=== PATIENT | male | born 1940 | race Caucasian/White ===

== ENCOUNTER 2016-10-27 12:45 | Emergency (ER) | payer OTHER ==
[2016-10-27 12:54] VITALS: BP 165/94; PULSE 64; RESP 18; TEMP 99; O2SAT 96
[2016-10-27] MEDS ORDERED: LIDOCAINE 2% JELLY 20 ML (UROJECT) ONE (13:51)
[2016-10-27 14:39] LABS: LEUKOCYTE ESTERASE,URINE 1+ (NEGATIVE)
[2016-10-27 14:43] LABS: COLOR AMBER
[2016-10-27 14:44] LABS: NITRITE,URINE NEGATIVE (NEGATIVE)
[2016-10-27 14:54] LABS: BACTERIA TRACE /hpf (NONE SEEN); MUCUS 1+ /lpf (NONE-1+); RBC,URINE >182 /hpf (0-3)
--- NOTE | 2016-10-27 14:59 | EDPHY ---
H & P Time Seen by Provider: 10/27/16 12:51 HPI/ROS: CHIEF COMPLAINT: Neumann catheter problem History by patient HISTORY OF PRESENT ILLNESS: 76-year-old man who presents complaining of pain and discomfort at the site of his Neumann catheter and leaking around the catheter. Catheter was placed 2 days ago at the OR when he was diagnosed with the UTI. Subsequently it has been draining fine but he has leakage around it is painful. He denies any fever chills or nausea or vomit. He has chronic back pain which is not worse with this. He has been taking Keflex as prescribed. REVIEW OF SYSTEMS: As in HPI, and all other systems reviewed and are negative Smoking Status: Former smoker Physical Exam: General Appearance: Alert, [ ]. Eyes: Pupils equal and round no pallor or injection. ENT, Mouth: Mucous membranes moist. Respiratory: Normal, effort, lungs are clear to auscultation. No wheezes, rales or rhonchi. Cardiovascular: Regular rate and rhythm. S1, S2 Gastrointestinal: Abdomen is soft and nontender, no masses, bowel sounds normal. : Neumann catheter in place draining clear fluid, no penile lesions Back: No CVA tenderness, no bony tenderness Neurological: Awake, alert and oriented x 3, no pronator drift, normal gait, no pronator drift Skin: Warm and dry, no rashes. Musculoskeletal: Neck is supple nontender. No deformities. Extremitie:s full range of motion, no edema Psychiatric: Patient has normal affect, there is no agitation. Constitutional: Initial Vital Signs Temperature (C) 37.2 C 10/27/16 12:49 Heart Rate 64 10/27/16 12:49 Respiratory Rate 18 10/27/16 12:49 Blood Pressure 165/94 H 10/27/16 12:49 O2 Sat (%) 96 10/27/16 12:49 O2 Delivery Mode Room Air Allergies/Adverse Reactions: erythromycin base Allergy (Verified 10/27/16 12:47) Home Medications: Medication Instructions Recorded Alluprinol 10/27/16 Apriso 0.375 gm 10/27/16 Cephalexin 10/27/16 Hydrocodon-Acetaminoph 2.5-325 10/27/16 Lidocaine 2% Jelly [Lidocaine 2% 1 clinton TUBE Q4 PRN #1 tube 10/27/16 Jelly 30 gm] Lisinopril 10/27/16 Venlafaxine 75MG (*) 10/27/16 MDM/Departure - [facility] ED Course/Re-evaluation: 76-year-old man, who complains of Neumann catheter discomfort and leakage. Neumann catheter was changed. Urinalysis was sent. Patient is currently on Keflex. [facility] He has been given topical lidocaine jelly for comfort. - Depart Disposition: Home, Routine, Self-Care Clinical Impression: Neumann catheter problem Qualifiers: Encounter type: initial encounter Qualified Code(s): T83.9XXA - Unspecified complication of genitourinary prosthetic device, implant and graft, initial encounter Condition: Good Instructions: Neumann Catheter Placement and Care (ED) Additional Instructions: You were seen by Dr. Noreen Gudino today. Use topical lidocaine gel as needed for discomfort. Follow up with your physician at the OR to have the catheter removed in 2-4 weeks. Return for any worsening or new concerns. Prescriptions: Lidocaine 2% Jelly [Lidocaine 2% Jelly 30 gm] 1 [place] TUBE Q4 PRN #1 tube PRN Reason: pain Referrals: NONE *PRIMARY CARE P,. [Primary Care Provider] - As per Instructions
== END 2016-10-27 15:10 | disposition home or self-care (01) ==
LOC: CED 12:45
PROC: 0T9B70Z Drainage of Bladder with Drainage Device, Via Natural or Artificial Opening (ICD-10-PCS; principal; 2016-10-27)
DX: T83.038A Leakage of other urinary catheter, initial encounter (principal); Z87.891 Personal history of nicotine dependence; Y82.8 Other medical devices associated with adverse incidents
CPT/HCPCS: 81003-PO; 81015-PO

== ENCOUNTER → 2017-06-03 | Outpatient (CLI) | payer OTHER | LOC: CIMAGING 09:54 | PROVIDERS: ATTEND Family Medicine | DX: N28.9 Disorder of kidney and ureter, unspecified (principal); K59.00 Constipation, unspecified | CPT/HCPCS: 74018-PO ==

== ENCOUNTER → 2017-06-04 | Outpatient (CLI) | payer OTHER | LOC: CIMAGING 12:26 | PROVIDERS: ATTEND Family Medicine | DX: N50.819 Testicular pain, unspecified (principal); N50.3 Cyst of epididymis | CPT/HCPCS: 76870-PO ==

== ENCOUNTER 2017-06-11 15:39 | Inpatient (IN) | payer OTHER ==
--- NOTE | 2017-06-11 15:52 | CPEKG ---
Heart Rate: 110 RR Interval: 545 P-R Interval: 160 QRSD Interval: 78 QT Interval: 392 QTC Interval: 531 P [place]: 55 QRS [place]: 67 T Wave [place]: 72 EKG Severity - ABNORMAL ECG - EKG Impression: SINUS TACHYCARDIA EKG Impression: PAIRED VENTRICULAR PREMATURE COMPLEXES Electronically Signed By: Rajat Davis 11-Jun-2017 16:44:55
[2017-06-11] MEDS ORDERED: ASPIRIN 81 MG CHEWABLE TAB PO ONE (15:54)
--- NOTE | 2017-06-11 16:08 | EDPHY ---
H & P Stated Complaint: irregular heartbeat for the last 2 days. Denies cheat pain sob Time Seen by Provider: 06/11/17 15:44 HPI/ROS: This patient complains of irregular heartbeat describes extra beats and pauses. He has noticed the symptoms for 2 and half days now starting 3 evenings ago. He notes no exacerbating factors for her symptoms and no associated symptoms except for increased dyspnea on exertion since the onset of symptoms. He also does report 5 day history of nasal congestion and cough. He has been taking NyQuil cough and cold for this once a day since the onset of symptoms. He reports the cough is occasionally productive of sputum. He has no other complaints. Came in by private vehicle for evaluation of the symptoms. ROS: Constitutional: No fevers. Minimal fatigue. HEENT: Nasal congestion. No sore throat. No ear pain. Pulmonary: No hemoptysis. He denies baseline dyspnea. Cardiovascular: No chest pain. No lower extremity swelling. GI: Reports mild bloating that he attributes to intermittent constipation from Vicodin that he takes for musculoskeletal pain in his right ankle and back. He has not had come Vicodin 2 days and reports having a bowel movement 3 hr prior to arrival. : No dysuria. No other complaints Musculoskeletal: Chronic right ankle and back pain without change recently. Integumentary: No rash. No diaphoresis Endocrine: No complaints Complete review of symptoms is otherwise negative. Source: Patient Exam Limitations: No limitations - Medical/Surgical History PMH: Hypertension Renal insufficiency Hx Renal Disease: Yes Other PMH: Ortho Surg/ Kidney stage 4 DX/ - Family History Significant Family History: No pertinent family hx - Social History Smoking Status: Former smoker (He quit smoking in 1992) Alcohol Use: None Drug Use: None - Physical Exam Exam: General Appearance: Alert, no distress. Eyes: Pupils equal and round no pallor or injection. ENT, Mouth: Mucous membranes moist. Respiratory: There are no retractions, lungs are clear to auscultation. Cardiovascular: Irregularly irregular with no murmur gallop or rub. No peripheral edema. No JVD. Gastrointestinal: Abdomen is soft and nontender, no masses, bowel sounds normal. Back: No CVA tenderness Neurological: GCS 15 with no focal deficits. Skin: Warm and dry, no rashes. Musculoskeletal: Neck is supple nontender. Extremities are symmetrical, full range of motion. Psychiatric: Mood and affect are normal DIFFERENTIAL DIAGNOSIS: After history and physical exam differential diagnosis was considered for PVCs from increased adrenergic drive from [id number] decongestants, myocardial ischemic disease, pneumonia, CHF, thyroid disease Constitutional: Initial Vital Signs Temperature (C) 36.4 C 06/11/17 15:40 Heart Rate 87 06/11/17 15:40 Respiratory Rate 20 06/11/17 15:40 Blood Pressure 201/74 H 06/11/17 15:40 O2 Sat (%) 93 06/11/17 15:40 O2 Delivery Mode Nasal Cannula O2 (L/minute) 2 Allergies/Adverse Reactions: erythromycin base Allergy (Verified 06/11/17 15:53) Home Medications: Medication Instructions Recorded Alluprinol 10/27/16 Apriso 0.375 gm 10/27/16 Cephalexin 10/27/16 Hydrocodon-Acetaminoph 2.5-325 10/27/16 Lidocaine 2% Jelly [Lidocaine 2% 1 [place] TUBE Q4 PRN #1 tube 10/27/16 Jelly 30 gm] Lisinopril 10/27/16 Venlafaxine 75MG (*) 10/27/16 Medical Decision Making - Diagnostics EKG Interpretation: 12 lead EKG performed at 3:50 p.m. Indication heart palpitations Sinus tachycardia 110 with paired PVCs PA interval of 160, QRS of 78, QTC of 531, axis: P of 55, QRS of 67, T of 72 ST segments: Appear normal throughout by my interpretation overall assessment sinus tachycardia parent PVCs. No prior available for comparison Repeat 12 lead EKG performed at 5:29 p.m. Reveals sinus rhythm at 99 Intervals: Normal throughout [place]: P of 50, QRS of 65, T of 68 Overall assessment sinus rhythm with ventricular bigeminy. No significant interval change from initial EKG. Imaging Results: Imaging Impressions Chest X-Ray 06/11/17 15:54 Impression: Prominence of perihilar interstitial markings and peribronchial cuffing. Findings are nonspecific but can be seen with bronchitis, reactive airway disease, or viral process. Two view chest x-ray: Mild to moderate pulmonary edema by my interpretation Imaging: I viewed and interpreted images myself ED Course/Re-evaluation: Course: IV, monitor, O2 for 90% O2 sat on room air increases him to the mid 90s Aspirin 324 chewed Studies: CBC is normal. Creatinine is elevated to 2.4-baseline for this patient with renal sufficiency per his report, other electrolytes normal Troponin is elevated to the 1.05 BNP is also elevated above 3000 TSH is normal After review of the labs with elevated troponin, I ordered 0.5 in nitropaste. I also ordered 20 of IV Lasix for CHF in 25 mg of metoprolol p.o.. I spoke with Dr. Rey Servin, plant protection officer sanitation laborer for [facility]. He agrees with plan for admission to the hospitalist. They will consult. The paged the hospitalist at 4:55 p.m. I spoke with Dr. Mandi Escamilla at 5:10 p.m. Who accepts the patient for transfer to PCU bed at [facility]. I discussed the patient's workup results with him and plan for admission. He is comfortable with plan for admission to [facility]. Discussion: Patient with presentation of frequent PVCs and mild CHF along with elevated troponin concerning for non ST elevation WI versus unstable angina without associated chest pain. Patient remained stable while here. His initial tachycardia resolved. I counseled the patient regarding this. - Data Points Laboratory Results: Laboratory Results 06/11/17 16:05 06/11/17 06/11/17 06/11/17 16:05 16:05 16:05 WBC 6.13 10^3/uL 10^3/uL (3.80-9.50) RBC 4.91 10^6/uL 10^6/uL (4.40-6.38) Hgb 14.5 g/dL g/dL (13.7-17.5) POC Hgb Hct 44.3 % % (40.0-51.0) POC Hct MCV 90.2 fL fL (81.5-99.8) MCH 29.5 pg pg (27.9-34.1) MCHC 32.7 g/dL g/dL (32.4-36.7) RDW 14.4 % % (11.5-15.2) Plt Count 303 10^3/uL 10^3/uL (150-400) MPV 10.3 fL fL (8.7-11.7) Neut % (Auto) 37.6 % L % (39.3-74.2) Lymph % (Auto) 47.3 % H % (15.0-45.0) [place] % (Auto) 9.8 % % (4.5-13.0) Eos % (Auto) 4.4 % % (0.6-7.6) Baso % (Auto) 0.7 % % (0.3-1.7) Nucleat RBC Rel Count 0.0 % % (0.0-0.2) Absolute Neuts (auto) 2.31 10^3/uL 10^3/uL (1.70-6.50) Absolute Lymphs (auto) 2.90 10^3/uL 10^3/uL (1.00-3.00) Absolute Monos (auto) 0.60 10^3/uL 10^3/uL (0.30-0.80) Absolute Eos (auto) 0.27 10^3/uL 10^3/uL (0.03-0.40) Absolute Basos (auto) 0.04 10^3/uL 10^3/uL (0.02-0.10) Absolute Nucleated RBC 0.00 10^3/uL 10^3/uL (0-0.01) Immature Gran % 0.2 % % (0.0-1.1) Immature Gran # 0.01 10^3/uL 10^3/uL (0.00-0.10) POC Sodium POC Potassium POC Chloride POC BUN POC Creatinine POC Glucose Troponin I 1.050 ng/mL H ng/mL (0.000-0.034) TSH 2.720 uIU/mL uIU/mL (0.465-4.680) 06/11/17 16:02 WBC RBC Hgb POC Hgb 14.6 gm/dL gm/dL (13.7-17.5) Hct POC Hct 43 % % (40-51) MCV MCH MCHC RDW Plt Count MPV Neut % (Auto) Lymph % (Auto) [place] % (Auto) Eos % (Auto) Baso % (Auto) Nucleat RBC Rel Count Absolute Neuts (auto) Absolute Lymphs (auto) Absolute Monos (auto) Absolute Eos (auto) Absolute Basos (auto) Absolute Nucleated RBC Immature Gran % Immature Gran # POC Sodium 142 mEq/L mEq/L (135-145) POC Potassium 4.5 mEq/L mEq/L (3.3-5.0) POC Chloride 107 mEq/L mEq/L (97-110) POC BUN 41 mg/dL H mg/dL (7-23) POC Creatinine 2.4 mg/dL H mg/dL (0.7-1.3) POC Glucose 117 mg/dL H mg/dL (70-100) Troponin I TSH Medications Given: Discontinued Medications Aspirin (Aspirin) 324 mg PO EDNOW ONE Stop: 06/11/17 15:55 Last Admin: 06/11/17 16:00 Dose: 324 mg Furosemide (Lasix Injection) 20 mg IVP EDNOW ONE Stop: 06/11/17 16:53 Last Admin: 06/11/17 16:57 Dose: 20 mg Metoprolol Tartrate (Lopressor) 25 mg PO EDNOW ONE Stop: 06/11/17 16:54 Last Admin: 06/11/17 16:56 Dose: 25 mg Nitroglycerin (Nitro-Bid 2%) 0.5 inch TP EDNOW ONE Stop: 06/11/17 16:49 Last Admin: 06/11/17 16:51 Dose: 0.5 inch Point of Care Test Results: 06/11/17 16:02 POC Sodium 142 POC Potassium 4.5 POC Chloride 107 POC BUN 41 H POC Creatinine 2.4 H POC Glucose 117 H Departure - Departure Disposition: [facility] Inpatient Acute Clinical Impression: Frequent PVCs, Elevated troponin CHF (congestive heart failure) Qualifiers: Heart failure type: unspecified Heart failure chronicity: acute Qualified Code( s): I50.9 - Heart failure, unspecified Condition: Fair
[2017-06-11 16:09] LABS: PLATELET COUNT 303 10^3/uL (150-400)
[2017-06-11] MEDS ORDERED: NITROGLYCERIN 2% 1 GM PACKET TP ONE (16:48)
[2017-06-11] MEDS ORDERED: FUROSEMIDE 20 MG/2 ML VIAL IVP ONE (16:52)
[2017-06-11] MEDS ORDERED: METOPROLOL TARTRATE 25 MG TAB PO ONE (16:53)
--- NOTE | 2017-06-11 17:35 | CPEKG ---
Heart Rate: 99 RR Interval: 606 P-R Interval: 169 QRSD Interval: 82 QT Interval: 392 QTC Interval: 504 P [place]: 58 QRS [place]: 65 T Wave [place]: 68 EKG Severity - ABNORMAL ECG - EKG Impression: SINUS RHYTHM EKG Impression: VENTRICULAR BIGEMINY EKG Impression: PROBABLE LEFT ATRIAL ABNORMALITY Electronically Signed By: Rajat Davis 11-Jun-2017 23:18:01
[2017-06-11] MEDS ORDERED: ACETAMINOPHEN 325 MG TAB PO PRN (19:14)
[2017-06-11] MEDS ORDERED: ONDANSETRON DISINTEGRATING 4 MG TAB PO PRN (19:14)
[2017-06-11] MEDS ORDERED: ONDANSETRON 4 MG/2 ML VIAL IVP PRN (19:14)
[2017-06-11] MEDS ORDERED: FUROSEMIDE 40 MG/4 ML VIAL IVP ONE (19:21)
--- NOTE | 2017-06-11 19:32 | PDGENHP ---
History and Physical - History of Present Illness History Information - Allergies/Home Medication List Allergies/Adverse Reactions: erythromycin base Allergy (Verified 06/11/17 15:53) Home Medications: Alluprinol 10/27/16 [Last Taken Unknown] Apriso 0.375 gm 10/27/16 [Last Taken Unknown] Hydrocodon-Acetaminoph 2.5-325 10/27/16 [Last Taken Unknown] Lisinopril 10/27/16 [Last Taken Unknown] Venlafaxine 75MG (*) 10/27/16 [Last Taken Unknown] Another Med He Does Not Know 06/11/17 [Last Taken Unknown] Citracal 06/11/17 [Last Taken Unknown] - Social History Smoking Status: Former smoker (He quit smoking in 1992) Alcohol Use: None Drug Use: None Review of Systems Review of Systems: Physical Exam Physical Exam: Temp Pulse Resp BP Pulse Ox 36.7 C 78 16 165/76 H 97 06/11/17 19:00 06/11/17 19:00 06/11/17 19:00 06/11/17 19:00 06/11/17 19:00 O2 (L/minute) 2 Lab Data & Imaging Review 06/11/17 16:05 WBC 6.13 10^3/uL (3.80-9.50) 06/11/17 16:05 RBC 4.91 10^6/uL (4.40-6.38) 06/11/17 16:05 Hgb 14.5 g/dL (13.7-17.5) 06/11/17 16:05 POC Hgb 14.6 gm/dL (13.7-17.5) 06/11/17 16:02 Hct 44.3 % (40.0-51.0) 06/11/17 16:05 POC Hct 43 % (40-51) 06/11/17 16:02 MCV 90.2 fL (81.5-99.8) 06/11/17 16:05 MCH 29.5 pg (27.9-34.1) 06/11/17 16:05 MCHC 32.7 g/dL (32.4-36.7) 06/11/17 16:05 RDW 14.4 % (11.5-15.2) 06/11/17 16:05 Plt Count 303 10^3/uL (150-400) 06/11/17 16:05 MPV 10.3 fL (8.7-11.7) 06/11/17 16:05 Neut % (Auto) 37.6 % (39.3-74.2) L 06/11/17 16:05 Lymph % (Auto) 47.3 % (15.0-45.0) H 06/11/17 16:05 [place] % (Auto) 9.8 % (4.5-13.0) 06/11/17 16:05 Eos % (Auto) 4.4 % (0.6-7.6) 06/11/17 16:05 Baso % (Auto) 0.7 % (0.3-1.7) 06/11/17 16:05 Nucleat RBC Rel Count 0.0 % (0.0-0.2) 06/11/17 16:05 Absolute Neuts (auto) 2.31 10^3/uL (1.70-6.50) 06/11/17 16:05 Absolute Lymphs (auto) 2.90 10^3/uL (1.00-3.00) 06/11/17 16:05 Absolute Monos (auto) 0.60 10^3/uL (0.30-0.80) 06/11/17 16:05 Absolute Eos (auto) 0.27 10^3/uL (0.03-0.40) 06/11/17 16:05 Absolute Basos (auto) 0.04 10^3/uL (0.02-0.10) 06/11/17 16:05 Absolute Nucleated RBC 0.00 10^3/uL (0-0.01) 06/11/17 16:05 Immature Gran % 0.2 % (0.0-1.1) 06/11/17 16:05 Immature Gran # 0.01 10^3/uL (0.00-0.10) 06/11/17 16:05 POC Sodium 142 mEq/L (135-145) 06/11/17 16:02 POC Potassium 4.5 mEq/L (3.3-5.0) 06/11/17 16:02 POC Chloride 107 mEq/L (97-110) 06/11/17 16:02 POC BUN 41 mg/dL (7-23) H 06/11/17 16:02 POC Creatinine 2.4 mg/dL (0.7-1.3) H 06/11/17 16:02 POC Glucose 117 mg/dL (70-100) H 06/11/17 16:02 Troponin I 1.050 ng/mL (0.000-0.034) H 06/11/17 16:05 NT-Pro-B Natriuret Pep 3360 pg/mL (0-450) H 06/11/17 Unknown TSH 2.720 uIU/mL (0.465-4.680) 06/11/17 16:05 Assessment & Plan Assessment: CHF (congestive heart failure) (Acute) Elevated troponin (Acute) Frequent PVCs (Acute)
--- NOTE | 2017-06-11 20:49 | GHP ---
[f rep st] HISTORY AND PHYSICAL DATE OF ADMISSION: 06/11/2017 CHIEF COMPLAINT: Palpitations. HISTORY OF PRESENT ILLNESS: The patient is a 77-year-old male with a history of hypertension and chronic kidney disease, who presented to the emergency department in [place] complaining of heart palpitations. He states his symptoms started 3 days ago. He denies chest pain or chest pressure. He denies shortness of breath and also denies orthopnea or paroxysmal nocturnal dyspnea. He denies fevers, chills or cough. He has had no peripheral edema. After 3 days of feeling irregular heart beats with palpitations, he mentioned this to his roommate who advised he should come to the hospital for evaluation. In the emergency department, workup revealed an elevated troponin of 1.05, creatinine of 2.5, an elevated BNP, and a chest x-ray concerning for acute heart failure. The patient was transferred to the PCU for hospitalization and further management. PAST MEDICAL HISTORY: 1. Hypertension. 2. Chronic kidney disease followed by Nephrology at the [facility] with baseline creatinine of 2.5. 3. History of tobacco abuse, quit in 1992. 4. Multiple orthopedic surgeries. MEDICATIONS: Please see [facility] for completed outpatient medication list. ALLERGIES: Erythromycin. FAMILY HISTORY: Reviewed and noncontributory. SOCIAL HISTORY: The patient lives independently with a roommate. He reports infrequent alcohol use. He has a history of tobacco abuse and states he quit in 1992. REVIEW OF SYSTEMS: A 10-point review of systems was performed and is negative as per HPI. OBJECTIVE: VITAL SIGNS: Temperature 36.7, blood pressure 152/67, heart rate 79 , respiratory rate 16. He is 96% on 2 L of oxygen by nasal cannula. GENERAL: Patient is awake, alert, oriented, in no distress. HEENT: Head is atraumatic, normocephalic. Pupils equal, round, react to light. Extraocular muscles intact. Oropharynx is clear. Mucous members are moist. NECK: Supple. He has 8 cm of JVD. HEART: Irregular without murmur, gallop, or rub. LUNGS: Reveal crackles at the bases bilaterally without wheezes. ABDOMEN: Soft, nondistended, nontender with normoactive bowel sounds. EXTREMITIES: He has trace peripheral edema in the right lower extremity related to prior ankle surgery, which is his baseline. NEUROLOGIC: Exam is grossly nonfocal. LABORATORY DATA: CBC is completely normal. Basic metabolic panel is remarkable for a BUN of 41, creatinine 2.4, blood glucose 117. Troponin is elevated at 1.050. NT proBNP is 3360. TSH is 2.7. DIAGNOSTIC STUDIES: EKG is personally reviewed and interpreted, shows normal sinus rhythm with frequent PVCs bigeminy pattern and occasional PACs. There are no ST-segment or T-wave changes concerning for acute ischemia. Chest x-ray is personally reviewed and interpreted. I suspect some element of pulmonary edema. There are no pleural effusions or focal infiltrates. ASSESSMENT AND PLAN: The patient is a 77-year-old male with a history of hypertension, chronic kidney disease, who presents to the emergency department with palpitations. Admitted to hospital with elevated troponin and acute heart failure. 1. Acute heart failure exacerbation, unknown if this is diastolic or systolic. There is no prior echo available for review. He received IV Lasix this evening. We will continue with IV Lasix diuresis. Follow his I's and O's and daily weights. An echocardiogram is ordered. His frequent premature ventricular contractions may be a symptom of his acute heart failure. He likely warrants ischemic evaluation at some point, though this is deferred at this time due to his elevated creatinine. Cardiology is consulted. 2. Elevated troponin of 1.05. This may be a troponin leak in the setting of acute heart failure versus poor renal clearance in the setting of chronic kidney disease. His EKG is nonischemic. Will trend his troponin. Cardiology is consulted. He likely warrants angiogram at some point, though does not seem urgent and his elevated creatinine precludes cath at this time. Will continue him on daily aspirin and beta luann, as well as nitroglycerin paste. Check lipid status. 3. Hypertension. The patient usually takes lisinopril as an outpatient. We will continue this once his med rec is completed. He has also been started on a beta luann and will continue nitroglycerin paste for now. 4. Chronic kidney disease. His baseline creatinine is 2.5. Creatinine on arrival was 2.4. He has no urgent dialysis needs. His electrolytes are normal. I discussed the case with Dr. Carter from [facility] and they will consult tomorrow for further discussions regarding need for possible angiogram. 5. Code status: Patient is full code. 6. DVT prophylaxis: Heparin. 7. Disposition: The patient is admitted to inpatient status. I anticipate greater than 48 hours of hospitalization for ongoing management of acute heart failure, elevated troponin, and chronic kidney disease. /[id number]/MODL MTDD
[2017-06-11] MEDS: METOPROLOL TARTRATE 25 MG TAB PO SCH (21:58)
[2017-06-11] MEDS: NITROGLYCERIN 2% 1 GM PACKET TP SCH (22:30)
[2017-06-11] MEDS: HEPARIN 5,000 UNIT/0.5 ML SYR SC SCH (22:30)
--- NOTE | 2017-06-11 22:50 | GCON ---
[f rep st] CONSULTATION CARDIOLOGY CONSULT REFERRING PHYSICIAN: Mandi Escamilla MD CHIEF COMPLAINT: Palpitations. HISTORY OF PRESENT ILLNESS: This is a 77-year-old male with history of hypertension and chronic michael l insufficiency who presented to [facility] with complaints of palpitations. The patient was found to have an ECG with sinus rhythm with PVCs. Of note, the patient was found to have a creatinine of 2.4 with an elevated BNP over 3000. The patient's 1st troponin level was apparently 1.0 with a chest x-ray wh ich showed bilateral congestion. The patient was administered IV Lasix, as well as Lopressor, and wa s transferred to [facility] for further evaluation. Upon evaluation, the patient ambrocio castillo is currently resting very quietly. Denies any discomfort at this point. Blood pressure is mildl y elevated. Heart rate is stable. He indicates that he has been having a recent upper respiratory i nfection which has gotten worse over the last 24 hours with the palpitations. Denies any recent card iac history. [facility] [place] [facility] and has had a number of orthopedic issues involving his ankle and back. PAST MEDICAL HISTORY: 1. Significant for musculoskeletal issues revolving around lower back and ankle issues. 2. Chronic renal insufficiency. 3. Hypertension. HOME MEDICATIONS: Consist of Vicodin, lisinopril. SOCIAL HISTORY: Was a former smoker. Denies any alcohol or drug use. FAMILY HISTORY: Noncontributory. REVIEW OF SYSTEMS: Patient denies any visual changes. No headache. No palpitations. No chest pain . Does indicate having mild skipped beat sensation in the chest. No abdominal pain. No new lower e xtremity pain other than chronic ankle discomfort and lower back pain. PHYSICAL EXAM: VITAL SIGNS: Patient is afebrile at 96, blood pressure 170/70 with a heart rate of 7 4, respirations 12, saturation 95% on 2 L nasal cannula. HEENT: Pupils equal, round, and reactive t o light and accommodation. Extraocular movements intact. CARDIOVASCULAR: Irregularly irregular S1, S2. No murmurs auscultated. LUNGS: Decreased breath sounds at the bases. ABDOMEN: Soft, nontend er, no guarding. EXTREMITIES: No clubbing, no cyanosis, no edema. NEUROLOGIC: The patient is aler t, oriented x3. LABORATORY VALUES: Currently show a white cell 6.1, hemoglobin 14.5, platelet count of 303. Creatin ine of 2.4, BUN 41, sodium 142, potassium 4.5. Troponin, 1st set, 1.0. NT BNP of 3360. TSH is norm al. Chest x-ray shows bilateral congestive changes consistent with pneumonia/heart failure. ASSESSMENT/PLAN: Palpitations/elevated troponin. At this time, the patient is currently asymptomati c and feels much better since his arrival to the emergency room. I will continue with Lopressor 25 m g p.o. twice daily for additional blood pressure and PVC control. Check laboratory values in the mor faith and trend troponins. Would also start the patient on baby aspirin and Lasix 40 mg IV twice toi y. Will check an echocardiogram and would suggest consulting Nephrology given the patient's history of chronic renal insufficiency. Given the patient's current presentation, an ischemic evaluation zheng uld be undertaken. However, given the patient's current clinical stability, as well as his renal ins ufficiency, I would be hesitant to take the patient directly to the catheterization laboratory at thi s time until we achieve a fluid balance stability, as well as baseline creatinine stability. Once we have established what his baseline creatinine is and have treated him for any mild fluid overload, t james it would be more appropriate to define his coronary anatomy, i.e. with a heart catheterization. We will continue to follow. Thank you for the consultation. /[id number]/MODL
[2017-06-12] MEDS: NITROGLYCERIN 2% 1 GM PACKET TP SCH ×4 (00:12→22:32)
--- NOTE | 2017-06-12 02:50 | PDMN ---
Medical Necessity Medical necessity: C/M review: est. > 2 MN LOS for eval and TX of acute heart failure exacerbation- unknown if this is diastolic or systolic, elevated troponin, requiring Cardiology consult, planned echocardiogram, planned 2017 Nephrology consult, possible future cardiac angiogram during this admission , ongoing IV Lasix, pulse oximetry, supplemental O2 comorbid hypertension, chronic kidney disease, history of tobacco abuse, patient quit in 1992 per H/P.
[2017-06-12 04:06] LABS: INR 0.97 (0.83-1.16); PROTIME(PATIENT) 13.1 SEC (12.0-15.0)
[2017-06-12] MEDS: HEPARIN 5,000 UNIT/0.5 ML SYR SC SCH ×4 (07:55→22:45)
--- NOTE | 2017-06-12 09:15 | SOAPPROG ---
[facility] Progress Note Assessment/Plan: Assessment: 77-year-old male admitted with heart failure symptoms and nonsustained ventricular tachycardia. He has renal insufficiency, elevated troponin and I did BNP. Echocardiogram is pending at this time. Telemetry shows sinus rhythm with frequent PVCs and nonsustained ventricular tachycardia. Plan: -nephrology to see the patient to optimize renal function -coronary angiography is indicated, risks of this include renal failure and patient needing permanent dialysis. This was discussed with the patient. He is going to think about this today and let us know tomorrow whether he wants to have coronary angiography or not. -echocardiogram to assess LV function -continue metoprolol and furosemide. Watch renal function closely 06/12/17 09:13 Subjective: Reports that he feels better. Palpitations have subsided Objective: Vital Signs Temp Pulse Resp BP Pulse Ox 36.9 C 72 19 123/78 H 96 06/12/17 07:46 06/12/17 07:46 06/12/17 07:46 06/12/17 07:46 06/12/17 07:46 Laboratory Results 06/12/17 03:15 06/10/17 06/11/17 06/12/17 11:59 11:59 11:59 Intake Total 150 Output Total 1575 Balance -1425 PT 13.1 SEC (12.0-15.0) 06/12/17 03:15 INR 0.97 (0.83-1.16) 06/12/17 03:15 - Time Spent With Patient Time Spent With Patient: 15 min - Pending Discharge Pending Discharge Within 24 Hours: No Pending Discharge Within 48 Hours: No ICD10 Worksheet Patient Problems: Problems Problem Status Onset Frequent PVCs Acute CHF (congestive heart failure) Acute Elevated troponin Acute
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
--- NOTE | 2017-06-12 10:25 | HOSPPROG ---
Hospitalist Progress Note Assessment/Plan: * NSTEMI * thinking about cath * echo pending * having NSVT * NSVT * metoprolol * CHF * echo pending * getting diuresed *CKD * at baseline * nephrology following * HTN * off lisisnpril * on metoprolol *dvt proph * heparin Subjective: feels ok. back to normal Objective: Vital Signs Temp Pulse Resp BP Pulse Ox 36.9 C 72 19 123/78 H 96 06/12/17 07:46 06/12/17 07:46 06/12/17 07:46 06/12/17 07:46 06/12/17 07:46 Laboratory Results 06/12/17 03:15 06/11/17 06/12/17 06/13/17 05:59 05:59 06:59 Intake Total 150 Output Total 1575 Balance -1425 PT 13.1 SEC (12.0-15.0) 06/12/17 03:15 INR 0.97 (0.83-1.16) 06/12/17 03:15 - Physical Exam Constitutional: no apparent distress, appears nourished, not in pain Eyes: anicteric sclera, EOMI Ears, Nose, Mouth, Throat: moist mucous membranes, hearing normal Cardiovascular: regular rate and rhythym, no murmur, rub, or gallop Respiratory: no respiratory distress, no rales or rhonchi, clear to auscultation Gastrointestinal: normoactive bowel sounds, soft, non-tender abdomen, no palpable masses Skin: warm Neurologic: AAOx3 Psychiatric: interacting appropriately, not anxious, not encephalopathic, thought process linear ICD10 Worksheet Patient Problems: Problems Problem Status Onset CHF (congestive heart failure) Acute Elevated troponin Acute Frequent PVCs Acute
[2017-06-12] MEDS: FUROSEMIDE 40 MG/4 ML VIAL IVP SCH ×2 (10:31→18:34)
[2017-06-12] MEDS: METOPROLOL TARTRATE 25 MG TAB PO SCH ×2 (10:31→22:01)
[2017-06-12] MEDS: ASPIRIN 81 MG CHEWABLE TAB PO SCH (10:31)
--- NOTE | 2017-06-12 10:43 | ECHO ---
[email or web address] [address] Main: [phone] Fax: Transthoracic Echocardiogram Name: MELANIE COLLADO MR#: [id number] Study Date: 06/12/2017 Study Time: 09:16 AM Date of : 1940 Age: 77 year(s) Height: ( ) Weight: ( ) BSA: Gender: Male Examination: Echo Indication: Elevated Troponins Image Quality: Contrast: Requested by: Mandi Escamilla BP: 123 mmHg/78 mmHg Heart Rate: Rhythm: Normal sinus rhythm with ectopy Indication: Elevated Troponins Procedure Staff Roll Press Operator: Huey Navas RDCS Reading Physician: Bob Chambers MD Requesting Provider: Conclusions: Normal global systolic LV function. EF is 56 %. Diastolic dysfunction is present. . Mild mitral valve leaflet calcification is present. Mild aortic cusp calcification is noted. Ectopy/Bigeminy noted during entire exam.. Measurements: Chambers Valvular Assessment AV/MV Valvular Assessment TV/PV Normal Normal Normal Name Value Range Name Value Range Name Value Range Ao Meli (MM): 3.0 cm (2.2 cm-3.7 AV Vmax: 1.62 m/s (1 m/s-1.7 PV Vmax: 1.06 m/s (0.6 m/s-0.9 cm) m/s) m/s) IVSd (2D): 0.8 cm (0.6 cm-1.1 AV maxP mmHg ( - ) PV PGmax: 4 mmHg ( - ) cm) LVOT Vmax: 0.78 m/s (0.7 m/s-1.1 LVDd (2D): 5.0 cm (4.2 cm-5.9 m/s) cm) MV E Vmax: 0.78 m/s ( - ) LVDs (2D): 3.6 cm (2.1 cm-4 MV A Vmax: 0.91 m/s ( - ) cm) MV E/A: 0.86 ( - ) LVPWd (2D): 1.1 cm (0.6 cm-1 cm) LVEF (MM): 56 (>=55 %) Continued Measurements: Chambers Valvular Assessment AV/MV Name Value Name Value LADs Lon.2 cm MV E/E' Septal: 12.90 LA Area: 21.0 cm2 MV E/E' Lateral: 16.70 LA Volume: 56 ml Patient: MELANIE COLLADO Study Date: 06/12/2017 Page 1 of 2 09:16 AM Findings: Left Ventricle: Normal size left ventricle. No LV hypertrophy. Normal global systolic LV function. EF is 56 %. No regional wall motion abnormality. Diastolic dysfunction is present. . Right Ventricle: Normal size right ventricle. Left Atrium: The left atrium is normal in size. Right Atrium: The right atrium is normal in size. Mitral Valve: Mild mitral valve leaflet calcification is present. Trivial to mild mitral regurgitation. Aortic Valve: The aortic valve is tri-leaflet. Mild aortic cusp calcification is noted. There is no aortic valve regurgitation. Tricuspid Valve: Trivial tricuspid valve regurgitation. The pulmonary artery pressure is normal. Pulmonic Valve: The pulmonic valve is normal in appearance and function. Aorta: The aorta is normal. Pericardium: No pericardial effusion. Exam Comments: Ectopy/Bigeminy noted during entire exam.. (No Signature Object) Patient: MELANIE COLLADO Study Date: 06/12/2017 Page 2 of 2 09:16 AM [id number]
--- NOTE | 2017-06-12 12:36 | ASMTCMCOM ---
CM Note CM Note Notes: Chart reviewed for discharge planning purposes. Patient is 77 year old male with multiple medical problems admitted via ED with elevated troponin and CHF. Normally lives independently with a room mate. Planned heart cath for Wednesday. Needs to be determined. CM to follow. Date Signed: 06/12/2017 12:35 PM Electronically Signed By:Clover Ellington RN
[2017-06-12] MEDS ORDERED: HYDROCODONE/APAP 5/325 TAB PO PRN (15:29)
[2017-06-12] MEDS: VENLAFAXINE HCL 75 MG TAB PO SCH (18:35)
[2017-06-12] MEDS: FINASTERIDE 5 MG TAB PO SCH (18:35)
[2017-06-12] MEDS: ALLOPURINOL 100 MG TAB PO SCH (18:37)
[2017-06-13] MEDS: NITROGLYCERIN 2% 1 GM PACKET TP SCH ×3 (00:19→14:11)
[2017-06-13] MEDS: HEPARIN 5,000 UNIT/0.5 ML SYR SC SCH ×2 (07:10→16:36)
--- NOTE | 2017-06-13 09:20 | PDCARPN ---
Cardiology Progress Note Chief Complaint: No cardiovascular complaints this morning. Up at side of bed eating breakfast. Assessment/Plan: Assessment: Patient is a 77 y/o male with history of chronic renal insufficiency ( [facility] patient reports), HTN, and PVD (non critical, but noted on x-rays from recent past to the lower extremities), with admission to [facility] with palpitations. No chest pains or pressure have been noted. No PND or orthopnea. Medications (beta blockers) have led to a complete cessation of the previously noted palpitations. Creatinine levels are slightly higher today (uncertain what the patient's baseline creatinine has been ). Discussion about angiography was started yesterday, but given lack of symptoms, and ongoing renal insufficiency, this is not an active plan. Troponin elevation could be secondary to renal dysfunction (Trend is flat). Plan: (1) Would continue therapy on lopressor (2) Nephrology to see patient again today (3) Consideration for patient to have further cardiac work up in the outpatient setting given the lack of symptoms at present. Subjective: No active cardiovascular complaints Reviewed/Discussed With: hospitalist, multidisciplinary team Objective: Vital Signs (8 Hrs) Temp Pulse Resp BP Pulse Ox 06/13/17 08:00 36.7 C 76 16 132/59 H 93 06/13/17 03:43 36.9 C 70 16 116/56 L 94 Intake/Output (24 Hrs) 06/12/17 06/13/17 06/14/17 04:59 05:59 05:59 Intake Total Output Total Balance Intake: Oral (ml) Output: Urine (ml) Urinal Other: Weight Intake Quantity Sufficient Number of Voids Number of Stools Urinal Result Diagrams: 06/11/17 16:05 06/13/17 03:20 Cardiac Labs: Cardiac Lab Results (72 Hrs) 06/12/17 06/11/17 03:15 22:13 Troponin I 1.020 H 0.983 H Telemetry: Normal sinus rhythm with PVCs Echocardiogram: Normal LVEF - Physical Exam Constitutional: WDWN, healthy appearing, no apparent distress Eyes: PERRL, EOMI Ears, Nose, Mouth, Throat: moist mucous membranes Cardiovascular: no rubs, irregularly irregular (due to palpitations as noted on telemetry), pulses symmetric bilat, No jugular vein distention Peripheral Pulses: 2+: dorsalis-pedis (R), dorsalis-pedis (L) Respiratory: clear to auscultate bilat, no crackles Gastrointestinal: normoactive bowel sounds Skin: no rashes, no edema Musculoskeletal: no muscular tenderness Neurologic: AAOx3, CN II-XII grossly intact Psychiatric: cooperative, interactive, following commands ICD10 Worksheet Patient Problems: Problems Problem Status Onset CHF (congestive heart failure) Acute Elevated troponin Acute Frequent PVCs Acute
--- NOTE | 2017-06-13 09:36 | HOSPPROG ---
Hospitalist Progress Note Assessment/Plan: * NSTEMI * thinking about cath * echo looked OK * having NSVT * NSVT * metoprolol * CHF * echo looked OK * stop diuresis *CKD * little worse * stopped diuretics * nephrology following * HTN * off lisinopril * on metoprolol *dvt proph * heparin Subjective: feels pretty good Objective: Vital Signs Temp Pulse Resp BP Pulse Ox 36.7 C 76 16 132/59 H 93 06/13/17 08:00 06/13/17 08:00 06/13/17 08:00 06/13/17 08:00 06/13/17 08:00 Laboratory Results 06/13/17 03:20 06/12/17 06/13/17 06/14/17 04:59 05:59 05:59 Intake Total Output Total Balance PT 13.1 SEC (12.0-15.0) 06/12/17 03:15 INR 0.97 (0.83-1.16) 06/12/17 03:15 discussed with cardiology - Physical Exam Constitutional: no apparent distress, appears nourished, not in pain Eyes: anicteric sclera, EOMI Ears, Nose, Mouth, Throat: moist mucous membranes Cardiovascular: regular rate and rhythym, no murmur, rub, or gallop Respiratory: no respiratory distress, no rales or rhonchi, clear to auscultation Gastrointestinal: normoactive bowel sounds, soft, non-tender abdomen, no palpable masses Skin: warm Neurologic: AAOx3 Psychiatric: interacting appropriately, not anxious, not encephalopathic, thought process linear ICD10 Worksheet Patient Problems: Problems Problem Status Onset CHF (congestive heart failure) Acute Elevated troponin Acute Frequent PVCs Acute
[2017-06-13] MEDS: METOPROLOL TARTRATE 25 MG TAB PO SCH ×2 (09:55→20:38)
[2017-06-13] MEDS: ALLOPURINOL 100 MG TAB PO SCH (09:55)
[2017-06-13] MEDS: ASPIRIN 81 MG CHEWABLE TAB PO SCH (09:56)
[2017-06-13] MEDS: FINASTERIDE 5 MG TAB PO SCH (09:56)
[2017-06-13] MEDS: VENLAFAXINE HCL 75 MG TAB PO SCH (10:46)
[2017-06-13] MEDS ORDERED: NS 1,000 ML IV SCH (15:30)
--- NOTE | 2017-06-13 15:33 | SOAPPROG ---
SOAP Progress Note Assessment/Plan: Assessment/Plan: CKD 4: pt notes his baseline Cr is 2.5. His Cr here was 2.2 yesterday, up to 2.5 today in setting of hypotension and appears dry on exam. He has no emergent needs for dialysis but may be going for cardiac cath tomorrow. - NO needs for HD at this time. - Pt currently has a risk of SAMANTHA of about 14% and risk of injury requiring dialysis is around 0.12%. I have discussed these numbers with pt. - Will plan to hydrate with NS @ 50ml/hr starting now to help prepare for possible cath tomorrow. - Would not give additional Lasix at this time. - Will continue to monitor. HTN: BP on the low side, giving IVFs, will continue to monitor. Subjective: No acute events overnight. Pt still in bigeminy but not having palpitations. His BP yesterday was a bit lower, has not gotten Lasix since yesterday am. Objective: Vital Signs Temp Pulse Resp BP Pulse Ox 36.7 C 73 14 107/55 L 95 06/13/17 12:00 06/13/17 12:00 06/13/17 12:00 06/13/17 12:00 06/13/17 12:00 Laboratory Results 06/13/17 03:20 06/12/17 06/13/17 06/14/17 04:59 05:59 05:59 Intake Total Output Total Balance PT 13.1 SEC (12.0-15.0) 06/12/17 03:15 INR 0.97 (0.83-1.16) 06/12/17 03:15 General: alert and oriented, no acute distress Eyes; EOMI, PERRL OP: Clear CV: RRR Resp: nonlabored respirations on RA Abd: SOft, NT/ND Ext: no edema BLE Neuro; CN II-XII grossly intact, no asterixis Psych: cooperative, appropriate mood and affect ICD10 Worksheet Patient Problems: Problems Problem Status Onset CHF (congestive heart failure) Acute Elevated troponin Acute Frequent PVCs Acute
[2017-06-13] MEDS ORDERED: TEMAZEPAM 15 MG CAP PO PRN (18:15)
[2017-06-13] MEDS ORDERED: NITROGLYCERIN 0.4 MG BTL SL PRN (18:15)
[2017-06-14 04:34] LABS: PLATELET COUNT 274 10^3/uL (150-400)
[2017-06-14 04:41] LABS: INR 0.97 (0.83-1.16); PROTIME(PATIENT) 13.1 SEC (12.0-15.0)
[2017-06-14] MEDS ORDERED: NS 1,000 ML IV ONE (06:00)
[2017-06-14] MEDS ORDERED: diphenhydrAMINE 25 MG CAP PO ONE (06:00)
[2017-06-14] MEDS ORDERED: DIAZEPAM 5 MG TAB PO ONE (06:00)
[2017-06-14] MEDS ORDERED: FAMOTIDINE 20 MG TAB PO ONE (06:00)
[2017-06-14] MEDS: HEPARIN 5,000 UNIT/0.5 ML SYR SC SCH ×3 (06:24→21:25)
--- NOTE | 2017-06-14 08:15 | CPEKG ---
Heart Rate: 63 RR Interval: 952 P-R Interval: 168 QRSD Interval: 78 QT Interval: 408 QTC Interval: 418 P Ralph: 66 QRS Ralph: 76 T Wave Ralph: 76 EKG Severity - ABNORMAL ECG - EKG Impression: SINUS RHYTHM EKG Impression: MULTIFORM VENTRICULAR PREMATURE COMPLEXES Electronically Signed By: Kwasi Carter 14-Jun-2017 17:24:02
--- NOTE | 2017-06-14 10:14 | ASMTCMCOM ---
CM Note CM Note Notes: Chart reviewed. Patient's kidney function being closely monitored. For heart cath at some point today. Needs to be determined. Normally lives independently with a room mate. CM to follow for possible needs. Date Signed: 06/14/2017 10:14 AM Electronically Signed By:Clover Ellington RN
[2017-06-14] MEDS: METOPROLOL TARTRATE 25 MG TAB PO SCH ×2 (10:56→21:14)
[2017-06-14] MEDS: VENLAFAXINE HCL 75 MG TAB PO SCH (10:56)
[2017-06-14] MEDS: FINASTERIDE 5 MG TAB PO SCH (10:56)
[2017-06-14] MEDS: ASPIRIN 81 MG CHEWABLE TAB PO SCH (10:56)
[2017-06-14] MEDS: ALLOPURINOL 100 MG TAB PO SCH (10:56)
--- NOTE | 2017-06-14 12:22 | SOAPPROG ---
[facility] Progress Note Assessment/Plan: Assessment: 77-year-old male with cardiac risk factor profile that includes age/male gender and longstanding hypertension. He was admitted with palpitations related to PVCs and nonsustained VT. Troponins were noted to be elevated however without a clear pattern suggesting acute myocardial injury. Additionally, he has not had symptoms of dyspnea or chest discomfort. His echocardiogram is likewise normal without wall motion abnormalities and he has a normal ejection fraction. Given these findings could, and the fact that he has an elevated creatinine of 2.4 with significant risk of acute renal failure in the setting of a coronary angiogram or potential PCI, I think that we should proceed more cautiously. I think he is a candidate to proceed with noninvasive workup. I have ordered a stress myocardial perfusion imaging study which can be performed 1st thing in the morning. I also ordered a repeat troponin. Further recommendations will be made pending the completion of those studies. 06/14/17 12:16 Subjective: The patient was seen and examined. His chart was reviewed. He was admitted with symptoms of palpitations related to PVCs and nonsustained VT. His echocardiogram was noted to be normal. He has chronic renal insufficiency likely on the basis of longstanding hypertension. He denies symptoms of chest pain and symptoms of dyspnea. On arrival he was in sinus rhythm. He had an echocardiogram indicating a normal ejection fraction without wall motion abnormalities. Blood tests revealed an elevated troponin however there was no clear rise and fall to the pattern of elevation. He states he feels well today. If he really focuses on his heartbeat he can sense palpitations. Otherwise he has no symptoms. Objective: Vital Signs Temp Pulse Resp BP Pulse Ox 36.8 C 77 18 97/55 L 93 06/14/17 11:36 06/14/17 11:36 06/14/17 11:36 06/14/17 11:36 06/14/17 11:36 Laboratory Results 06/14/17 03:12 06/14/17 03:12 06/13/17 06/14/17 06/15/17 05:59 05:59 05:59 Intake Total 1090 Output Total 550 Balance 540 PT 13.1 SEC (12.0-15.0) 06/14/17 03:12 INR 0.97 (0.83-1.16) 06/14/17 03:12 Physical Exam - Physical Exam General Appearance: WD/WN, no apparent distress Neck: non-tender, full range of motion Respiratory: chest non-tender, lungs clear Cardiac/Chest: normal peripheral pulses, regular rate, rhythm, No edema, No gallop, No JVD Peripheral Pulses: 2+: carotid (R), carotid (L) Abdomen: non-tender, soft Rectal: deferred ICD10 Worksheet Patient Problems: Problems Problem Status Onset CHF (congestive heart failure) Acute Elevated troponin Acute Frequent PVCs Acute
--- NOTE | 2017-06-14 13:07 | SOAPPROG ---
SOAP Progress Note Assessment/Plan: Assessment: The patient is a 77 y/o F with a known h/o CKD who presented with NSVT now hypotensive. CKD 4: - baseline Cr 2.5, 2.4 today with some fluids - NO needs for HD at this time - Pt currently has a risk of SAMANTHA of about 14% and risk of injury requiring dialysis is around 0.12%, meaning would proceed with heart cath if necessary given high risk patient - May stop fluids and will monitor BP, can bolus if needed HTN: -hypotensive again today despite NSR with rate control -await stress test results -continue to hold lisinopril -consider am cortisol, blood cultures, TSH WNL, and cardiac work-up as above ( echo from 06/11 noted) -may also need to think about PE? BMD: -phos 5.9 -place on renal non-HD diet once eating again 06/14/17 13:56 Subjective: Patient feeling ok today. Did have one loose stool this am, but none previous to coming in. States he has "white coat HTN" when they take his BP at the [facility], however, his BP's normally run 130's systolic on lisinopril. No reported NSVT overnight. No h/o afib or other issues per patient. Objective: Vital Signs Temp Pulse Resp BP Pulse Ox 36.8 C 77 18 97/55 L 93 06/14/17 11:36 06/14/17 11:36 06/14/17 11:36 06/14/17 11:36 06/14/17 11:36 Laboratory Results 06/14/17 03:12 06/14/17 03:12 06/13/17 06/14/17 06/15/17 05:59 05:59 05:59 Intake Total 1090 Output Total 550 Balance 540 PT 13.1 SEC (12.0-15.0) 06/14/17 03:12 INR 0.97 (0.83-1.16) 06/14/17 03:12 Physical Exam - Physical Exam General Appearance: WD/WN, alert, no apparent distress EENT: PERRL/EOMI, normal ENT inspection Neck: non-tender, full range of motion, supple Respiratory: chest non-tender, lungs clear Cardiac/Chest: normal peripheral pulses, regular rate, rhythm Abdomen: normal bowel sounds, non-tender, soft Skin: normal color, warm/dry Extremities: normal range of motion, non-tender Neuro/Psych: no motor/sensory deficits, alert, normal mood/affect, oriented x 3 ICD10 Worksheet Patient Problems: Problems Problem Status Onset CHF (congestive heart failure) Acute Elevated troponin Acute Frequent PVCs Acute
--- NOTE | 2017-06-14 13:10 | HOSPPROG ---
Hospitalist Progress Note Assessment/Plan: 77-year-old man with chronic renal failure followed at the [facility] is admitted with palpitations. He is found to have indeterminate troponins on admission and multiple PVCs. He was noted to have nonsustained VT on telemetry while here. # elevated troponins, flat and in the indeterminate range. Reviewed Cardiology consult at this time they feel the risk outweighs the benefit of an angiogram in want to proceed with a nuclear stress test. This is been set for tomorrow. * Nuclear stress test tomorrow morning\ * Continue to monitor on telemetry * Troponins have been flat likely related to renal failure # nonsustained VT currently on metoprolol will follow on telemetry # chronic kidney disease, appreciate Nephrology consult. * Creatinine stable at baseline * Hold fluids for now given he will not have angiogram eminently. # the hypertension, off lisinopril and blood pressure remains normal to low. Reviewed echocardiogram and he has a normal EF without any wall motion abnormalities * Continue to hold lisinopril for now * He is on metoprolol for his NSVT # DVT prophylaxis can resume subcu heparin Subjective: Patient new to me and chart reviewed. He is comfortable without chest pain or shortness of breath although he continues to feel some palpitations. Discussed with Nephrology. Objective: Vital Signs Temp Pulse Resp BP Pulse Ox 36.8 C 77 18 97/55 L 93 06/14/17 11:36 06/14/17 11:36 06/14/17 11:36 06/14/17 11:36 06/14/17 11:36 Laboratory Results 06/14/17 03:12 06/14/17 03:12 06/13/17 06/14/17 06/15/17 05:59 05:59 05:59 Intake Total 1090 Output Total 550 Balance 540 PT 13.1 SEC (12.0-15.0) 06/14/17 03:12 INR 0.97 (0.83-1.16) 06/14/17 03:12 - Physical Exam Constitutional: no apparent distress, not in pain Eyes: PERRL, anicteric sclera, EOMI Ears, Nose, Mouth, Throat: moist mucous membranes Cardiovascular: regular rate and rhythym Respiratory: no respiratory distress, clear to auscultation Gastrointestinal: normoactive bowel sounds, soft, non-tender abdomen Genitourinary: no bladder fullness Skin: warm Neurologic: AAOx3 Psychiatric: interacting appropriately, not anxious ICD10 Worksheet Patient Problems: Problems Problem Status Onset Frequent PVCs Acute CHF (congestive heart failure) Acute Elevated troponin Acute
--- NOTE | 2017-06-14 13:37 | PDPROPOC ---
Sedation Plan of Care Sedation Plan of Care: vital signs stable, mental status noted, patient educated of risks, benefits, alternatives, patient can tolerate sedation ASA Classification: ASA 1 Planned drugs: fentanyl, midazolam Mallampati Score: Class 1 Mallampati Reference Image: Patient passed 3-3-2 rule?: Yes
--- NOTE | 2017-06-14 13:37 | PDHPUP ---
History & Physical Update H&P update statement: This history and physical update is based on an assessment of the patient which was completed after admission or registration (within 24 hours), but prior to the surgery/procedure. H&P update: H&P reviewed & patient examined, no change in patient's condition since H&P completed
[2017-06-14] MEDS ORDERED: ATORVASTATIN CALCIUM 40 MG TAB PO SCH (21:00)
[2017-06-15 03:33] VITALS: RESP 18
[2017-06-15] MEDS: HEPARIN 5,000 UNIT/0.5 ML SYR SC SCH ×2 (07:16→15:29)
[2017-06-15] MEDS: ASPIRIN 81 MG CHEWABLE TAB PO SCH (08:21)
[2017-06-15] MEDS: VENLAFAXINE HCL 75 MG TAB PO SCH (08:21)
[2017-06-15] MEDS: FINASTERIDE 5 MG TAB PO SCH (08:21)
[2017-06-15] MEDS: ALLOPURINOL 100 MG TAB PO SCH (08:23)
--- NOTE | 2017-06-15 08:39 | SOAPPROG ---
[facility] Progress Note Assessment/Plan: Assessment: 77-year-old male with cardiac risk factor profile that includes age/male gender and longstanding hypertension. He was admitted with palpitations related to PVCs and nonsustained VT. Troponins were noted to be elevated initially with a flat pattern. More recently his troponins have declined and nearly normalized. He did not present symptoms of chest pain, chest pressure or dyspnea. His initial complaints were that of palpitations. Identified arrhythmias include frequent multiform PVCs and short runs of nonsustained VT. At this point, his clinical presentation is really not consistent with the diagnosis of a non ST elevation myocardial infarction given the fact he did not have angina or an anginal equivalent. Additionally, there does not appear to be any clinical evidence of congestive heart failure. Plan: Today he will undergo stress myocardial perfusion imaging. His current medications will be continued. Further recommendations will be made following completion of that study. 06/15/17 08:37 Subjective: He feels well today. He has no complaints of chest discomfort, chest pain or pressure significant dyspnea. He slept well last night. There are plans for him to have a stress myocardial perfusion imaging study today. Objective: Vital Signs Temp Pulse Resp BP Pulse Ox 37.0 C 72 18 125/53 H 93 06/15/17 07:45 06/15/17 07:45 06/15/17 07:45 06/15/17 07:45 06/15/17 07:45 Laboratory Results 06/14/17 03:12 06/15/17 03:13 06/14/17 06/15/17 06/16/17 05:59 05:59 05:59 Intake Total 1090 700 Output Total 550 1025 Balance 540 -325 PT 13.1 SEC (12.0-15.0) 06/14/17 03:12 INR 0.97 (0.83-1.16) 06/14/17 03:12 Physical Exam - Physical Exam General Appearance: WD/WN, no apparent distress Neck: non-tender, full range of motion Respiratory: lungs clear, normal breath sounds Cardiac/Chest: regular rate, rhythm, No edema, No gallop, No JVD Peripheral Pulses: 2+: carotid (R), carotid (L) Abdomen: non-tender, soft Male Genitalia: deferred Rectal: deferred Neuro/Psych: alert, oriented x 3 ICD10 Worksheet Patient Problems: Problems Problem Status Onset CHF (congestive heart failure) Acute Elevated troponin Acute Frequent PVCs Acute
[2017-06-15] MEDS ORDERED: REGADENOSON 0.4 MG/5 ML SYR IVP ONE (09:23)
--- NOTE | 2017-06-15 10:35 | HOSPPROG ---
Hospitalist Progress Note Assessment/Plan: 77-year-old man with chronic renal failure followed at the [facility] is admitted with palpitations. He is found to have indeterminate troponins on admission and multiple PVCs. He was noted to have nonsustained VT on telemetry while here. # elevated troponins, flat and in the indeterminate range. Reviewed Cardiology consult at this time they feel the risk outweighs the benefit of an angiogram in want to proceed with a nuclear stress test. * Stress test today. If positive will need to go on to angiogram, if negative will DC * Continue to monitor on telemetry * Troponins have been flat likely related to renal failure # nonsustained VT currently on metoprolol will follow on telemetry # chronic kidney disease, appreciate Nephrology consult. * Creatinine stable at baseline * Hold fluids for now given he will not have angiogram eminently. # the hypertension, off lisinopril and blood pressure remains normal to low. Reviewed echocardiogram and he has a normal EF without any wall motion abnormalities * Continue to hold lisinopril for now * He is on metoprolol for his NSVT # DVT prophylaxis can resume subcu heparin Subjective: No chest pain or shortness of breath. Patient was admitted primarily with palpitation. Discussed with Dr. Au Objective: Vital Signs Temp Pulse Resp BP Pulse Ox 37.0 C 72 18 125/53 H 93 06/15/17 07:45 06/15/17 07:45 06/15/17 07:45 06/15/17 07:45 06/15/17 07:45 Laboratory Results 06/14/17 03:12 06/15/17 03:13 06/14/17 06/15/17 06/16/17 05:59 05:59 05:59 Intake Total 1090 700 Output Total 550 1025 400 Balance 540 -325 -400 PT 13.1 SEC (12.0-15.0) 06/14/17 03:12 INR 0.97 (0.83-1.16) 06/14/17 03:12 - Physical Exam Constitutional: no apparent distress Eyes: PERRL Ears, Nose, Mouth, Throat: moist mucous membranes Cardiovascular: regular rate and rhythym Respiratory: no respiratory distress, clear to auscultation Gastrointestinal: normoactive bowel sounds Genitourinary: no bladder fullness Skin: warm, normal color Musculoskeletal: full muscle strength Neurologic: AAOx3 Psychiatric: interacting appropriately ICD10 Worksheet Patient Problems: Problems Problem Status Onset Frequent PVCs Acute CHF (congestive heart failure) Acute Elevated troponin Acute
--- NOTE | 2017-06-15 11:24 | SOAPPROG ---
SO[facility] Progress Note Assessment/Plan: Assessment: The patient is a 77 y/o F with a known h/o CKD who presented with NSVT and elevated troponin. CKD 4: - baseline Cr reportedly 2.5, 2.1 today - NO needs for HD at this time - Pt currently has a risk of SAMANTHA of about 14% and risk of injury requiring dialysis is around 0.12%, meaning would proceed with heart cath if necessary given high risk patient - borderline hyperkalemia, on BPH meds - Fluids held and will monitor BP, can bolus if needed HTN: -BP's improved last night and today, now 130's systolic -await stress test results -continue to hold lisinopril -am cortisol borderline at 5.9?, blood cultures pending, TSH WNL, echo from 06/11 noted NSVT: -may have caused trop elevation -cardiology work-up appreciated -may need diuresis in the setting of diastolic HF -keep Mg>2, K>4 BMD: -phos improved to <5.5 -vitamin D, PTH as outpt 06/15/17 12:09 Subjective: Feeling better today. BP's improved overnight. Stress test complete, results pending. Objective: Vital Signs Temp Pulse Resp BP Pulse Ox 37.0 C 72 18 125/53 H 93 06/15/17 07:45 06/15/17 07:45 06/15/17 07:45 06/15/17 07:45 06/15/17 07:45 Laboratory Results 06/14/17 03:12 06/15/17 03:13 06/14/17 06/15/17 06/16/17 05:59 05:59 05:59 Intake Total 1090 700 Output Total 550 1025 400 Balance 540 -325 -400 PT 13.1 SEC (12.0-15.0) 06/14/17 03:12 INR 0.97 (0.83-1.16) 06/14/17 03:12 Physical Exam - Physical Exam General Appearance: WD/WN, alert, no apparent distress EENT: PERRL/EOMI, TMs normal Neck: non-tender, full range of motion, supple Respiratory: chest non-tender, lungs clear, normal breath sounds Cardiac/Chest: normal peripheral pulses, regular rate, rhythm Abdomen: normal bowel sounds, non-tender, soft Skin: normal color, warm/dry Extremities: normal range of motion, non-tender Neuro/Psych: alert, normal mood/affect, oriented x 3 ICD10 Worksheet Patient Problems: Problems Problem Status Onset CHF (congestive heart failure) Acute Elevated troponin Acute Frequent PVCs Acute
[2017-06-15 11:28] VITALS: PULSE 82; TEMP 98.2; O2SAT 95
[2017-06-15] MEDS: METOPROLOL TARTRATE 25 MG TAB PO SCH (11:51)
[2017-06-15 16:01] VITALS: BP 127/79
--- NOTE | 2017-06-15 16:46 | ASMTCMCOM ---
CM Note CM Note Notes: Reviewed patient's chart, discussed with RN. No needs identified at this time, no therapy ordered. Patient will discharge home independently. CM available for any changes. Date Signed: 06/15/2017 04:46 PM Electronically Signed By:Veronica Nelson RN
--- NOTE | 2017-06-15 17:17 | GDS ---
[f rep st] DISCHARGE SUMMARY DIAGNOSES: 1. Chest pain with elevated troponins. 2. Nonsustained ventricular tachycardia on metoprolol. No recurrence on telemetry. 3. Chronic kidney disease. 4. Hypertension. CONSULTATIONS: Nephrology, cardiology. PROCEDURES DONE: 1. Nuclear stress test, negative for ischemia. Fixed defects noted. 2. Echocardiogram, LV 56%. Regional wall motion abnormality. HOSPITAL COURSE: The patient came in with palpitations. He was admitted to the hospital and placed on telemetry. Metoprolol was added for presumed nonsustained VT and he has improved. He was evaluat ed for ischemia with a nuclear stress test which showed fixed defects but no reversible ischemia. Ne phrology was involved in case he needed an angiogram. His kidney function remained stable and they e lected to hold his lisinopril for now. They can resume this as an outpatient. I will defer that to them. His blood pressure has been well controlled. CONDITION ON DISCHARGE: Stable. DISCHARGE MEDICATIONS: Please see discharge medication form. He was started on atorvastatin 40 mg d , metoprolol 50 mg twice daily and aspirin daily for presumed coronary artery disease, although n o reversible ischemia noted. His lisinopril has been discontinued. 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 At this time, I will keep it on hold. He also will follow up with Dr. Francois Au as an outpatient for ongoing treatment and evaluation of hi s palpitations. Total time spent patient on day of discharge in coordination of care is 35 minutes. Copy requested to: [facility]: Nephrology Dept /[id number]/MODL
[2017-06-15] MEDS ORDERED: METOPROLOL TARTRATE 25 MG TAB PO SCH (21:00)
== END 2017-06-15 17:57 | disposition home or self-care (01) | DRG 309 ==
LOC: CED 15:39 → CEDHOLD 17:12 → F2W 18:50
PROVIDERS: ADMIT Hospitalist; ATTEND Hospitalist
DX: I47.2 Ventricular tachycardia (principal); N18.4 Chronic kidney disease, stage 4 (severe); I12.9 Hypertensive chronic kidney disease with stage 1 through stage 4 chronic kidney disease, or unspecified chronic kidney disease; Z87.891 Personal history of nicotine dependence
CPT/HCPCS: 71046-PO; 82947-QW; 83880-PO; 84443-PO; 84484-PO; 85025-PO; A9500; J1644; J1940; J2785

== ENCOUNTER → 2017-06-17 | Outpatient (CLI) | payer OTHER | LOC: EDSTATUS 08:33 → CIMAGING 15:47 | PROVIDERS: ATTEND Family Medicine | DX: J98.4 Other disorders of lung (principal); K59.00 Constipation, unspecified; N28.9 Disorder of kidney and ureter, unspecified | CPT/HCPCS: 36415-PO; 74022-PO; 80053-PO; 85025-PO ==

== ENCOUNTER → 2017-10-11 | Outpatient (CLI) | payer OTHER | LOC: CIMAGING 12:24 | PROVIDERS: ATTEND Family Medicine | DX: R91.8 Other nonspecific abnormal finding of lung field (principal); R06.02 Shortness of breath; R79.81 Abnormal blood-gas level | CPT/HCPCS: 36415-PO; 71046-PO ==

== ENCOUNTER → 2017-10-30 | Outpatient (CLI) | payer OTHER | LOC: FIMAGING 10:03 | PROVIDERS: ATTEND Family Medicine | DX: J43.9 Emphysema, unspecified (principal); R91.8 Other nonspecific abnormal finding of lung field; J90 Pleural effusion, not elsewhere classified; I25.10 Atherosclerotic heart disease of native coronary artery without angina pectoris; Z87.891 Personal history of nicotine dependence ==

== ENCOUNTER → 2017-11-19 | Outpatient (CLI) | payer OTHER | LOC: CIMAGING 08:52 | PROVIDERS: ATTEND Family Medicine | DX: J90 Pleural effusion, not elsewhere classified (principal); R16.0 Hepatomegaly, not elsewhere classified; N28.9 Disorder of kidney and ureter, unspecified; K76.89 Other specified diseases of liver; I25.10 Atherosclerotic heart disease of native coronary artery without angina pectoris | CPT/HCPCS: 76705-PO ==

== ENCOUNTER 2017-11-24 11:13 | Inpatient (IN) | payer OTHER ==
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
[2017-11-24 12:34] LABS: PLATELET COUNT 312 10^3/uL (150-400)
[2017-11-24 12:46] LABS: INR 1.13 (0.83-1.16); PROTIME(PATIENT) 14.7 SEC (12.0-15.0)
[2017-11-24] MEDS ORDERED: FUROSEMIDE 100 MG/10 ML VIAL IVP ONE (13:31)
[2017-11-24] MEDS ORDERED: CARVEDILOL 3.125 MG TAB PO ONE (16:07)
[2017-11-24] MEDS ORDERED: ONDANSETRON DISINTEGRATING 4 MG TAB PO PRN (16:21)
--- NOTE | 2017-11-24 16:54 | ECHO ---
[email or web address] [address] [address] Main: [phone] Fax: [email or web address] Echocardiogram Name: MELANIE COLLADO MR#: [id number] Study Date: 11/24/2017 Study Time: 03:47 PM Date of : 1940 Age: 77 year(s) Height: 180.3 cm (71 in.) Weight: 96.62 kg (213 lb.) BSA: 2.17 m2 Gender: Male Examination: Echo Indication: CHF Image Quality: Adequate Contrast: Requested by: Tony Fitzgerald BP: / Heart Rate: Rhythm: Indication: CHF Procedure Staff Supervisor [place]: Emerita Edwards [facility] Reading Physician: Jim Torres MD Requesting Provider: Conclusions: Left ventricle upper limits of normal. Mild concentric LV hypertrophy. The ejection fraction is visually estimated to be 15 %. Mildly dilated right ventricle. Mildly reduced RV function. The left atrium is mildly dilated. Moderate to severe mitral regurgitation. There is posterior mitral anular calcification. There is a small mobile echodensity on the posterior mitral anulus.. The aortic valve is tri-leaflet. Aortic sclerosis is present. Mild aortic valve regurgitation is present. No aortic valve stenosis is present. Right ventricular systolic pressure measures 49mmHg. When compared to the 06/20 study. The LVEF has decreased from 56 to 25%. The mitral regurgitation has increased from mild to moderate/severe. The mobile echodensity on the posterior mitral anulus is unchanged. Measurements: Chambers Valvular Assessment AV/MV Valvular Assessment TV/PV Normal Normal Normal Name Value Range Name Value Range Name Value Range Ao Meli (2D): 3.2 cm (1.4 cm-2.6 AV Vmax: 0.98 m/s (1 m/s-1.7 TR Vmax: 3.32 mm/s ( - ) cm) m/s) TR PGmax: 44 mmHg ( - ) IVSd (2D): 1.2 cm (0.6 cm-1.1 AV maxP mmHg ( - ) syst. PAP: 49 mmHg ( - ) cm) AV meanP mmHg ( - ) PV Vmax: 0.69 m/s (0.6 m/s-0.9 LVDd (2D): 4.6 cm (4.2 cm-5.9 SOPHIA (VTI): 2.5 cm ( - ) m/s) cm) MV E Vmax: 1.07 m/s ( - ) PV PGmax: 2 mmHg ( - ) LVDs (2D): 4.2 cm (2.1 cm-4 MV PHT: 0.034 s ( - ) cm) MVA (PHT): 6.5 s ( - ) Patient: MELANIE COLLADO Study Date: 11/24/2017 Page 1 of 3 03:47 PM LVPWd (2D): 1.3 cm (0.6 cm-1 cm) LVOTd 2.0 cm 2.0 cm mm LVEF (BP): 27 % (>=55 %) Visual EF: 15 % RVDd(2D): 4.0 cm (1.9 cm-3.8 cmmm) Continued Measurements: Chambers Valvular Assessment AV/MV Valvular Assessment TV/PV Name Value Name Value Name Value LADs: 4.1 cm MV DecTime: 113 m/s CVP (est.): 5 mmHg LADs Lon.4 cm MR ERO: 0.430 cm2 LA Area: 27.3 cm2 MR PISA radius: 10 mm LA Volume: 84 ml MR Reg. Volume: 69 ml LA Volume Index: 38.7 ml/m2 RA Area: 24.4 cm2 Additional Vessels Name Value Ao Ascendin.4 cm Inferior Vena Cava: 2.3 cm Findings: Left Ventricle: Left ventricle upper limits of normal. Mild concentric LV hypertrophy. The ejection fraction is visually estimated to be 15 %. Unable to assess diastolic dysfunction. There is significantly reduced LV function. Right Ventricle: Mildly dilated right ventricle. Mildly reduced RV function. The right heart function appears reduced. Left Atrium: The left atrium is mildly dilated. Right Atrium: The right atrium is normal in size. Mitral Valve: Moderate to severe mitral regurgitation. There is posterior mitral anular calcification. There is a small mobile echodensity on the posterior mitral anulus.. Aortic Valve: The aortic valve is tri-leaflet. Aortic sclerosis is present. Mild aortic valve regurgitation is present. No aortic valve stenosis is present. Tricuspid Valve: The tricuspid valve is normal in appearance and function. The pulmonary artery pressure is moderately increased. Right ventricular systolic pressure measures 49mmHg. There appears to be severe tricuspid regurgitation. Pulmonic Valve: The pulmonic valve is normal in appearance and function. Mild pulmonic valve regurgitation is noted. Aorta: The aorta is normal. Normal size aortic root measuring 3.2 cm. Normal size ascending aorta measuring 3.4 cm. IVC: The IVC is mildly dilated. Pericardium: No pericardial effusion. There is a pleural effusion present. (No Signature Object) Patient: MELANIE COLLADO Study Date: 11/24/2017 Page 2 of 3 03:47 PM Patient: MELANIE COLLADO Study Date: 11/24/2017 Page 3 of 3 03:47 PM [id number]
--- NOTE | 2017-11-24 17:15 | GHP ---
[f rep st] HISTORY AND PHYSICAL DATE OF ADMISSION: 11/24/2017 CHIEF COMPLAINT: Short of breath. HISTORY OF PRESENT ILLNESS: This is a 77-year-old man who presents with worsening shortness of breat h. He was seen by his PCP yesterday. He found him to be hypoxic and recommended admission to the [facility], however, he refused. His shortness of breath continued and thus he presented to the ED today . He notably has no chest pain. No dizziness. His shortness of breath is worse when he is lying fl at. He has been lying on his left side for about the last month. Also worse with any exertion. Thi s has been slowly worsening over about the last month, associated with increasing abdominal girth ove r the last month, and some lower extremity edema over the last few days. He had an admission in [facility] for similar. At that time, he had a negative MPI, as well as an echocardiogram that showed an ejec tion fraction of 50%. He had presumed NSVT on that admission and was started on metoprolol. He felt as though the metoprolol was making him worse, and stopped it a few months ago. This was without di scussing with a physician. PAST MEDICAL/SURGICAL HISTORY: 1. Hypertension. 2. Chronic kidney disease. Baseline creatinine in the low 2s, followed by Dr. Wisdom. 3. History of NSVT as above. 4. Orthopedic surgery. 5. Tobacco use. MEDICATIONS: Please see medication reconciliation. ALLERGIES: Erythromycin and all statins. FAMILY HISTORY: Reviewed and noncontributory. SOCIAL HISTORY: Does not drink, and has quit smoking at this point. REVIEW OF SYSTEMS: A 10-point review of systems is conducted and is negative except per HPI. PHYSICAL EXAM: VITAL SIGNS: Blood pressure 119/86, heart rate 113, respiration rate 20, saturating 96% on 2 L. Temperature is 36.6. GENERAL: Mr. Hess is a pleasant man, lying on his right side, c omfortable, in no acute distress. HEENT: Normocephalic, atraumatic. CARDIOVASCULAR: Tachycardic. Regular rate and rhythm. He has no murmurs, rubs or gallops. PMI is nondisplaced. He has JVD elev ated to the angle of his jaw. He has increased abdominal girth consistent with ascites, as well as 1 + bilateral lower extremity edema. PULMONARY: Breathing comfortably. He has diminished breath soun ds bilateral bases. ABDOMEN: Abdominal exam as above with no tenderness. SKIN: No rash. : No Neumann. NEUROLOGIC: Alert and oriented x3. He is moving all extremities. PSYCHIATRIC: Normal mood and affect. LABS: White count is 9.6, hemoglobin 12.9, platelets are 312. INR is 1.13. Creatinine is 2.3. BNP is 21,000. Point of care troponin 0.08. DATA: 1. Discussed with Dr. Baumann. Will admit to PCU. 2. I personally reviewed and interpreted his chest x-ray. This shows normal-sized heart. He has a right base pleural effusion. He has cephalization of his venous vasculature. 3. EKG, which I also personally reviewed and interpreted, shows sinus tachycardia. He has [address] segments are normal. He has mild T-wave inversions in leads V4 through V6, as well as inferolater al leads. IMPRESSION AND PLAN: 1. Acute congestive heart failure: It is unclear if this is systolic or diastolic. I note that he is tachycardic today. Echocardiogram has been ordered. Awaiting review of this. He received 80 mg of Lasix in the emergency department. Cardiology has been consulted. At this point, we will await h is echocardiogram, follow his kidney function tomorrow morning. He will likely need a few days of in travenous diuresis. 2. Chronic kidney disease: This will need to be followed closely as an inpatient. Nephrology has darline garcia consulted. 3. History of supraventricular tachycardia: He has been placed on Coreg per Cardiology. I agree wi th this. We will follow him on telemetry for now. 4. Tachycardia: This appears to be sinus. May be driven by his shortness of breath and worsening r espiratory status. Pulmonary embolism is possible, though not a good explanation for the findings on his chest x-ray, as well as ascites and lower extremity edema. CT angio is not possible given his c reatinine. We will follow his tachycardia with treatment of his volume overload and consider additio nal workup. If there is no clear infectious cause, I think his chest x-ray is much more likely steri le fluid as opposed to pneumonia. 5. Code status: He would like to be full code. 6. Venous thromboembolism risk: This is high. I will place him on subcutaneous heparin. /[id number]/MODL
[2017-11-24] MEDS: CARVEDILOL 6.25 MG TAB PO SCH (17:32)
[2017-11-24] MEDS: HEPARIN 5,000 UNIT/0.5 ML INJ SC SCH (20:50)
[2017-11-25] MEDS: HEPARIN 5,000 UNIT/0.5 ML INJ SC SCH ×3 (05:18→22:39)
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
[2017-11-25] MEDS: CARVEDILOL 6.25 MG TAB PO SCH ×2 (08:56→22:39)
[2017-11-25] MEDS: VENLAFAXINE HCL 75 MG TAB PO SCH (08:57)
[2017-11-25] MEDS: ALLOPURINOL 100 MG TAB PO SCH (08:57)
[2017-11-25] MEDS: PANTOPRAZOLE SODIUM 40 MG TAB PO SCH (08:58)
[2017-11-25] MEDS: ASPIRIN EC 81 MG TAB PO SCH ×2 (08:59→13:58)
[2017-11-25] MEDS: FINASTERIDE 5 MG TAB PO SCH (08:59)
--- NOTE | 2017-11-25 08:59 | ASMTLACE ---
DOUGLAS Acuity / Level of Answers: Yes Care: Did the patient have an inpatient admission? Comorbidities - select Answers: Congestive heart failure all that apply Moderate or severe liver or renal disease Opioid dependence / Chronic pain Other Notes: HTN; TBI # of Emergency department Answers: 1-2 visits in the last 6 months Social determinants Answers: Mental health diagnosis (anxiety, depression, pers onality disorders, etc.) Score: 18 Date Signed: 11/25/2017 08:59 AM Electronically Signed By:Nery Buckley
[2017-11-25] MEDS: CALCITRIOL 0.25 MCG CAP PO SCH (09:00)
--- NOTE | 2017-11-25 09:37 | PDCARPN ---
Cardiology Progress Note Chief Complaint: SCHF Assessment/Plan: Assessment: 77-y/o M PMH CKD baseline Cr 2-2.5, htn, PVCs, now admitted with increased shortness of breath, new SCHF, peripheral edema, hypoxia. #. SCHF: as evidenced by increased NpBNP, pleural effusion, pulmonary vascular congestion, edema, and new decrement in EF EF on echo in June 56% now estimated to be 15% RV dysfunction and RVSP 49 mmHg agree with Coreg hold Lisinopril due to renal function (pending further evaluation from renal) #. mod-severe MR with mobile echodensity on posterior mitral annulus: BC pending new worsening likely related to decrement in EF will need to be monitored #. CAD: presumed based on previous MPI with inferior infarct in June due to lack of symptoms in June, LHC was not pursued reviewed Dr. Flavio Carter's note regarding risk fo SAMANTHA and need for HD if LHC pursued likely should revisit LHC due to profound drop in EF/ will d/w renal OK to have ASA as CrCl is 30 #. PVCs: h/o NSVT continue Coreg (started in this admission) #. CKD: at baseline in regards to Cr #. hypoxic respiratory failure: on 2 lpm currently Pt new to me. Chart reviewed and summarized. Plan: 11/25/17 09:37 11/25/17 10:09 Subjective: Reports ongoing edema but dyspnea is improving. Reviewed/Discussed With: hospitalist (Dr. Escamilla) Objective: Vital Signs (8 Hrs) Temp Pulse Resp BP Pulse Ox 11/25/17 07:04 97.7 F 104 H 18 109/83 H 97 11/25/17 04:45 97.3 F 105 H 16 101/75 97 Intake/Output (24 Hrs) 11/24/17 11/25/17 11/26/17 05:59 05:59 05:59 Intake Total 500 280 Output Total 1600 Balance -1100 280 Intake: Oral (ml) 500 280 Output: Urine (ml) 1600 Toilet 1250 Urinal 350 Other: Weight 92.787 kg Intake Quantity Yes Sufficient Number of Voids 3 Toilet 1 Urinal 1 Result Diagrams: 11/24/17 12:25 11/25/17 03:44 Cardiac Labs: Cardiac Lab Results (72 Hrs) 11/25/17 11/24/17 11/24/17 03:44 23:25 18:45 Troponin I 0.125 H 0.129 H 0.130 H Laboratory Tests 11/24/17 12:25 NT-Pro-B Natriuret Pep 00654 H EKG: personally interpreted ST 115, SHRUTHI, frequent monomorphic PVCs, diffuse ST-T w abn Telemetry: reviewed Echocardiogram: reviewed and summarized - Physical Exam Constitutional: no apparent distress Eyes: anicteric sclera Ears, Nose, Mouth, Throat: moist mucous membranes, other ([place]) Cardiovascular: regular rate and rhythm, No systolic murmur Respiratory: no crackles, no wheezes, reduced air movement Gastrointestinal: normoactive bowel sounds, ascites Genitourinary: No cooley in urethra Neurologic: AAOx3 Psychiatric: cooperative, interactive ICD10 Worksheet Patient Problems: Problems Problem Status Onset CHF (congestive heart failure) Acute Cardiomegaly Acute Pleural effusion Acute Renal insufficiency Acute Shortness of breath Acute Elevated troponin Acute Frequent PVCs Acute
[2017-11-25] MEDS ORDERED: FUROSEMIDE 40 MG/4 ML VIAL IVP SCH (10:15)
[2017-11-25] MEDS ORDERED: *PHM DO NOT USE-FUROSEMIDE 1MG/ML IV PED/NEWBORN SYR IV SCH (10:15)
--- NOTE | 2017-11-25 11:28 | HOSPPROG ---
Hospitalist Progress Note Assessment/Plan: Acute systolic heart failure - EF 15%, down from 50%. Down 4 kg? since yesterday, not sure if initial weight was accurate. Still with LE and abdominal edema. -cont diuresis with Lasix 40 IV BID -monitor I&O's, daily weights -warrants ischemic eval, cards consulting -cont ASA, BB, Ronak deferred with elevated Cr AHRF - 2 LPM. 2/2 above, diuresis, wean O2 as able Moderate - severe MR - mild MR seen in 06/2017, rapid progression thought 2/2 low EF -follow Elevated trop - suspect strain in setting of acute HF. No chest pain. -likely needs further ischemic eval with angiogram CKD - Baseline Cr ~2.3 -renal to consult regarding indication for heart cath and risk of contrast induced nephropathy NSVT - cont coreg Hypertension - normotensive with coreg, lisinopril held due to elevated Cr Full code DVT PPLX - VITALIY Dispo - cont inpt Subjective: Pt doing ok, notes decreased swelling in abdomen with good uop overnight. Denies CP or SOB. Still with significant LE edema. No fevers/ chills or cough. Eating well, ambulatory. Objective: Vital Signs Temp Pulse Resp BP Pulse Ox 36.5 C 104 H 18 109/83 H 97 11/25/17 07:04 11/25/17 07:04 11/25/17 07:04 11/25/17 07:04 11/25/17 07:04 Laboratory Results 11/25/17 03:44 11/24/17 11/25/17 11/26/17 05:59 05:59 05:59 Intake Total 500 280 Output Total 1600 Balance -1100 280 PT 14.7 SEC (12.0-15.0) 11/24/17 12:25 INR 1.13 (0.83-1.16) 11/24/17 12:25 - Physical Exam Constitutional: no apparent distress Eyes: PERRL Ears, Nose, Mouth, Throat: moist mucous membranes Cardiovascular: regular rate and rhythym Respiratory: no respiratory distress, inspiratory crackles Gastrointestinal: normoactive bowel sounds, soft, non-tender abdomen Skin: warm Musculoskeletal: other (2+ b/l LE pitting edema) Neurologic: AAOx3 Psychiatric: interacting appropriately ICD10 Worksheet Patient Problems: Problems Problem Status Onset CHF (congestive heart failure) Acute Cardiomegaly Acute Pleural effusion Acute Renal insufficiency Acute Shortness of breath Acute Elevated troponin Acute Frequent PVCs Acute
--- NOTE | 2017-11-25 12:08 | PDMN ---
Medical Necessity Medical necessity: Pt meets IP criteria per MD & MCG M-190; est los >2 mn for eval/tx of acute CHF w/tachycardia & worsening shortness of breath; requiring further monitoring/workup, Cardiology consult & IV diuresis; comorbid CKD, SVT; per H&P & order 11/24/17
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
[2017-11-25] MEDS: FUROSEMIDE 40 MG/4 ML VIAL IVP SCH (15:59)
--- NOTE | 2017-11-25 16:17 | ASMTCMCOM ---
CM Note CM Note Notes: 11/25/2017 Case Management Note Met w/pt during rounds. Pt admitted for CHF exacerbation with chronic renal insufficiency. Reviewed chart. Pt lives with a room mate in a condo. Pt brother Asad can be reached at [phone]. Transitional Care RN to follow at d/c. PT OT evals are pending. Case Management d/c poc: to be determined. Case Management to follow. Date Signed: 11/25/2017 04:16 PM Electronically Signed By:Meghan Barber RN
[2017-11-26] MEDS: HEPARIN 5,000 UNIT/0.5 ML INJ SC SCH ×3 (05:56→21:31)
[2017-11-26] MEDS: CARVEDILOL 6.25 MG TAB PO SCH ×2 (08:22→18:09)
[2017-11-26] MEDS: ALLOPURINOL 100 MG TAB PO SCH (08:48)
[2017-11-26] MEDS: FINASTERIDE 5 MG TAB PO SCH (08:49)
[2017-11-26] MEDS: VENLAFAXINE HCL 75 MG TAB PO SCH (08:49)
[2017-11-26] MEDS: CALCITRIOL 0.25 MCG CAP PO SCH (08:49)
[2017-11-26] MEDS: ASPIRIN EC 81 MG TAB PO SCH (08:49)
[2017-11-26] MEDS: PANTOPRAZOLE SODIUM 40 MG TAB PO SCH (08:49)
--- NOTE | 2017-11-26 11:33 | HOSPPROG ---
Hospitalist Progress Note Assessment/Plan: Acute systolic heart failure - EF 15%, down from 50%. Diuresing net neg. Still with LE and abdominal edema. -cont diuresis with Lasix 40 IV BID -monitor I&O's, daily weights -warrants ischemic eval, angiogram in am, NPO at midnight -cont ASA, BB, Ronak deferred with elevated Cr AHRF - 2 LPM. 2/2 above, diuresis, wean O2 as able Moderate - severe MR - mild MR seen in 06/2017, rapid progression thought 2/2 low EF -cards following Elevated trop - suspect strain in setting of acute HF. No chest pain. -further ischemic eval as above CKD - Suspect cardiorenal. Baseline Cr ~2.3, appreciate renal consult -ronak held -hold diuretic prior to cath -avoid nephrotoxic agents NSVT - cont coreg Hypertension - normotensive with coreg, lisinopril held due to elevated Cr Full code DVT PPLX - VITALIY Dispo - cont inpt, PT/OT evals, outpt palliative care Subjective: Pt doing ok this am, complains he is hungry, NPO. No CP or SOB. Uneventful night. Objective: Vital Signs Temp Pulse Resp BP Pulse Ox 36.5 C 100 18 107/76 97 11/26/17 08:13 11/26/17 08:13 11/26/17 08:13 11/26/17 08:13 11/26/17 08:13 Laboratory Results 11/25/17 03:44 11/25/17 11/26/17 11/27/17 05:59 05:59 05:59 Intake Total 500 1030 Output Total 1600 1925 Balance -1100 -895 PT 14.7 SEC (12.0-15.0) 11/24/17 12:25 INR 1.13 (0.83-1.16) 11/24/17 12:25 - Physical Exam Constitutional: no apparent distress Eyes: PERRL Ears, Nose, Mouth, Throat: moist mucous membranes Cardiovascular: regular rate and rhythym Respiratory: no respiratory distress, inspiratory crackles Gastrointestinal: normoactive bowel sounds, soft, non-tender abdomen, distension Skin: warm Musculoskeletal: full muscle strength, other (b/l LE edema) Neurologic: AAOx3 Psychiatric: interacting appropriately ICD10 Worksheet Patient Problems: Problems Problem Status Onset chronic disease mgmt/transitional care Acute Frequent PVCs Acute CHF (congestive heart failure) Acute Elevated troponin Acute Pleural effusion Acute Cardiomegaly Acute Shortness of breath Acute Renal insufficiency Acute
--- NOTE | 2017-11-26 12:26 | SOAPPROG ---
SOAP Progress Note Assessment/Plan: Assessment: 77 y/o M with h/o HTN, HLD, CKD IV who presented with volume overload and found to have an EF of 15%. # CKD IV -Cr baseline 2.0-2.3, currently 2.5mg/dL -etiology likely cardiorenal, HTN and nicotine abuse, previously bland urine in 06/20 -will send new UA -Holding Lisinopril for now -continue to monitor urine output -avoid NSAIDs and renally dose meds for eGFR<30ml/min # HTN/vol -Continue lasix 40mg IV BID -BP's low, keep MAP>65 -cardiology help appreciated -goal weight loss 1-2lbs per day or net negative 1-2L -low sodium diet<2g recommended # CM with EF 15% -unclear etiology -cath delayed today, planned for tomorrow -risk of SAMANTHA approximately 26% with low risk for dialysis -recommend holding lasix prior to procedure -may need sleep study as outpt as well given R-sided heart findings -Holding Lisinopril for now to help optimize renal function and reduce risk of SAMANTHA, eventually will need to resume for HFrEF # BMD -on calcitriol, continue -monitor phos Plan: 11/26/17 12:23 Subjective: Feels OK, denies SOB with O2 support. Notes improved LE edema. Objective: Vital Signs Temp Pulse Resp BP Pulse Ox 36.5 C 100 18 107/76 97 11/26/17 08:13 11/26/17 08:13 11/26/17 08:13 11/26/17 08:13 11/26/17 08:13 Laboratory Results 11/25/17 03:44 11/25/17 11/26/17 11/27/17 05:59 05:59 05:59 Intake Total 500 1030 Output Total 1600 1925 Balance -1100 -895 PT 14.7 SEC (12.0-15.0) 11/24/17 12:25 INR 1.13 (0.83-1.16) 11/24/17 12:25 Physical Exam - Physical Exam General Appearance: WD/WN, alert, no apparent distress Respiratory: lungs clear, normal breath sounds Cardiac/Chest: regular rate, rhythm Abdomen: non-tender, soft Extremities: non-tender, swelling (2+ b/l LE) ICD10 Worksheet Patient Problems: Problems Problem Status Onset CHF (congestive heart failure) Acute Cardiomegaly Acute Pleural effusion Acute Renal insufficiency Acute Shortness of breath Acute Elevated troponin Acute Frequent PVCs Acute chronic disease mgmt/transitional care Acute
--- NOTE | 2017-11-26 12:32 | ASMTCMCOM ---
CM Note CM Note Notes: Pt admitted for CHF exacerbation with chronic renal insufficiency. Pt lives with a room mate in a condo. Pt brother Asad can be reached at [phone]. Introduced patient to concept of palliative care and explained that hydraulic spinner would be by in next few days to discuss it further with him. Pt given handouts regarding Palliative care. Transitional Care RN to follow at d/c. PT OT evals are pending. Case Management d/c poc: to be determined. Case Management to follow. Date Signed: 11/26/2017 12:32 PM Electronically Signed By:Cara Tamayo
[2017-11-26] MEDS: FUROSEMIDE 40 MG/4 ML VIAL IVP SCH (15:00)
--- NOTE | 2017-11-26 17:18 | ASMTCMCOM ---
CM Note CM Note Notes: 11/26/2017 Case Management note Discussed palliative care. Pt requested referral to [facility]. Faxed via all scripts. Discussed w/Jessica. Diego to visit with pt prior to discharge. Date Signed: 11/26/2017 05:17 PM Electronically Signed By:Meghan Barber RN
--- NOTE | 2017-11-26 18:14 | PDCARPN ---
Cardiology Progress Note Assessment/Plan: Assessment: H CKD baseline Cr 2-2.5, htn, PVCs, now admitted with increased shortness of breath, new SCHF, peripheral edema, hypoxia. 1. Sys-CHF: Elevated NpBNP, pleural effusion, pulmonary vascular congestion, edema, decline in EF EF on echo in June 56% now estimated to be 15% RVSP 49 mmHg continue on Coreg Lisinopril on hold due to renal function 2. Mod-severe MR w/ mobile echodensity on posterior mitral annulus--BC pending MR worse likely related to decline in EF 3. CAD: presumed based on previous MPI with inferior infarct in June few symptoms in June, LHC was not pursued plan for LHC due to profound drop in EF - 4. PVCs: with history of NSVT continue Coreg 5. CKD: at baseline in regards to Cr (2.0 to 2.3) Today Cr 2.5. 6. hypoxic respiratory failure: on 2 L New patient to me. Chart reviewed. Plan: Cath not done today due to conflict with flue dust laborer. Rescheduled for tomorrow. 11/26/17 18:00 Subjective: Do not want cath after noon. I feel good today. Reviewed/Discussed With: hospitalist, multidisciplinary team Time Spent with Patient: greater than 25 minutes Time Spent with Patient: Greater than 25 minutes spent on this patients care, greater than 50% of time spent counseling, educating, and coordinating care regarding the above mentioned plan. Objective: Vital Signs (8 Hrs) Temp Pulse Resp BP Pulse Ox 11/26/17 15:32 36.6 C 100 20 97/71 L 98 11/26/17 12:39 108 H 18 106/79 97 Intake/Output (24 Hrs) 11/25/17 11/26/17 11/27/17 05:59 05:59 05:59 Intake Total 500 1030 Output Total 1600 1925 350 Balance -1100 -895 -350 Intake: Oral (ml) 500 1030 Output: Urine (ml) 1600 1925 350 Toilet 1250 Urinal 350 1925 350 Other: Weight 92.787 kg 92.034 kg Intake Quantity Yes Sufficient Output Comment Toilet pt took hat out of toilet Number of Voids 3 Toilet 1 1 Urinal 1 1 1 Result Diagrams: 11/24/17 12:25 11/25/17 03:44 Cardiac Labs: Cardiac Lab Results (72 Hrs) 11/25/17 11/24/17 11/24/17 03:44 23:25 18:45 Troponin I 0.125 H 0.129 H 0.130 H - Physical Exam Cardiovascular: regular rate and rhythm, no murmurs, no rubs, no gallops Respiratory: no crackles, no wheezes, reduced air movement Gastrointestinal: ascites Skin: warm Neurologic: AAOx3 Psychiatric: cooperative, interactive ICD10 Worksheet Patient Problems: Problems Problem Status Onset chronic disease mgmt/transitional care Acute Frequent PVCs Acute CHF (congestive heart failure) Acute Elevated troponin Acute Pleural effusion Acute Cardiomegaly Acute Shortness of breath Acute Renal insufficiency Acute
[2017-11-27] MEDS: HEPARIN 5,000 UNIT/0.5 ML INJ SC SCH ×3 (05:14→22:49)
[2017-11-27] MEDS: FINASTERIDE 5 MG TAB PO SCH (08:02)
[2017-11-27] MEDS: VENLAFAXINE HCL 75 MG TAB PO SCH (08:02)
[2017-11-27] MEDS: ALLOPURINOL 100 MG TAB PO SCH (08:02)
[2017-11-27] MEDS: CARVEDILOL 6.25 MG TAB PO SCH ×2 (08:03→18:09)
[2017-11-27] MEDS: PANTOPRAZOLE SODIUM 40 MG TAB PO SCH (08:03)
[2017-11-27] MEDS: CALCITRIOL 0.25 MCG CAP PO SCH (08:09)
[2017-11-27] MEDS ORDERED: LIDOCAINE 1% 300 MG/30 ML SDV ONE (10:10)
[2017-11-27] MEDS ORDERED: fentaNYL 100 MCG/2 ML INJ ONE (10:10)
[2017-11-27] MEDS ORDERED: MIDAZOLAM 2 MG/2 ML VIAL ONE (10:10)
[2017-11-27] MEDS ORDERED: IOPAMIDOL (ISOVUE-370) 150 ML BTL IV ONE (10:11)
[2017-11-27] MEDS: ASPIRIN EC 81 MG TAB PO SCH (10:33)
--- NOTE | 2017-11-27 10:38 | PDCARPN ---
Cardiology Progress Note Assessment/Plan: Assessment: 1. Acute systolic congestive heart failure 2. Cardiomyopathy with LVEF of 15% 3. Moderate to severe mitral regurgitation 4. Moderate pulmonary hypertension with RV systolic pressure 49 mm of mercury 5. Chronic renal insufficiency, stage IV with increasing creatinine during admission most likely secondary to cardiorenal syndrome Plan: Left and right heart catheterization to be done this morning Risks and benefits of left heart catheterization discussed in detail including potential for worsening renal function due to contrast induced nephropathy that could potentially lead to permanent hemodialysis. Patient is aware please see HPI for details Hold Lasix prior to left heart catheterization this morning 11/27/17 10:41 Subjective: Mr. Hess is a pleasant 69-year-old gentleman who presented to [facility] on November 24 with less than the 2 month history of progressive symptoms of shortness of breath, dyspnea on exertion, exertional intolerance, increased abdominal girth, lower extremity edema and approximately 20 lb weight gain. He was found have severe global cardiomyopathy with LVEF of 15%. He has moderate to severe mitral regurgitation and moderate pulmonary hypertension with RV systolic pressure of 49 mm of mercury. His course has been complicated by frequent PVCs and nonsustained ventricular tachycardia. Mr. Hess also has a known history of stage IV chronic renal insufficiency with baseline creatinine between 2.0 and 2.3. He is followed by of [facility]. He had been scheduled for left heart catheterization yesterday however due to scheduled complex was not able to be done. His creatinine has increased from admission from 2.0-2.5 and now 2.9 this morning. We discussed in detail the possibility of contrast induced nephropathy, worsening of renal failure and the potential for dialysis. He states he is aware that he was headed toward dialysis and this has been discussed with his cigarette machine operator. He states"I can live without my kidneys, however, I cannot live without my heart". He is feeling somewhat better since his admission with less shortness of breath. He denies complaints of chest pain, chest pressure. He denies any acute viral syndrome prior to the onset of symptoms which began in early October 2017. In reviewing his records he did have a nuclear stress test in June of this year demonstrating normal perfusion and function with possible inferior infarct with no evidence of ischemia and LVEF of 56%. Reviewed/Discussed With: multidisciplinary team Time Spent with Patient: greater than 25 minutes Time Spent with Patient: Greater than 25 minutes spent on this patients care, greater than 50% of time spent counseling, educating, and coordinating care regarding the above mentioned plan. Objective: Vital Signs (8 Hrs) Temp Pulse Resp BP Pulse Ox 11/27/17 07:07 36.4 C 101 H 20 130/89 H 98 11/27/17 04:51 36.7 C 94 17 91/68 L 98 Intake/Output (24 Hrs) 11/26/17 11/27/17 11/28/17 05:59 05:59 05:59 Intake Total 1030 1480 Output Total 1925 1000 Balance -895 480 Intake: Oral (ml) 1030 1480 Output: Urine (ml) 1925 1000 Urinal 1925 1000 Other: Weight 92.034 kg 92.624 kg Intake Quantity Yes Sufficient Output Comment Toilet pt took hat out of toilet Number of Voids Toilet 1 Urinal 1 1 Number of Stools Toilet 1 Urinal 1 Result Diagrams: 11/24/17 12:25 11/27/17 04:30 Cardiac Labs: Cardiac Lab Results (72 Hrs) 11/25/17 11/24/17 11/24/17 03:44 23:25 18:45 Troponin I 0.125 H 0.129 H 0.130 H - Physical Exam Eyes: PERRL Cardiovascular: regular rate and rhythm, no murmurs, no rubs, no gallops, other (2+ pitting edema to knees bilat ) Peripheral Pulses: 2+: femoral (R) Respiratory: clear to auscultate bilat Gastrointestinal: other (Non Tender. Postive fluid wave ) Musculoskeletal: no muscular tenderness Neurologic: CN II-XII grossly intact ICD10 Worksheet Patient Problems: Problems Problem Status Onset CHF (congestive heart failure) Acute Cardiomegaly Acute Pleural effusion Acute Renal insufficiency Acute Shortness of breath Acute Elevated troponin Acute Frequent PVCs Acute chronic disease mgmt/transitional care Acute
--- NOTE | 2017-11-27 11:29 | HOSPPROG ---
Hospitalist Progress Note Assessment/Plan: DIAGNOSES: Acute systolic heart failure - EF 15%, down from 50%. Diuresing net neg. Still with LE and abdominal edema. -cont diuresis with Lasix 40 IV BID -monitor I&O's, daily weights -warrants ischemic eval, angiogram today with Dr. Clemens -cont ASA, BB, Ronak deferred with elevated Cr AHRF - 2 LPM. 2/2 above, diuresis, wean O2 as able Moderate - severe MR - mild MR seen in 06/2017, rapid progression thought 2/2 low EF -cards following Elevated trop - suspect strain in setting of acute HF. No chest pain. -further ischemic eval as above CKD - Suspect cardiorenal. Baseline Cr ~2.3, appreciate renal consult -ronak held -hold diuretic prior to cath and will need to follow renal function closely after angio -avoid nephrotoxic agents NSVT - cont coreg Hypertension - normotensive with coreg, lisinopril held due to elevated Cr Full code DVT PPLX - VITALIY I reviewed in detail today with Dr. Jimbo Clemens Seen by me on hospitalist rounds and multidisciplinary rounds High risk of acute renal failure and other complications after angiography The patient did have a palliative care consult yesterday and he is still looking through paperwork and sorting through decisions around that SUBJECTIVE: Patient feeling better though still with some dyspnea and decreased appetite No abdominal pain or nausea No chest pain OBJECTIVE Vitals reviewed: Stable without fever Straddle Carrier Operator, my review: Did have 1 run of nonsustained ventricular tachycardia overnight Exam: alert oriented skin warm dry color ok resps not labored lungs clear BSs heart regular abd soft nondistended nontender, bowel sounds present limbs warm, still with some edema iv site ok Laboratory data: Creatinine is up a bit at 2.9 today with elevation and BUN as well Electrolytes stable Objective: Vital Signs Temp Pulse Resp BP Pulse Ox 36.4 C 101 H 20 130/89 H 98 11/27/17 07:07 11/27/17 07:07 11/27/17 07:07 11/27/17 07:07 11/27/17 07:07 Laboratory Results 11/27/17 04:30 11/26/17 11/27/17 11/28/17 06:59 06:59 06:59 Intake Total 1030 1480 Output Total 1925 1000 Balance -895 480 PT 14.7 SEC (12.0-15.0) 11/24/17 12:25 INR 1.13 (0.83-1.16) 11/24/17 12:25 - Time Spent With Patient Time Spent with Patient: greater than 35 minutes Time Spent with Patient: Greater than 35 minutes spent on this patients care, greater than 50% of time spent counseling, educating, and coordinating care regarding the above mentioned plan. ICD10 Worksheet Patient Problems: Problems Problem Status Onset CHF (congestive heart failure) Acute Cardiomegaly Acute Pleural effusion Acute Renal insufficiency Acute Shortness of breath Acute Elevated troponin Acute Frequent PVCs Acute chronic disease mgmt/transitional care Acute
[2017-11-27] MEDS ORDERED: ASPIRIN 325 MG TAB ONE (12:40)
--- NOTE | 2017-11-27 12:52 | PDPROPOC ---
Sedation Plan of Care Sedation Plan of Care: vital signs stable, mental status noted, patient educated of risks, benefits, alternatives, patient can tolerate sedation ASA Classification: ASA 2 Planned drugs: fentanyl, midazolam Mallampati Score: Class 2 Mallampati Reference Image: Patient passed 3-3-2 rule?: Yes
[2017-11-27] MEDS ORDERED: ATROPINE SULFATE 1 MG/10 ML SYR IVP PRN (14:00)
--- NOTE | 2017-11-27 22:09 | CPIP ---
[f rep st] INVASIVE CARDIAC PROCEDURE PROCEDURE PERFORMED: Left and right heart catheterization. INDICATION FOR PROCEDURE: New onset of severe systolic congestive heart failure with dilated cardiom yopathy and symptoms of shortness of breath and dyspnea on exertion with LVEF of 15%. PROCEDURES PERFORMED: 1. Left heart catheterization. 2. Right heart catheterization. DETAILS OF PROCEDURE: After informed consent was obtained for both left and right heart catheterizat ion, the patient was brought to the cardiac catheterization lab, where he was prepped and draped in s terile fashion. Using 1% lidocaine, the right groin was anesthetized. Using the modified Seldinger te chnique and micropuncture technique, the right common femoral artery was cannulated with a 6-Italian s twin without difficulty. The patient received further and local anesthesia with 1% lidocaine more me dially over the femoral vein. Femoral vein was cannulated with a 7-Italian sheath with using the modif ied Seldinger technique. Right heart catheterization was performed with a pulmonary artery catheter floated to wedge position with capturing of wedge pressure tracing, followed by pulmonary artery pressure tracing, followed by RV pressure tracing, and right atrial pressure tracing. Oxygen saturations were obtained in the pulmo nary artery, right ventricle, and right atrium as well as the aorta. Balloon was removed without comp lication. Left heart catheterization was performed. JL4 catheter was used to take images of the left coronary a natomy in multiple projections. JL4 catheter was removed over a guidewire for a JR4 catheter. JR4 cat heter was attempted to cannulate the right coronary artery unsuccessfully. This was exchanged for a W illiams right catheter. Candelario right catheter was used to cannulate the right coronary artery. Will iams right catheter was removed over a guidewire without complications. An angled pigtail catheter wa s used to cross the aortic valve. LVEDP was assessed. No left ventriculogram was performed to spare c ontrast. Angled pigtail catheter was removed over a guidewire without complications. Imaging of the right comm on femoral artery was obtained, demonstrating appropriate placement of the right common femoral arter y sheath above the bifurcation, over the femoral head, and was suitable for Angio-Seal deployment. FINDINGS: 1. Left main normal size and caliber; bifurcates into left anterior descending and left circumflex c oronary artery. There are mild luminal irregularities within the left main with no evidence of flow-l imiting stenosis. 2. Left anterior descending demonstrates ostial stenosis of approximately 60% to 70%. There is mid L AD stenosis of approximately 50%. The mid and distal vessel demonstrates mild luminal irregularities with no flow-limiting disease. 3. Left circumflex coronary artery demonstrates ostial stenosis of approximately 80% to 90%. There i s ostial stenosis at the origin of the first obtuse marginal branch. There are mild luminal irregular ities within the remainder of the circumflex and obtuse marginal branches. 4. The right coronary artery is a nondominant vessel. There is ostial stenosis as evidenced by dampe faith of the catheter and noted on subselective imaging of approximately 80% to 90%. There is mid RCA stenosis of approximately 50% to 60%. HEMODYNAMICS: Pulmonary capillary wedge pressure 29 mmHg. Pulmonary artery pressure of 51/24 mmHg wit h mean of 35 mmHg. Right ventricular pressure 50/10 with RV end-diastolic pressure of 19. Cardiac out put of 4.22 L/minute. Cardiac index 1.99 L/minute per m squared. Left ventricular end-diastolic press ure 28 mmHg. CONCLUSION: Severe 3-vessel coronary artery disease with ostial disease at the bifurcatio n of the left main into the left anterior descending and circumflex as well as disease within the ost ium of the first obtuse marginal branch. There is also 50% proximal stenosis within the left anterior descending and ostial stenosis of the right coronary artery. PLAN: Recommend consultation with CT surgery for consideration of coronary artery bypass graft surge ry. /[id number]/MODL
[2017-11-28] MEDS: HEPARIN 5,000 UNIT/0.5 ML INJ SC SCH ×3 (06:28→22:05)
[2017-11-28] MEDS: VENLAFAXINE HCL 75 MG TAB PO SCH (08:19)
[2017-11-28] MEDS: ASPIRIN EC 81 MG TAB PO SCH (08:19)
[2017-11-28] MEDS: PANTOPRAZOLE SODIUM 40 MG TAB PO SCH (08:19)
[2017-11-28] MEDS: CALCITRIOL 0.25 MCG CAP PO SCH (08:19)
[2017-11-28] MEDS: FINASTERIDE 5 MG TAB PO SCH (08:19)
[2017-11-28] MEDS: CARVEDILOL 6.25 MG TAB PO SCH ×2 (08:19→18:16)
[2017-11-28] MEDS: ALLOPURINOL 100 MG TAB PO SCH (08:19)
--- NOTE | 2017-11-28 10:43 | SOAPPROG ---
SOAP Progress Note Assessment/Plan: Assessment: 77 y/o M with h/o HTN, HLD, CKD IV who presented with volume overload and found to have an EF of 15%. # CKD IV -Cr baseline 2.0-2.3, currently 3.0mg/dL -etiology likely cardiorenal, HTN and nicotine abuse, previously bland urine in 06/20 -UA bland -Holding Lisinopril for now -Despite low EF, seems fairly euvolemic, will reduce Lasix to 40mg daily -May yet worsen some after the contrast 11/27 -avoid NSAIDs and renally dose meds for eGFR<30ml/min # HTN/vol -Reduce lasix to 40mg daily BID -BP's low, keep MAP>65 -cardiology help appreciated -low sodium diet<2g recommended # CM with EF 15% -unclear etiology -cath 11/27 showed MV dz, to get CABG -risk of SAMANTHA approximately 26% with low risk for dialysis -may need sleep study as outpt as well given R-sided heart findings -Holding Lisinopril for now to help optimize renal function and reduce risk of SAMANTHA, eventually will need to resume for HFrEF # BMD -on calcitriol, continue -monitor phos Plan: 11/28/17 10:41 11/28/17 10:46 Subjective: Feels ok, no SOB/CP. Objective: Vital Signs Temp Pulse Resp BP Pulse Ox 36.4 C 99 16 133/68 H 96 11/28/17 07:25 11/28/17 07:25 11/28/17 07:25 11/28/17 07:25 11/28/17 07:25 Laboratory Results 11/28/17 03:59 11/27/17 11/28/17 11/29/17 05:59 05:59 05:59 Intake Total 1480 910 Output Total 1000 1050 Balance 480 -140 PT 14.7 SEC (12.0-15.0) 11/24/17 12:25 INR 1.13 (0.83-1.16) 11/24/17 12:25 Physical Exam - Physical Exam General Appearance: WD/WN, alert, no apparent distress Respiratory: lungs clear, normal breath sounds Cardiac/Chest: regular rate, rhythm Abdomen: non-tender, soft Extremities: other (trace b/l LE edema) ICD10 Worksheet Patient Problems: Problems Problem Status Onset CHF (congestive heart failure) Acute Cardiomegaly Acute Pleural effusion Acute Renal insufficiency Acute Shortness of breath Acute Elevated troponin Acute Frequent PVCs Acute chronic disease mgmt/transitional care Acute
--- NOTE | 2017-11-28 11:06 | PDCARPN ---
Cardiology Progress Note Assessment/Plan: Assessment: 1. Acute systolic congestive heart failure 2. Cardiomyopathy with LVEF of 15% 3. Moderate to severe mitral regurgitation 4. Moderate pulmonary hypertension with RV systolic pressure 49 mm of mercury 5. Chronic renal insufficiency, stage IV with increasing creatinine during admission most likely secondary to cardiorenal syndrome 6. Three-vessel coronary disease noted on left heart catheterization yesterday Plan: -continue to hold Lasix, await nephrology recommendations -continue Coreg 6.25 mg p.o. B.i.d. -continue aspirin 81 mg daily -no RU-inhibitor spironolactone in the setting of acute on chronic renal failure -history of intolerance to statin therapy. Will obtain records from [facility] in [place] to assess with statin he had been on in the past -CT surgery consultation with Dr. Patle tomorrow. 11/27/17 10:41 11/28/17 11:07 Subjective: Mr. Hess is feeling well this morning. No complaints. He denies shortness of breath, dyspnea, PND, orthopnea. No complaints of chest pain or chest pressure. No dizziness, lightheadedness, near syncope or syncope. Diagnostic left heart catheterization demonstrated 3 vessel coronary disease with ostial LAD, ostial circumflex and ostial RCA stenosis. CT surgery consult with Dr. Rhodes tomorrow. Will consider preoperative transesophageal echocardiogram for further evaluation of mitral valve. Will discuss with Dr. Patel prior to arranging for JOSEPH. Creatinine of 3 this morning. Yesterday creatinine of 2.9. He is followed by [facility]. Lasix has been held since yesterday. Weight is essentially unchanged. He continues to tolerate Coreg 6.25 mg p.o. B.i.d. well. He is on aspirin 81 mg daily. Of note, he reports having a TIA approximately 5 or 6 years ago with right arm weakness and slurred speech. No known history of atrial fibrillation. He states after his TIA he was started on statins. He states he was intolerant to statin secondary to dizziness and fatigue. He is uncertain which statin he had been on. Will hold off on starting statin therapy until after surgery. Mr. Hess in I again reviewed his angiogram results. I explained that in the setting of severely reduced ejection fraction, severe mitral regurgitation and acute on chronic renal failure that he was at high surgical risk. He is aware and remains interested in pursuing surgical option. Reviewed/Discussed With: multidisciplinary team Objective: Vital Signs (8 Hrs) Temp Pulse Resp BP Pulse Ox 11/28/17 07:25 36.4 C 99 16 133/68 H 96 11/28/17 04:00 36.6 C 86 20 117/69 97 Intake/Output (24 Hrs) 11/27/17 11/28/17 11/29/17 05:59 05:59 05:59 Intake Total 1480 910 Output Total 1000 1050 Balance 480 -140 Intake: Oral (ml) 1480 910 Output: Urine (ml) 1000 1050 Urinal 1000 1050 Other: Weight 92.624 kg 92.7 kg Intake Quantity Yes Sufficient Number of Voids Urinal 1 Number of Stools Toilet 1 Urinal 1 1 Result Diagrams: 11/24/17 12:25 11/28/17 03:59 ICD10 Worksheet Patient Problems: Problems Problem Status Onset CHF (congestive heart failure) Acute Cardiomegaly Acute Pleural effusion Acute Renal insufficiency Acute Shortness of breath Acute Elevated troponin Acute Frequent PVCs Acute chronic disease mgmt/transitional care Acute
--- NOTE | 2017-11-28 14:20 | ASMTCMCOM ---
CM Note CM Note Notes: Abebe came and met w/ pt. Pt would like to hold off on making a decision until surgery and after talking to his brother. Needs are TBD at this time. CM to follow. Plan: TBD Date Signed: 11/28/2017 02:19 PM Electronically Signed By:MONIQUE Currie
--- NOTE | 2017-11-28 17:45 | HOSPPROG ---
Hospitalist Progress Note Assessment/Plan: DIAGNOSES: *Acute systolic heart failure with pulmonary and peripheral edema * severe global cardiomyopathy EF 15%, down from 50%, new finding *AHRF - 2 LPM. 2/2 above, diuresis, wean O2 as able *Moderate - severe MR - mild MR seen in 06/2017, rapid progression thought 2/2 low EF -cards following *NSVT on threat monitoring analyst, asymptomatic - cont coreg *acute on chronic renal failure with probable cardiorenal component -RU-inhibitor currently held -baseline 2.3 creatinine *Elevated trop - suspect strain in setting of acute HF. No chest pain. Full code DVT PPLX - VITALIY I reviewed in detail today with Dr. Jimbo Clemens Seen by me on hospitalist rounds and multidisciplinary rounds Some increase in creatinine today but still not terribly far from his baseline renal function, good urine output Will need to watch this carefully however He is certainly a high risk surgery patient with his renal function, however given his overall picture a surgical approach seems likely to be ideal, Dr. Díaz will be seeing the patient upon his return on Wednesday SUBJECTIVE: Patient feeling better though still with some dyspnea and decreased appetite No abdominal pain or nausea No chest pain OBJECTIVE Vitals reviewed: Stable without fever Dope Mixer, my review: No repeat of his V-tach Exam: alert oriented skin warm dry color ok resps not labored lungs clear BSs heart regular abd soft nondistended nontender, bowel sounds present limbs warm, still with some edema iv site ok Laboratory data: Creatinine is up a bit at 2.9 today with elevation and BUN as well Electrolytes stable Objective: Vital Signs Temp Pulse Resp BP Pulse Ox 36.7 C 95 22 H 99/59 L 91 L 11/28/17 16:00 11/28/17 16:00 11/28/17 16:00 11/28/17 16:00 11/28/17 16:00 Laboratory Results 11/28/17 03:59 11/27/17 11/28/17 11/29/17 06:59 06:59 06:59 Intake Total 1480 910 Output Total 1000 1050 400 Balance 480 -140 -400 PT 14.7 SEC (12.0-15.0) 11/24/17 12:25 INR 1.13 (0.83-1.16) 11/24/17 12:25 - Time Spent With Patient Time Spent with Patient: greater than 35 minutes Time Spent with Patient: Greater than 35 minutes spent on this patients care, greater than 50% of time spent counseling, educating, and coordinating care regarding the above mentioned plan. ICD10 Worksheet Patient Problems: Problems Problem Status Onset CHF (congestive heart failure) Acute Cardiomegaly Acute Pleural effusion Acute Renal insufficiency Acute Shortness of breath Acute Elevated troponin Acute Frequent PVCs Acute chronic disease mgmt/transitional care Acute
[2017-11-29] MEDS: HEPARIN 5,000 UNIT/0.5 ML INJ SC SCH ×3 (05:45→21:01)
[2017-11-29] MEDS ORDERED: FUROSEMIDE 40 MG/4 ML VIAL IVP SCH (09:00)
--- NOTE | 2017-11-29 09:16 | SOAPPROG ---
SOAP Progress Note Assessment/Plan: Assessment: Pt met, chart reviewed. Pt of Dr. Carter, known CKD with Cr in 2's, presented with decompensated heart failure. His Cr has risen to 3 in the setting of an excellent diuresis. His heart failure is improved. He received diagnostic angiography yesterday, and has TVD and severe MR. He will need surgery. 1. Renal Failure Slow diuresis at this point. Monitor for SAMANTHA, but he received low dose. 2. Perioperative Risk of worsening renal failure. The [facility] Jesus score is a validated risk calculator of this. It estimates his post op need for HD at 21.5%. This seems conservative. I reviewed with patient. He is quite pragmatic, and accepts this risk in the face of needing surgery. 3. CAD and MR As above. CTS consult pending. 4. Anemia This is mild, and he does not need GABRIELLA at this point. Plan: 11/29/17 09:11 11/29/17 09:16 Subjective: No complaints. Breathing well while supine Objective: Vital Signs Temp Pulse Resp BP Pulse Ox 36.6 C 92 15 113/75 99 11/29/17 06:54 11/29/17 06:54 11/29/17 06:54 11/29/17 06:54 11/29/17 06:54 Laboratory Results 11/28/17 03:59 11/28/17 11/29/17 11/30/17 05:59 05:59 05:59 Intake Total 910 600 250 Output Total 1050 550 200 Balance -140 50 50 PT 14.7 SEC (12.0-15.0) 11/24/17 12:25 INR 1.13 (0.83-1.16) 11/24/17 12:25 Physical Exam - Physical Exam General Appearance: no apparent distress Respiratory: lungs clear Cardiac/Chest: regular rate, rhythm Extremities: pedal edema Neuro/Psych: oriented x 3 ICD10 Worksheet Patient Problems: Problems Problem Status Onset CHF (congestive heart failure) Acute Cardiomegaly Acute Pleural effusion Acute Renal insufficiency Acute Shortness of breath Acute Elevated troponin Acute Frequent PVCs Acute chronic disease mgmt/transitional care Acute
[2017-11-29] MEDS ORDERED: NS 1,000 ML IV ONE (09:40)
[2017-11-29] MEDS: VENLAFAXINE HCL 75 MG TAB PO SCH (10:26)
[2017-11-29] MEDS: CALCITRIOL 0.25 MCG CAP PO SCH (10:26)
[2017-11-29] MEDS: FINASTERIDE 5 MG TAB PO SCH (10:26)
[2017-11-29] MEDS: ALLOPURINOL 100 MG TAB PO SCH (10:26)
[2017-11-29] MEDS: PANTOPRAZOLE SODIUM 40 MG TAB PO SCH (10:27)
[2017-11-29] MEDS: ASPIRIN EC 81 MG TAB PO SCH (10:27)
[2017-11-29] MEDS: CARVEDILOL 6.25 MG TAB PO SCH ×2 (10:27→17:59)
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
[2017-11-29] MEDS: FUROSEMIDE 100 MG/10 ML VIAL IVP SCH (15:41)
[2017-11-29] MEDS ORDERED: PROPOFOL 200 MG/20 ML VIAL ONE ×2 (16:36→16:37)
--- NOTE | 2017-11-29 16:39 | PDANEPAE ---
ANE History of Present Illness JOSEPH ANE Past Medical History - Cardiovascular History Hx Hypertension: Yes Hx Arrhythmias: Yes Hx Coronary Artery / Peripheral Vascular Disease: Yes Hx CHF / Valvular Disease: Yes - Pulmonary History Hx Oxygen in Use at Home: Yes O2 in Use at Home (L/minute): 2 Hx Sleep Apnea: No - Endocrine History Hx Diabetes: No - Renal History Hx Renal Disorders: Yes - Chronic Pain History Chronic Pain: Yes ANE Review of Systems Review of Systems: SOB - Exercise capacity Exercise capacity: <4 METS ANE Patient History - Allergies Allergies/Adverse Reactions: erythromycin base Allergy (Verified 11/24/17 14:14) Vomiting ALL STATINS Allergy (Uncoded 11/24/17 14:14) DIZZINESS - Home Medications Home medications: home medication list seen and reviewed Home Medications: Allopurinol [Allopurinol 100 MG (*)] 200 mg PO DAILY 06/11/17 [Last Taken ] Finasteride [Proscar 5 MG (*)] 5 mg PO DAILY 06/11/17 [Last Taken 11/24/17] Venlafaxine HCl [Venlafaxine 75MG (*)] 75 mg PO DAILY 06/11/17 [Last Taken 11/24] Calcitriol [Calcitriol (*)] 0.25 mcg PO DAILY 11/24/17 [Last Taken 11/24/17] Cholecalciferol Vit D3 [Vitamin D3 (*)] 1,000 units PO DAILY 11/24/17 [Last Taken 11/24/17] Furosemide [Lasix 20 MG (*)] 20 mg PO DAILY 11/24/17 [Last Taken 11/24/17] Herbals/Supplements -Info Only 1 ea PO DAILY 11/24/17 [Last Taken Unknown] Lisinopril [Zestril 40 mg (*)] 40 mg PO DAILY 11/24/17 [Last Taken 11/24/17] Omeprazole 20 mg PO DAILY 11/24/17 [Last Taken 11/24/17] - NPO status NPO Status: no food or drink >8 hours - Anes Hx Anes Hx: no prior problems - Smoking Hx Smoking Status: Former smoker - Family Anes Hx Family Anes Hx: none ANE Labs/Vital Signs - Labs Result Diagrams: 11/24/17 12:25 11/29/17 10:40 - Vital Signs Vital Signs: reviewed preoperatively; see RN documention for details Blood Pressure: 110/72 Heart Rate: 92 Respiratory Rate: 12 O2 Sat (%): 94 Height: 179.07 cm Weight: 94 kg ANE Physical Exam - Airway Neck exam: FROM Mallampati Score: Class 1 Mouth exam: normal dental/mouth exam - Pulmonary Pulmonary: no respiratory distress - Cardiovascular Cardiovascular: regular rate and rhythym - ASA Status ASA Status: IV ANE Anesthesia Plan Total IV Anesthesia: Yes
--- NOTE | 2017-11-29 16:40 | POSTANESTH ---
Post Anesthetic Evaluation Cardiovascular Status: Similar to Pre-Op Cond Respiratory Status: Similar to Pre-op Cond. Level of Consciousness/Mental Status: Can Participate in Eval, Mildly Sleepy, Arousable Pain Control: Adequate, Prn Tx Ordered Nausea/Vomiting Control: Adequate, Prn Tx Ordered Complications Possibly Related to Anesthesia: None Noted
--- NOTE | 2017-11-29 18:22 | HOSPPROG ---
Hospitalist Progress Note Assessment/Plan: DIAGNOSES: *Acute systolic heart failure with pulmonary and peripheral edema *severe global cardiomyopathy EF 15%, down from 50%, new finding *Moderate - Severe MR - (mild MR seen in 06/2017, rapid progression thought 2/2 low EF?) *NSVT on seo intern here, asymptomatic - cont coreg *acute on chronic renal failure with probable cardiorenal component -RU-inhibitor currently held -baseline 2.3 creatinine currently up to 3.0 *Elevated trop - suspect strain in setting of acute HF. No chest pain. Full code DVT PPLX - VITALIY I reviewed today in detail with Brent Monroe and Jimbo Fox of Cardiology, along with Dr. Jimbo Patel Seen by me today on hospitals rounds and multidisciplinary rounds At this point the patient is being assessed for CABG/valve surgery. However he remains not yet compensated in terms of volume status, and has some decompensation of renal failure. Plan is to continue diuresis here a bit more aggressively as he has not really diuresed over the last couple of days, and follow his renal function very closely. Patient currently at high risk for increase complications with surgery due to his renal failure. 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, my review: No recurrence of his V-tach Exam: alert oriented skin warm dry color ok resps not labored lungs clear BSs heart regular abd soft nondistended nontender, bowel sounds present limbs warm, still with some edema of legs and feet iv site ok Laboratory data: Creatinine is up a bit at 3.0 today with elevation and BUN as well Electrolytes stable Objective: Vital Signs Temp Pulse Resp BP Pulse Ox 36.3 C 86 16 106/63 94 11/29/17 17:53 11/29/17 17:59 11/29/17 17:53 11/29/17 17:53 11/29/17 17:53 Laboratory Results 11/29/17 10:40 11/28/17 11/29/17 11/30/17 06:59 06:59 06:59 Intake Total 910 850 240 Output Total 1050 750 650 Balance -140 100 -410 PT 14.7 SEC (12.0-15.0) 11/24/17 12:25 INR 1.13 (0.83-1.16) 11/24/17 12:25 - Time Spent With Patient Time Spent with Patient: greater than 35 minutes Time Spent with Patient: Greater than 35 minutes spent on this patients care, greater than 50% of time spent counseling, educating, and coordinating care regarding the above mentioned plan. ICD10 Worksheet Patient Problems: Problems Problem Status Onset CHF (congestive heart failure) Acute Cardiomegaly Acute Pleural effusion Acute Renal insufficiency Acute Shortness of breath Acute Elevated troponin Acute Frequent PVCs Acute chronic disease mgmt/transitional care Acute
[2017-11-30] MEDS: HEPARIN 5,000 UNIT/0.5 ML INJ SC SCH ×3 (06:03→20:13)
[2017-11-30] MEDS ORDERED: CANN-EASE 2 GM TUBE TP PRN (08:41)
[2017-11-30] MEDS: FUROSEMIDE 100 MG/10 ML VIAL IVP SCH ×2 (09:48→16:33)
[2017-11-30] MEDS: PANTOPRAZOLE SODIUM 40 MG TAB PO SCH (09:51)
[2017-11-30] MEDS: CALCITRIOL 0.25 MCG CAP PO SCH (09:51)
[2017-11-30] MEDS: FINASTERIDE 5 MG TAB PO SCH (09:51)
[2017-11-30] MEDS: ALLOPURINOL 100 MG TAB PO SCH (09:51)
[2017-11-30] MEDS: CARVEDILOL 6.25 MG TAB PO SCH ×2 (09:51→18:27)
[2017-11-30] MEDS: VENLAFAXINE HCL 75 MG TAB PO SCH (09:51)
[2017-11-30] MEDS: ASPIRIN EC 81 MG TAB PO SCH (09:51)
--- NOTE | 2017-11-30 12:00 | ECHO ---
[email or web address] [address] [address] Main: [phone] Fax: Transesophageal Echocardiography Name: MELANIE COLLADO MR#: [id number] Study Date: 11/29/2017 Study Time: 04:34 PM Date of : 1940 Age: 77 year(s) Height: 177.8 cm (70 in.) Weight: 93.89 kg (207 lb.) BSA: 2.12 m2 Gender: Male Examination: JOSEPH Indication: pre cardiac surgery. evaluate mr/tr/ef Image Quality: Adequate Contrast: Requested by: Iveth Daniels Heart Rate: Rhythm: BP: / Procedure Staff Deck Mechanic: Emerita Edwards [facility] Reading Physician: Iveth Daniels MD Requesting Provider: Jimbo Patel JOSEPH Exam Details Conclusions: Dilated left ventricle. Severely reduced systolic LV function. The ejection fraction is visually estimated to be 20 %. The left atrial appendage is unilobular. Good color flow doppler in the left atrial appendage. Normal PW-Doppler flow pattern. Unable to definitively rule out SHRUTHI thrombus. Moderate to severe mitral regurgitation. The aortic valve is tri-leaflet. There is no significant aortic valve regurgitation. No aortic valve stenosis is present. Mild tricuspid regurgitation is present. Measurements: Chambers Valvular Assessment AV/MV Valvular Assessment TV/PV Normal Normal Normal Name Value Range Name Value Range Name Value Range Visual EF: 20 % Additional Measurements: Valvular Assessment AV/MV Name Value MR ERO: 0.260 cm2 Patient: MELANIE COLLADO Study Date: 11/29/2017 Page 1 of 2 04:34 PM MR PISA radius: 7 mm MR Reg. Volume: 33 ml Findings: Left Ventricle: Dilated left ventricle. Severely reduced systolic LV function. The ejection fraction is visually estimated to be 20 %. Left Atrial Appendage: The left atrial appendage is unilobular. Good color flow doppler in the left atrial appendage. Normal PW-Doppler flow pattern. Unable to definitively rule out SHRUTHI thrombus. Mitral Valve: Moderate to severe mitral regurgitation. No mitral stenosis is present. Aortic Valve: The aortic valve is tri-leaflet. There is no significant aortic valve regurgitation. No aortic valve stenosis is present. Tricuspid Valve: The tricuspid valve is normal in appearance and function. Mild tricuspid regurgitation is present. Pulmonic Valve: The pulmonic valve is normal in appearance and function. l1n (No Signature Object) Patient: MELANIE COLLADO Study Date: 11/29/2017 Page 2 of 2 04:34 PM [id number]
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
--- NOTE | 2017-11-30 12:43 | HOSPPROG ---
Hospitalist Progress Note Assessment/Plan: DIAGNOSES: *Acute systolic heart failure with pulmonary and peripheral edema *severe global cardiomyopathy EF 15%, down from 50%, new finding *Moderate - Severe MR - (mild MR seen in 06/2017, rapid progression thought 2/2 low EF?) *NSVT on personnel monitor here, asymptomatic - cont coreg *acute on chronic renal failure with probable cardiorenal component -RU-inhibitor currently held -baseline 2.3 creatinine, was up to 3.0, 2.7 today *Elevated trop - suspect strain in setting of acute HF. No chest pain. Full code DVT PPLX - VITALIY I reviewed today in detail with Brent Monroe Seen by me today on hospitals rounds and multidisciplinary rounds At this point the patient is being assessed for CABG/valve surgery. However he remains not yet compensated in terms of volume status, and has some decompensation of renal failure. Plan is to continue diuresis here a bit more aggressively as he has not really diuresed over the last couple of days, and follow his renal function very closely. Patient currently at high risk for increase complications with surgery due to his renal failure. Waiting on final recommendations from surgery team Subjective: Patient reports no complainst this AM. Objective: Vital Signs Temp Pulse Resp BP Pulse Ox 36.5 C 93 16 107/61 92 11/30/17 11:23 11/30/17 11:23 11/30/17 11:23 11/30/17 11:23 11/30/17 11:23 Microbiology 11/24/17 18:55 Blood Culture - Final Blood 11/24/17 18:45 Blood Culture - Final Blood Laboratory Results 11/30/17 03:36 11/29/17 11/30/17 12/01/17 05:59 05:59 05:59 Intake Total 600 640 Output Total 550 2100 300 Balance 50 -1460 -300 PT 14.7 SEC (12.0-15.0) 11/24/17 12:25 INR 1.13 (0.83-1.16) 11/24/17 12:25 - Physical Exam Constitutional: no apparent distress Eyes: PERRL Ears, Nose, Mouth, Throat: moist mucous membranes Cardiovascular: regular rate and rhythym, systolic murmur Respiratory: no respiratory distress Gastrointestinal: normoactive bowel sounds Skin: warm Musculoskeletal: no muscle tenderness Neurologic: AAOx3 Psychiatric: interacting appropriately ICD10 Worksheet Patient Problems: Problems Problem Status Onset CHF (congestive heart failure) Acute Cardiomegaly Acute Pleural effusion Acute Renal insufficiency Acute Shortness of breath Acute Elevated troponin Acute Frequent PVCs Acute chronic disease mgmt/transitional care Acute
[2017-11-30] MEDS ORDERED: HYDROCORTISONE 1% CREAM TP PRN (12:59)
--- NOTE | 2017-11-30 13:39 | SOAPPROG ---
SOAP Progress Note Assessment/Plan: Assessment/Plan: 77 y/o M with a known h/o CKD who presented with volume overload found to have new CM with severe CAD and MR on cardiac cath. 1. JENN on CKD -baseline Cr 2.0, up to 3.0 on admission now 2.7 -UO >2L yesterday -continue slow diuresis, low sodium diet -may change lasix to po 80-120mg BID at some point 2. Perioperative Risk of worsening renal failure -high risk of dialysis, 20% or greater -patient aware of this 3. CAD and MR -await CTS consult -diuresis as above -on Coreg as well, would hold RU/ARB 4. Anemia -mild no indication for GABRIELLA 5. BMD -continue calcitriol daily 11/30/17 13:39 Subjective: No events overnight. Making good UO. Objective: Vital Signs Temp Pulse Resp BP Pulse Ox 36.5 C 93 16 107/61 92 11/30/17 11:23 11/30/17 11:23 11/30/17 11:23 11/30/17 11:23 11/30/17 11:23 Microbiology 11/24/17 18:55 Blood Culture - Final Blood 11/24/17 18:45 Blood Culture - Final Blood Laboratory Results 11/30/17 03:36 11/29/17 11/30/17 12/01/17 05:59 05:59 05:59 Intake Total 600 640 Output Total 550 2100 300 Balance 50 -1460 -300 PT 14.7 SEC (12.0-15.0) 11/24/17 12:25 INR 1.13 (0.83-1.16) 11/24/17 12:25 Physical Exam - Physical Exam General Appearance: WD/WN, alert, no apparent distress EENT: PERRL/EOMI Neck: non-tender, full range of motion, supple Respiratory: decreased breath sounds Cardiac/Chest: regular rate, rhythm, edema, systolic murmur Abdomen: normal bowel sounds, non-tender, soft, distended Back: Normal inspection Skin: normal color, warm/dry Extremities: normal range of motion, non-tender, pedal edema Neuro/Psych: no motor/sensory deficits, alert, normal mood/affect, oriented x 3 ICD10 Worksheet Patient Problems: Problems Problem Status Onset CHF (congestive heart failure) Acute Cardiomegaly Acute Pleural effusion Acute Renal insufficiency Acute Shortness of breath Acute Elevated troponin Acute Frequent PVCs Acute chronic disease mgmt/transitional care Acute
[2017-11-30] MEDS: MUPIROCIN 2% 22 GM OINT NS SCH (20:10)
[2017-11-30] MEDS ORDERED: CHLORHEXIDINE GLUC HIBICLENS 118 ML BTL TP SCH (21:00)
[2017-12-01] MEDS: HEPARIN 5,000 UNIT/0.5 ML INJ SC SCH (05:31)
[2017-12-01] MEDS ORDERED: CITRATE DEXTROSE SOLN 500 ML BAG MISC ONE (07:00)
[2017-12-01] MEDS ORDERED: EPINEPHrine 8 MG in NS 250 ML IV ONE (07:00)
[2017-12-01] MEDS ORDERED: AMINOCAPROIC ACID 5 GM/20 ML VIAL IV ONE (07:00)
[2017-12-01] MEDS ORDERED: INSULIN REGULAR HUMAN 100 UNIT in NS 100 ML IV ONE (07:00)
[2017-12-01] MEDS ORDERED: ceFAZolin 2 GM/DEXTROSE 100 ML IV ONE (07:00)
[2017-12-01] MEDS ORDERED: SODIUM BICARBONATE 20 MEQ, LIDOCAINE 1% 10 ML in NORMOSOL-R 1,000 ML MISC ONE (07:00)
[2017-12-01] MEDS ORDERED: VERAPAMIL 5 MG, NITROGLYCERIN 2.5 MG, HEPARIN 500 UNIT, SODIUM BICARBONATE 0.2 MEQ in L... MISC ONE (07:00)
[2017-12-01] MEDS ORDERED: PHENYLEPHRINE HCL 50 MG in NS 250 ML IV ONE (07:00)
[2017-12-01] MEDS ORDERED: MANNITOL 25% 12.5 GM/50 ML VIAL IVP ONE (07:00)
[2017-12-01] MEDS ORDERED: NOREPINEPHRINE BITARTRATE 16 MG in NS 250 ML IV ONE (07:00)
[2017-12-01] MEDS ORDERED: MINERAL OIL 10 ML VIAL ONE ×2 (07:09→09:46)
[2017-12-01] MEDS ORDERED: PAPAVERINE HCL 60 MG/2 ML SDV ONE (07:10)
[2017-12-01] MEDS ORDERED: VERAPAMIL 5 MG/2 ML VIAL ONE (07:10)
[2017-12-01] MEDS ORDERED: MILRINONE/DEXTROSE/100 ML BAG IV ONE (07:29)
[2017-12-01] MEDS ORDERED: PROTAMINE SULFATE 50 MG/5 ML VIAL IVP ONE (07:29)
[2017-12-01] MEDS ORDERED: CALCIUM CHLORIDE 1 GM/10 ML INJ ONE ×2 (07:29→07:31)
[2017-12-01] MEDS ORDERED: NITROGLYCERIN/D5W 50 MG/250 ML BOTTLE IV ONE (07:30)
[2017-12-01] MEDS ORDERED: ADENOSINE 6 MG/2 ML VIAL ONE (07:30)
[2017-12-01] MEDS ORDERED: niCARdipine/NACL/200 ML BAG IV ONE (07:30)
[2017-12-01] MEDS ORDERED: AMIODARONE HCL 150 MG/3 ML VIAL ONE ×2 (07:30→07:31)
[2017-12-01] MEDS ORDERED: ceFAZolin 1 GM VIAL ONE (07:30)
[2017-12-01] MEDS ORDERED: HEPARIN 10,000 UNIT/10 ML MDV (1,000 UNIT/ML) ONE ×2 (07:30→07:31)
[2017-12-01] MEDS ORDERED: DOPamine/DEXTROSE 400 MG/250 ML BAG IV ONE (07:30)
[2017-12-01] MEDS ORDERED: NA BICARBONATE 50 MEQ/50 ML VIAL ONE ×2 (07:30→21:44)
[2017-12-01] MEDS ORDERED: CITRATE DEXTROSE SOLN 500 ML BAG ONE (07:31)
[2017-12-01] MEDS ORDERED: ALBUMIN 5% 250 ML BOTTLE IV ONE ×2 (07:31→13:27)
[2017-12-01] MEDS ORDERED: LIDOCAINE 2% 100 MG/5 ML SYR ONE (07:31)
[2017-12-01] MEDS ORDERED: methylPREDNISolone SOD SUCC 1 GM/8 ML VIAL ONE (07:32)
[2017-12-01] MEDS ORDERED: MAGNESIUM SULFATE 1 GM/2 ML VIAL ONE (07:32)
--- NOTE | 2017-12-01 07:51 | PDHPUP ---
History & Physical Update H&P update statement: This history and physical update is based on an assessment of the patient which was completed after admission or registration (within 24 hours), but prior to the surgery/procedure. H&P update: H&P reviewed & patient examined (s/p 3 kg diuresis. JOSEPH notable for LVEF 20%, mod-sev MR, reduction in TR to mild. Carotid US neg for obstructive disease. Cr stable. VSS.)
[2017-12-01] MEDS ORDERED: MIDAZOLAM 2 MG/2 ML VIAL IVP ONE (08:41)
--- NOTE | 2017-12-01 08:44 | PDANEPAE ---
ANE History of Present Illness here for CABG/MVR/TVR ANE Past Medical History - Cardiovascular History Hx Hypertension: Yes Hx Arrhythmias: Yes Hx Coronary Artery / Peripheral Vascular Disease: Yes Hx CHF / Valvular Disease: Yes - Pulmonary History Hx Oxygen in Use at Home: Yes O2 in Use at Home (L/minute): 2 Hx Sleep Apnea: No Sleep Apnea Screening Result - Last Documented: Positive - Endocrine History Hx Diabetes: No - Renal History Hx Renal Disorders: Yes - Liver History Hx Hepatic Disorders: No - Neurological & Psychiatric Hx Hx Neurological and Psychiatric Disorders: No - Chronic Pain History Chronic Pain: Yes ANE Review of Systems Review of systems is: negative Review of Systems: - Exercise capacity Exercise capacity: <4 METS ANE Patient History - Allergies Allergies/Adverse Reactions: erythromycin base Allergy (Verified 11/24/17 14:14) Vomiting ALL STATINS Allergy (Uncoded 11/24/17 14:14) DIZZINESS - Home Medications Home medications: home medication list seen and reviewed Home Medications: Allopurinol [Allopurinol 100 MG (*)] 200 mg PO DAILY 06/11/17 [Last Taken ] Finasteride [Proscar 5 MG (*)] 5 mg PO DAILY 06/11/17 [Last Taken 11/24/17] Venlafaxine HCl [Venlafaxine 75MG (*)] 75 mg PO DAILY 06/11/17 [Last Taken 11/24] Calcitriol [Calcitriol (*)] 0.25 mcg PO DAILY 11/24/17 [Last Taken 11/24/17] Cholecalciferol Vit D3 [Vitamin D3 (*)] 1,000 units PO DAILY 11/24/17 [Last Taken 11/24/17] Furosemide [Lasix 20 MG (*)] 20 mg PO DAILY 11/24/17 [Last Taken 11/24/17] Herbals/Supplements -Info Only 1 ea PO DAILY 11/24/17 [Last Taken Unknown] Lisinopril [Zestril 40 mg (*)] 40 mg PO DAILY 11/24/17 [Last Taken 11/24/17] Omeprazole 20 mg PO DAILY 11/24/17 [Last Taken 11/24/17] - NPO status NPO Status: no food or drink >8 hours NPO Since - Liquids (Date): 11/30/17 NPO Since - Liquids (Time): 23:55 NPO Since - Solids (Date): 11/30/17 NPO Since - Solids (Time): 23:55 - Smoking Hx Smoking Status: Former smoker ANE Labs/Vital Signs - Labs Result Diagrams: 12/01/17 03:40 12/01/17 03:40 - Vital Signs Vital Signs: reviewed preoperatively; see RN documention for details Blood Pressure: 138/84 Heart Rate: 99 Respiratory Rate: 18 O2 Sat (%): 100 Height: 179.07 cm Weight: 89.6 kg ANE Physical Exam - Airway Neck exam: FROM Mallampati Score: Class 1 - Pulmonary Pulmonary: no respiratory distress - Cardiovascular Cardiovascular: regular rate and rhythym - ASA Status ASA Status: IV ANE Anesthesia Plan Anesthesia Plan: general endotracheal anesthesia (counseled regarding increased risk secondary to comorbidities, pt agrees and wishes to proceed ) Lines/Monitors: central line, JOSEPH
[2017-12-01] MEDS ORDERED: fentaNYL 250 MCG/5 ML INJ ONE ×2 (08:49→08:50)
[2017-12-01] MEDS ORDERED: PROPOFOL/EMULSION 500 MG/50 ML BOTTLE IV ONE (08:51)
[2017-12-01] MEDS ORDERED: KETAMINE 200 MG/20 ML VIAL ONE (08:53)
[2017-12-01] MEDS ORDERED: ePHEDrine SULFATE 25 MG/5 ML SYR ONE ×2 (08:58)
[2017-12-01] MEDS ORDERED: MIDAZOLAM 2 MG/2 ML VIAL ONE (10:09)
[2017-12-01] MEDS: ALLOPURINOL 100 MG TAB PO SCH (10:52)
[2017-12-01] MEDS: ASPIRIN EC 81 MG TAB PO SCH (10:53)
[2017-12-01] MEDS: CALCITRIOL 0.25 MCG CAP PO SCH (10:53)
[2017-12-01] MEDS: FUROSEMIDE 100 MG/10 ML VIAL IVP SCH (10:57)
[2017-12-01] MEDS: FINASTERIDE 5 MG TAB PO SCH (10:57)
[2017-12-01] MEDS: CARVEDILOL 6.25 MG TAB PO SCH (10:57)
--- NOTE | 2017-12-01 13:34 | HOSPPROG ---
Hospitalist Progress Note Assessment/Plan: DIAGNOSES: *Acute systolic heart failure with pulmonary and peripheral edema - Restarted Lasix 80 mg IV BID with net negative 2.7 L over past 24 hours - BUN is continuing to increase as well as C02, will switch to PO Lasix 80 mg BID - Continue to monitor I/O, daily BMP *severe global cardiomyopathy EF 15%, down from 50%, new finding - Continue B-luann, RU-I *Moderate - Severe MR - (mild MR seen in 06/2017, rapid progression thought 2/2 low EF?) - Taken to OR today for valve replacement by CTS *NSVT on cafeteria monitor here, asymptomatic - cont coreg *acute on chronic renal failure with probable cardiorenal component -RU-inhibitor currently held -baseline 2.3 creatinine, was up to 3.0, 2.7 today -Responding well to Lasix as above *Elevated trop - suspect strain in setting of acute HF. No chest pain. Full code DVT PPLX - VITALIY Objective: Vital Signs Temp Pulse Resp BP Pulse Ox 36.6 C 99 18 138/84 H 100 12/01/17 08:17 12/01/17 08:44 12/01/17 08:44 12/01/17 08:44 12/01/17 08:44 Microbiology 11/24/17 18:55 Blood Culture - Final Blood 11/24/17 18:45 Blood Culture - Final Blood Laboratory Results 12/01/17 03:40 12/01/17 03:40 11/30/17 12/01/17 12/02/17 05:59 05:59 05:59 Intake Total 640 1100 Output Total 2100 9387 250 Balance -1460 -2721 -250 PT 14.7 SEC (12.0-15.0) 11/24/17 12:25 INR 1.13 (0.83-1.16) 11/24/17 12:25 ICD10 Worksheet Patient Problems: Problems Problem Status Onset CHF (congestive heart failure) Acute Cardiomegaly Acute Pleural effusion Acute Renal insufficiency Acute Shortness of breath Acute Elevated troponin Acute Frequent PVCs Acute chronic disease mgmt/transitional care Acute
[2017-12-01] MEDS ORDERED: MEPERIDINE 25 MG/0.5 ML AMP IVP PRN (13:48)
[2017-12-01] MEDS ORDERED: D50W 25 GM/50 ML SYR IVP PRN (13:48)
[2017-12-01] MEDS ORDERED: LACTULOSE 20 GM/30 ML UDCUP PO PRN (13:48)
[2017-12-01] MEDS ORDERED: CEPACOL LOZENGE PO PRN (13:48)
[2017-12-01] MEDS ORDERED: ACETAMINOPHEN 650 MG SUPP PR PRN (13:48)
[2017-12-01] MEDS ORDERED: POLYETHYLENE GLYCOL 3350 17 GM PKT PO PRN (13:48)
[2017-12-01] MEDS ORDERED: BISACODYL 10 MG SUPP PR PRN (13:48)
[2017-12-01] MEDS ORDERED: INSULIN REGULAR HUMAN 100 UNIT in NS 100 ML IV SCH (14:00)
[2017-12-01] MEDS ORDERED: NS 1,000 ML IV SCH (14:00)
[2017-12-01] MEDS ORDERED: AMIODARONE HCL 150 MG/100 ML BAG (1.5 MG/ML) IV ONE (14:08)
--- NOTE | 2017-12-01 14:25 | GOP ---
[f rep st] OPERATIVE REPORT DATE OF OPERATION: 12/01/2017 SURGEON: Jimbo Patel DO FOUNTAIN SERVER: Xiomara Arriola, PAC ANESTHESIA: Sulaiman Dhillon MD. PREOPERATIVE DIAGNOSIS: 1. Class IV congestive heart failure. 2. Dilated cardiomyopathy of valvular origin. 3. Arteriosclerotic heart disease. 4. Chronic renal failure. POSTOPERATIVE DIAGNOSIS: 1. Class IV congestive heart failure. 2. Dilated cardiomyopathy of valvular origin. 3. Arteriosclerotic heart disease. 4. Chronic renal failure. PROCEDURE PERFORMED: 1. Coronary bypass grafting x4 with left internal mammary artery to the left anterior descending, sa phenous vein graft to the diagonal, saphenous vein graft to the lateral circumflex, and saphenous vei n graft to the posterior descending artery. 2. Ligate left atrial appendage with atrial clip #40. 3. Mitral ring annuloplasty with a #30 Physio ring. FINDINGS: Patient presented with class IV congestive heart failure and was noted to have ejection fr action of 15%-20% with severe central mitral regurgitation and severe 3-0 vessel coronary artery dise ase. He was offered high-risk surgery. He also had a baseline creatinine of 2.7 to 3 on various ronny dies. DESCRIPTION OF PROCEDURE: He consented for surgery and brought to the operating room, intubated, mon itoring lines were placed. He was prepped and draped in sterile classical manner. Sternotomy was performed. Mammary was harvested. Vein was harvested endoscopically by Xiomara Arriola who first assisted throughout the procedure. He was then cannulated with echo guidance. Bypass was begu n. Cardioplegic arrest was obtained with antegrade cardioplegia and retrograde cardioplegia, topical hyp othermia, and systemic cooling. Distal grafts were all performed with proximal anastomoses with the cross-clamp on. Venous conduit was of good quality, as was the mammary. Distal targets were all goo d quality. A 40 mm clip was placed across the left atrial appendage, which was free of thrombus. We then expose d the mitral valve through the right superior pulmonary vein. The valve appeared to be predominantly annular dilatation with some elongation of chordae to both leaflets. An annuloplasty was placed aft er sizing appropriately with no regurgitation on distention of the ventricle. The left atrium was cl osed. The patient had CO2 infused throughout the procedure. His cross-clamp was removed in Trendelenburg w ith ascending aortic vent and intermittent aspiration of the LV apex until no further air was identif ied. He was then paced and weaned from bypass on moderate dose inotropes. Heparin was reversed with protamine. There was no regurgitation on the echo. The LV function appeared to be at least 25% wit h no evidence of segmental dysfunction. RV function appeared to be about the same. Thymic fat and p ericardium were closed with 4 pacing wires. 2 pleural and 1 mediastinal drain. The chest was closed in standard fashion. Patient was returned to ICU in critical condition. /[id number]/MODL
--- NOTE | 2017-12-01 14:31 | POSTANESTH ---
Post Anesthetic Evaluation Cardiovascular Status: Tx Hyper/Hypo-tension (on epi and levophed) Respiratory Status: Requires Airway Assist, Other, See Comment (intubated and sedated) Level of Consciousness/Mental Status: Unconscious Pain Control: Adequate, Prn Tx Ordered Nausea/Vomiting Control: Adequate, Prn Tx Ordered Notes: critical but stable condition
--- NOTE | 2017-12-01 14:34 | ASMTCMCOM ---
CM Note CM Note Notes: Pt is having valve surgery today w/ Dr. Patel. Needs are TBD at this time. CM will follow recommendations by Dr. Patel and his team. CM to follow. Plan: TBD Date Signed: 12/01/2017 02:34 PM Electronically Signed By:MONIQUE Currie
--- NOTE | 2017-12-01 14:53 | CPEKG ---
Test Reason : OPEN Blood Pressure : / mmHG Vent. Rate : 087 BPM Atrial Rate : 087 BPM P-R Int : 238 ms QRS Dur : 095 ms QT Int : 415 ms P-R-T Axes : 098 102 045 degrees QTc Int : 500 ms Sinus rhythm Ventricular bigeminy First degree AVB Right axis deviation Borderline prolonged QT interval Confirmed by Jim Rivas ([id number]) on 12/01/2017 2:52:56 PM Referred By: Confirmed By:Jim Rivas
[2017-12-01] MEDS ORDERED: FUROSEMIDE 80 MG TAB PO SCH (15:00)
[2017-12-01] MEDS: VENLAFAXINE HCL 75 MG TAB PO SCH (15:11)
[2017-12-01] MEDS ORDERED: POTASSIUM Cl (KCl) 20 MEQ/50 ML BAG IV ONE (15:17)
[2017-12-01] MEDS: MUPIROCIN 2% 22 GM OINT NS SCH ×2 (15:27→21:52)
[2017-12-01] MEDS: PANTOPRAZOLE SODIUM 40 MG TAB PO SCH (15:27)
[2017-12-01] MEDS ORDERED: AMIODARONE HCL 100 ML IV ONE (15:30)
--- NOTE | 2017-12-01 15:52 | GCON ---
[f rep st] CONSULTATION LAW INSTRUCTOR CONSULTATION Patient is examined postoperatively after receiving coronary artery bypass graft x4, ligation of left atrial appendage with atrial clip, and a mitral ring annuloplasty. HISTORY OF PRESENT ILLNESS: The patient is a 77-year-old white male with a past medical history incl uding chronic renal insufficiency, tobacco use, and hypertension. He was initially admitted on 11/24 with complaints of breathlessness. He was found to be in acute congestive heart failure at that senait e. Workup ensued, patient was stabilized, and he subsequently went to surgery. Currently, patient i s sedated and on mechanical ventilation. All history is gleaned from the medical record. REVIEW OF SYSTEMS: Ten-point review of systems was attempted but unable to be performed secondary to sedation and mechanical ventilation. PAST MEDICAL HISTORY: Again significant for chronic renal insufficiency, hypertension, and SVT. ALLERGIES: Erythromycin and all statins. SOCIAL HISTORY: Previous heavy smoker, none for many years. No significant alcohol use. FAMILY HISTORY: Noncontributory. PHYSICAL EXAM: VITAL SIGNS: Blood pressure 125/54, pulse 80, respirations 14. Temperature, he is a febrile. Oxygen saturation is 97% on mechanical ventilation. GENERAL: He is a thin, but well-develo ped elderly white male who is resting comfortably, in no acute distress. HEENT: Eyes: PERRL, EOMI. Throat: Endotracheal tube is in good position. NECK: Supple. There is no cervical adenopathy. HEART: Regular rate and rhythm, with a 2/6 systolic murmur, left sternal border, without radiation. LUNGS: Diminished breath sounds. Mild prolongation of expiratory phase but no wheeze. ABDOMEN: S oft, nontender. Bowel sounds are present in all 4 quadrants. EXTREMITIES: No clubbing, cyanosis, o r edema. LABORATORY DATA: White count is 6.3, hemoglobin 11, hematocrit 37. Platelet count is 218. Sodium 1 43, potassium 3.7, chloride white 108. CO2 is 28. BUN is 81. Creatinine is 2.7. Glucose is 105. Arterial blood gas, pH 7.35, pCO2 44, pO2 of 68, bicarb 25. Oxygen saturation is 93%. IMPRESSION: 1. Coronary artery disease. 2. Class 4 congestive heart failure. 3. Status post coronary bypass graft with ligation of left atrial appendage and a mitral ring annulo plasty. 4. Acute respiratory failure secondary to above. 5. History of hypertension. 6. History of chronic renal insufficiency. RECOMMENDATIONS: 1. Wean from mechanical ventilation as tolerated. 2. DVT and PE prophylaxis, holding anticoagulation for now. 3. Stress ulcer prophylaxis. 4. Aggressive blood sugar control. 5. Close cardiovascular monitoring. 6. Will keep a close eye on renal function. 7. Early ambulation. 8. PT and OT. /[id number]/MODL
--- NOTE | 2017-12-01 15:56 | SOAPPROG ---
SOAP Progress Note Assessment/Plan: Assessment: 1. crf: creat bump with diuresis and post-cath but since improved and near previous b/l. Decent uo post-op, will follow course. Would not consider adding even low-dose acei/arb until renal fxn clearly stable. Pt well aware of risk of acute or permanent hd post-op but currently looking fairly good. 2. chf: now post-op from cabg/mv repair. Vol status looks very good. Weaning pressors. 3. anemia: mild, stable. Plan: 12/01/17 15:49 12/01/17 15:57 Subjective: s/p 4v CABG + MV annuloplasty earlier today. Remains vented, on pressors but stable overall. Objective: Vital Signs Temp Pulse Resp BP Pulse Ox 36.4 C 80 14 125/54 H 97 12/01/17 14:00 12/01/17 15:00 12/01/17 15:00 12/01/17 15:00 12/01/17 15:00 Laboratory Results 12/01/17 03:40 12/01/17 03:40 11/30/17 12/01/17 12/02/17 05:59 05:59 05:59 Intake Total 640 1100 Output Total 2100 8103 747 Balance -4068 -5262 -745 PT 14.7 SEC (12.0-15.0) 11/24/17 12:25 INR 1.13 (0.83-1.16) 11/24/17 12:25 Physical Exam - Physical Exam General Appearance: other (intubated but follows commands) Respiratory: lungs clear (anteriorly) Cardiac/Chest: regular rate, rhythm, extra beats Abdomen: soft, other (protuberant) Extremities: pedal edema (none), other (feet cool but pink; hands warm) ICD10 Worksheet Patient Problems: Problems Problem Status Onset Acute blood loss anemia Acute CHF (congestive heart failure) Acute Cardiomegaly Acute Pleural effusion Acute Renal insufficiency Acute S/P CABG x 4 Acute ~12/01/17 Shortness of breath Acute Status post mitral valve annuloplasty Acute ~12/01/17 Elevated troponin Acute Frequent PVCs Acute chronic disease mgmt/transitional care Acute
[2017-12-01] MEDS: ALBUMIN 5% 250 ML IV PRN ×2 (15:59→18:32)
[2017-12-01] MEDS: fentaNYL 100 MCG/2 ML INJ IVP PRN ×2 (16:30→21:49)
[2017-12-01] MEDS: METOCLOPRAMIDE 10 MG/2 ML VIAL IVP PRN (20:20)
[2017-12-01] MEDS: ONDANSETRON 4 MG/2 ML VIAL IVP PRN (20:20)
[2017-12-01] MEDS ORDERED: FAMOTIDINE 20 MG/NACL 50 ML IV SCH (21:00)
[2017-12-01] MEDS ORDERED: CHLORHEXIDINE GLUCONATE 15 ML UDL PO SCH (21:00)
[2017-12-01] MEDS ORDERED: SODIUM BICARBONATE 50 MEQ/50 ML SYR ONE (21:44)
[2017-12-01] MEDS ORDERED: SODIUM BICARBONATE 50 MEQ/50 ML SYR IVP ONE (22:00)
[2017-12-02] MEDS ORDERED: EPINEPHrine 8 MG in NS 250 ML IV SCH (04:15)
[2017-12-02 05:27] LABS: PLATELET COUNT 171 10^3/uL (150-400)
[2017-12-02] MEDS: ONDANSETRON 4 MG/2 ML VIAL IVP PRN (05:51)
[2017-12-02] MEDS: METOCLOPRAMIDE 10 MG/2 ML VIAL IVP PRN (05:51)
[2017-12-02] MEDS ORDERED: SODIUM BICARBONATE 50 MEQ/50 ML SYR ONE (06:18)
[2017-12-02] MEDS ORDERED: FUROSEMIDE 100 MG/10 ML VIAL ONE (06:26)
[2017-12-02] MEDS: HEPARIN 5,000 UNIT/0.5 ML INJ SC SCH ×3 (06:36→21:44)
[2017-12-02] MEDS ORDERED: FUROSEMIDE 40 MG/4 ML VIAL IVP ONE (06:45)
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
[2017-12-02 07:30] LABS: INR 1.17 (0.83-1.16); PROTIME(PATIENT) 15.1 SEC (12.0-15.0)
[2017-12-02] MEDS: HYDROCODONE/APAP 5/325 TAB PO PRN ×4 (08:37→21:43)
[2017-12-02] MEDS: CALCITRIOL 0.25 MCG CAP PO SCH (08:43)
[2017-12-02] MEDS: ASPIRIN EC 81 MG TAB PO SCH (08:43)
[2017-12-02] MEDS ORDERED: ASPIRIN 81 MG CHEWABLE TAB TUBE PRN (09:00)
--- NOTE | 2017-12-02 09:07 | PDINTPN ---
Director Employment Progress Note Assessment/Plan: Assessment/plan: * Coronary artery disease * Status post coronary bypass Jhonny and mitral ring annuloplasty * Respiratory-stable off mechanical ventilation -will wean FiO2 as tolerated * Congestive heart failure * History of syncope * Chronic renal insufficiency-creatinine up. Urine output picking up with Lasix -follow BUN and creatinine closely -consider nephrology consult * VT prophylaxis * Pain-well controlled -continue current pain medications * Stress ulcer prophylaxis * PT/OT * Speech to see Subjective: Sitting up in chair. Comfortable. Pain well tolerated. Denies any breathlessness Objective: Vital Signs Temp Pulse Resp BP Pulse Ox 36.5 C 107 H 14 114/72 94 12/02/17 01:00 12/02/17 08:00 12/02/17 08:00 12/02/17 08:00 12/02/17 08:00 Laboratory Results 12/02/17 05:15 12/02/17 05:15 12/01/17 12/02/17 12/03/17 05:59 05:59 05:59 Intake Total 1100 2392 Output Total 3825 1860 Balance -2725 532 PT 15.1 SEC (12.0-15.0) H 12/02/17 07:00 INR 1.17 (0.83-1.16) H 12/02/17 07:00 Chest x-ray by myself. Central line in good position. Chest tube in good position. Mild pulmonary edema is seen - Time Spent With Patient Time Spent With Patient: 35 min of time spent with patient, over 1/2 involved with coordination of care or counseling. Case discussed with nursing Physical Exam - Physical Exam General Appearance: alert, no apparent distress EENT: PERRL/EOMI Neck: non-tender, full range of motion, supple, normal inspection Respiratory: prolonged expiration, No respiratory distress, No wheezing Cardiac/Chest: normal peripheral pulses, regular rate, rhythm, systolic murmur Peripheral Pulses: 2+: carotid (R), carotid (L), femoral (R), femoral (L), dorsalis-pedis (R), dorsalis-pedis (L) Abdomen: normal bowel sounds, non-tender, soft Male Genitalia: deferred Rectal: deferred Extremities: non-tender Neuro/Psych: no motor/sensory deficits, alert, normal mood/affect, oriented x 3 ICD10 Worksheet Patient Problems: Problems Problem Status Onset Acute blood loss anemia Acute CHF (congestive heart failure) Acute Cardiomegaly Acute Pleural effusion Acute S/P CABG x 4 Acute ~12/01/17 Shortness of breath Acute Status post mitral valve annuloplasty Acute ~12/01/17 CKD (chronic kidney disease) stage 4, GFR 15-29 ml/min Chronic Elevated troponin Acute Frequent PVCs Acute chronic disease mgmt/transitional care Acute
[2017-12-02] MEDS: MUPIROCIN 2% 22 GM OINT NS SCH ×2 (10:16→21:43)
--- NOTE | 2017-12-02 10:30 | SOAPPROG ---
MARIBEL Progress Note Assessment/Plan: Assessment: 1. JENN on CKD Pt has done pretty well perioperatively, given his LV function entering the surgery. He has excellent UO, good volume status, and he is not acidemic. His K is mildly elevated. He is on pressors, and hopefully they can be weaned today. It would be ideal to titrate off of epi if tolerated. We will follow with CTS. If Cr and K worsen, he would need CRRT. I reviewed this with patient and family. Plan: 11/29/17 09:11 11/29/17 09:16 12/02/17 10:27 Subjective: Pt smiling, alert Objective: Vital Signs Temp Pulse Resp BP Pulse Ox 36.5 C 109 H 13 116/53 L 97 12/02/17 01:00 12/02/17 10:00 12/02/17 10:00 12/02/17 10:00 12/02/17 10:00 Laboratory Results 12/02/17 05:15 12/02/17 05:15 12/01/17 12/02/17 12/03/17 05:59 05:59 05:59 Intake Total 1100 2392 Output Total 3825 1860 490 Balance -2725 532 -490 PT 15.1 SEC (12.0-15.0) H 12/02/17 07:00 INR 1.17 (0.83-1.16) H 12/02/17 07:00 Physical Exam - Physical Exam General Appearance: no apparent distress Respiratory: lungs clear Cardiac/Chest: regular rate, rhythm Abdomen: soft Male Genitalia: other (cooley) Extremities: other (warm, perfused) Neuro/Psych: alert ICD10 Worksheet Patient Problems: Problems Problem Status Onset Acute blood loss anemia Acute CHF (congestive heart failure) Acute Cardiomegaly Acute Pleural effusion Acute S/P CABG x 4 Acute ~12/01/17 Shortness of breath Acute Status post mitral valve annuloplasty Acute ~12/01/17 CKD (chronic kidney disease) stage 4, GFR 15-29 ml/min Chronic Elevated troponin Acute Frequent PVCs Acute chronic disease mgmt/transitional care Acute
[2017-12-02] MEDS: VENLAFAXINE HCL 75 MG TAB PO SCH (11:46)
[2017-12-02] MEDS ORDERED: ceFAZolin 2 GM/DEXTROSE 100 ML IV SCH (13:00)
[2017-12-02] MEDS ORDERED: SODIUM POLY SULF 15 GM/60 ML BOTTLE PO ONE ×2 (16:00→23:45)
[2017-12-02] MEDS: FUROSEMIDE 100 MG in D5W 100 ML IV SCH (16:09)
[2017-12-02] MEDS: NOREPINEPHRINE BITARTRATE 16 MG in NS 250 ML IV SCH (16:20)
--- NOTE | 2017-12-02 16:34 | ASMTCMCOM ---
CM Note CM Note Notes: Spoke with patient's nurse who states patient has a son, Sam and daughter, Courtney and they will be back tomorrow. Still awaiting therapy evals as patient is not yet ready for PT due to femoral artery lines. Will begin discussion with patient's kids tomorrow to get their preferences regarding any rehab facilities. Also awaiting Dr. Patel's direction for d/c plan. CM will follow. Date Signed: 12/02/2017 04:33 PM Electronically Signed By:Geneva Reis LCSW
[2017-12-03] MEDS: HYDROCODONE/APAP 5/325 TAB PO PRN ×2 (01:29→10:13)
[2017-12-03] MEDS: HEPARIN 5,000 UNIT/0.5 ML INJ SC SCH ×3 (05:28→21:20)
[2017-12-03] MEDS ORDERED: fentaNYL 100 MCG/2 ML INJ IV PRN (05:30)
[2017-12-03] MEDS ORDERED: fentaNYL 100 MCG/2 ML INJ ONE (05:35)
[2017-12-03] MEDS ORDERED: AMIODARONE HCL 150 MG/100 ML BAG (1.5 MG/ML) IV ONE (05:55)
[2017-12-03] MEDS ORDERED: AMIODARONE HCL 100 ML IV ONE (06:00)
[2017-12-03 06:08] LABS: PLATELET COUNT 167 10^3/uL (150-400)
[2017-12-03 06:15] LABS: INR 1.18 (0.83-1.16); PROTIME(PATIENT) 15.2 SEC (12.0-15.0)
--- NOTE | 2017-12-03 06:45 | CPEKG ---
Test Reason : OPEN Blood Pressure : / mmHG Vent. Rate : 117 BPM Atrial Rate : 117 BPM P-R Int : 189 ms QRS Dur : 095 ms QT Int : 341 ms P-R-T Axes : 078 092 -87 degrees QTc Int : 476 ms Sinus tachycardia Multiple ventricular premature complexes Probable left atrial enlargement Right axis deviation Nonspecific T abnormalities, lateral leads Borderline prolonged QT interval Confirmed by Yrn Baumann ([id number]) on 12/03/2017 6:45:15 AM Referred By: Confirmed By:Yrn Baumann
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
[2017-12-03] MEDS ORDERED: oxyCODONE IR 5 MG TAB PO PRN (07:42)
[2017-12-03] MEDS: CALCITRIOL 0.25 MCG CAP PO SCH (07:45)
[2017-12-03] MEDS: VENLAFAXINE HCL 75 MG TAB PO SCH (07:46)
[2017-12-03] MEDS: ASPIRIN EC 81 MG TAB PO SCH (07:46)
--- NOTE | 2017-12-03 08:33 | SOAPPROG ---
SOAP Progress Note Assessment/Plan: Assessment: JENN post CV surgery, not oliguric hyperkalemia better today, kayex given yesterday POD 2 CABG x4, MV ring annuloplasty CHF low EF about 15% post operative anemia Plan: no urgent/emergent renal replacement needs getting arterial line out today encouraged spirometry encouraged nutrition if UOP slows, would consider bolus loop diuretic (on continuous infusion) unfortunately, family needs to put his dog down today assess daily dialysis needs 12/03/17 08:28 Subjective: up to chair slept OK last night enjoying his applesauce spirits good this morning chest is sore, breathing OK occasional minimally productive cough (using spirometer) pain is manageable Objective: Vital Signs Temp Pulse Resp BP Pulse Ox 37.1 C 103 H 20 134/55 H 96 12/02/17 18:00 12/03/17 07:47 12/03/17 07:47 12/03/17 07:47 12/03/17 07:47 Laboratory Results 12/03/17 05:40 12/03/17 05:40 12/02/17 12/03/17 12/04/17 05:59 05:59 05:59 Intake Total 2392 1587 200 Output Total 1860 1380 100 Balance 532 207 100 PT 15.2 SEC (12.0-15.0) H 12/03/17 05:40 INR 1.18 (0.83-1.16) H 12/03/17 05:40 Physical Exam - Physical Exam General Appearance: alert Neck: other (RIJ cath, +JVD) Respiratory: crackles, wheezing, No rhonchi, No pleural rub Cardiac/Chest: regular rate, rhythm, edema, No friction rub Abdomen: non-tender, soft (quiet, tolerating PO) Skin: other (warm) Extremities: pedal edema Neuro/Psych: alert, normal mood/affect, oriented x 3 ICD10 Worksheet Patient Problems: Problems Problem Status Onset Acute blood loss anemia Acute CHF (congestive heart failure) Acute Cardiomegaly Acute Pleural effusion Acute S/P CABG x 4 Acute ~12/01/17 Shortness of breath Acute Status post mitral valve annuloplasty Acute ~12/01/17 CKD (chronic kidney disease) stage 4, GFR 15-29 ml/min Chronic Elevated troponin Acute Frequent PVCs Acute chronic disease mgmt/transitional care Acute
[2017-12-03] MEDS: MUPIROCIN 2% 22 GM OINT NS SCH (08:59)
--- NOTE | 2017-12-03 09:09 | PDINTPN ---
[employer]i [employer]er Progress Note Assessment/Plan: Assessment/plan: * Coronary artery disease * Status post coronary bypass Jhonny and mitral ring annuloplasty * Respiratory-stable off mechanical ventilation -will wean FiO2 as tolerated * Congestive heart failure * History of syncope * Chronic renal insufficiency-creatinine up to 4.2. Now on Lasix drip -follow BUN and creatinine closely -per Nephrology * VT prophylaxis * Pain-well controlled -continue current pain medications * Stress ulcer prophylaxis * PT/OT * Speech to see Subjective: Sitting up in chair. Comfortable. Pain is reasonably well tolerated. Awake and alert Objective: Vital Signs Temp Pulse Resp BP Pulse Ox 37.1 C 103 H 20 134/55 H 96 12/02/17 18:00 12/03/17 07:47 12/03/17 07:47 12/03/17 07:47 12/03/17 07:47 Laboratory Results 12/03/17 05:40 12/03/17 05:40 12/02/17 12/03/17 12/04/17 05:59 05:59 05:59 Intake Total 2392 1587 200 Output Total 1860 1380 100 Balance 532 207 100 PT 15.2 SEC (12.0-15.0) H 12/03/17 05:40 INR 1.18 (0.83-1.16) H 12/03/17 05:40 - Time Spent With Patient Time Spent With Patient: 35 min of time spent with patient, over 1/2 involved with coordination of care counseling. Case discussed with nursing Physical Exam - Physical Exam General Appearance: alert, no apparent distress EENT: PERRL/EOMI Neck: non-tender, full range of motion, supple, normal inspection Respiratory: chest non-tender, lungs clear, normal breath sounds, prolonged expiration Cardiac/Chest: normal peripheral pulses, regular rate, rhythm, systolic murmur Peripheral Pulses: 2+: carotid (R), carotid (L), femoral (R), femoral (L), dorsalis-pedis (R), dorsalis-pedis (L) Abdomen: normal bowel sounds, non-tender, soft Male Genitalia: deferred Rectal: deferred Skin: normal color, warm/dry Extremities: normal range of motion, non-tender, normal inspection, normal capillary refill Neuro/Psych: no motor/sensory deficits, alert, normal mood/affect, oriented x 3 ICD10 Worksheet Patient Problems: Problems Problem Status Onset Acute blood loss anemia Acute CHF (congestive heart failure) Acute Cardiomegaly Acute Pleural effusion Acute S/P CABG x 4 Acute ~12/01/17 Shortness of breath Acute Status post mitral valve annuloplasty Acute ~12/01/17 CKD (chronic kidney disease) stage 4, GFR 15-29 ml/min Chronic Elevated troponin Acute Frequent PVCs Acute chronic disease mgmt/transitional care Acute
[2017-12-03] MEDS: PANTOPRAZOLE SODIUM 40 MG TAB PO SCH (10:14)
[2017-12-03] MEDS: FINASTERIDE 5 MG TAB PO SCH (10:15)
[2017-12-03] MEDS: INSULIN LISPRO 100 UNIT/ML SC SCH ×2 (11:54→17:55)
[2017-12-03] MEDS ORDERED: AMIODARONE A.FIB-LOAD DOSE(ORDER 1/3) PREMIX IV ONE (12:00)
[2017-12-03] MEDS ORDERED: AMIODARONE A.FIB-6HR INFSN (ORDER 2/3) PREMIX IV ONE (12:00)
[2017-12-03] MEDS ORDERED: AMIODARONE A.FIB-18HR INFSN (ORDER 3/3) IV ONE (12:00)
[2017-12-03] MEDS: FUROSEMIDE 100 MG in D5W 100 ML IV SCH ×2 (12:24→23:11)
--- NOTE | 2017-12-03 14:51 | HOSPPROG ---
Hospitalist Progress Note Assessment/Plan: # DM2 - will treat with insulin for now, consider changing to PO meds when taking better PO - start glargine 7 - cont SSI lispro # goals of care - need to continue to discuss with patient, family and all care providers based on his recovery Subjective: asked by Dr Patel to see patient again given DM. dog was put down today - he appears withdrawn; discussed with his daughter - she thinks he may give up on life Objective: Vital Signs Temp Pulse Resp BP Pulse Ox 36.8 C 85 17 102/45 L 94 12/03/17 09:00 12/03/17 13:00 12/03/17 13:00 12/03/17 13:00 12/03/17 13:00 Laboratory Results 12/03/17 05:40 12/03/17 14:10 12/02/17 12/03/17 12/04/17 05:59 05:59 05:59 Intake Total 2392 1587 300 Output Total 1860 1380 240 Balance 532 207 60 PT 15.2 SEC (12.0-15.0) H 12/03/17 05:40 INR 1.18 (0.83-1.16) H 12/03/17 05:40 - Time Spent With Patient Time Spent with Patient: greater than 25 minutes Time Spent with Patient: Greater than 25 minutes spent on this patients care, greater than 50% of time spent counseling, educating, and coordinating care regarding the above mentioned plan. - Physical Exam Constitutional: not in pain, other (resting comfortably) ICD10 Worksheet Patient Problems: Problems Problem Status Onset CKD (chronic kidney disease) stage 4, GFR 15-29 ml/min Chronic Acute blood loss anemia Acute Status post mitral valve annuloplasty Acute ~12/01/17 S/P CABG x 4 Acute ~12/01/17 chronic disease mgmt/transitional care Acute Frequent PVCs Acute CHF (congestive heart failure) Acute Elevated troponin Acute Pleural effusion Acute Cardiomegaly Acute Shortness of breath Acute
[2017-12-03] MEDS ORDERED: WARFARIN SODIUM 2.5 MG TAB PO ONE (16:00)
[2017-12-03] MEDS: AMIODARONE HCL 200 ML IV SCH (17:55)
[2017-12-03] MEDS ORDERED: ALBUMIN 5% 500 ML IV ONE (18:30)
[2017-12-03] MEDS: SENNOSIDES/DOCUSATE SODIUM TAB PO SCH (21:20)
[2017-12-04] MEDS: AMIODARONE HCL 200 ML IV SCH ×2 (04:25→14:47)
[2017-12-04 04:38] LABS: PLATELET COUNT 155 10^3/uL (150-400)
[2017-12-04 05:07] LABS: INR 1.11 (0.83-1.16); PROTIME(PATIENT) 14.5 SEC (12.0-15.0)
[2017-12-04] MEDS: HEPARIN 5,000 UNIT/0.5 ML INJ SC SCH ×3 (05:42→21:55)
--- NOTE | 2017-12-04 07:25 | SOAPPROG ---
SOAP Progress Note Assessment/Plan: Assessment: POD#3 CABG x 4 (DOMINGUEZ-LAD, SV-D1, SV-OM1, SV-PDA), EVH LLE, MVA #30 physio ring, prophylactic AtriClip ligation left atrial appendage Severe CAD - Fully revascularized with CABG. Secondary prevention with baby ASA , BB as allowed by BP, and hypolipidemic as per cards (hx statin intolerance). Progressive MR - Annular dilatation amenable to ring annuloplasty. Antithrombotic prophylaxis with Coumadin, target INR 2-3, duration 3 mo. 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 Repair deferred. Surveillance per cards. Dilated cardiomyopathy with LVEF 15-20% and acute class IV sCHF - Improved BiV systolic fx (LVEF 30-40%) post revasc on inotropic support. Extubated evening of surgery without incident. Successfully weaned off epi POD#1. Levo wean in progress. Postop PAF - Hx NSVT. Postop rhythm sinus w freq PVCs and salvos of NSVT and PAF. Started on amio. [id number] score of 6. Antithrombotic prophylaxis with Coumadin as per MVA. Acute expected blood loss anemia with mild coagulopathy - Stable. No evidence active bleeding. VTE prophylaxis with SQ hep/SCDs pending INR > 1.7. JENN on CKD4 - Baseline Cr 2-2.3. Steady climb in Cr and K early postop. Adequate UOP on lasix gtt. K responsive to Kayexalate. Nephrology following. DM2 - New dx by preop A1c of 7.2%. Longstanding hx prediabetes. Postop hyperglycemia managed with insulin gtt. Transition to SSI +/- OHAs as per hospitalist. Plan: Transfuse 1u PRBC. Target CVP > 20. Wean Levo to SBP > 100. Cont lasix gtt at 10 mg/h. Cont IV amio at 0.5 mg/min. Remove TCPWs and ant mediastinal drain. Baseline postop echo. Inc coumadin to 5 mg today. 12/04/17 07:20 Subjective: Weak and tired. Min appetite. Adequate analgesia. Objective: Vital Signs Temp Pulse Resp BP Pulse Ox 36.5 C 90 18 122/49 H 91 L 12/04/17 04:00 12/04/17 06:00 12/04/17 06:00 12/04/17 06:00 12/04/17 06:00 Laboratory Results 12/04/17 04:30 12/04/17 04:30 12/03/17 12/04/17 12/05/17 05:59 05:59 05:59 Intake Total 1587 1940.7 Output Total 1380 1045 Balance 207 895.7 PT 14.5 SEC (12.0-15.0) 12/04/17 04:45 INR 1.11 (0.83-1.16) 12/04/17 04:45 Levo at 4 mcg Physical Exam - Physical Exam General Appearance: alert, no apparent distress Respiratory: lungs clear (grossly), other (blakes x 3 to bulb suction, serosang drainage) Cardiac/Chest: regular rate, rhythm (freq PACs and PVCs), other (Sternotomy and LLE venotomy CDI. A&V wires intact.) Abdomen: normal bowel sounds, non-tender, soft Skin: warm/dry Extremities: swelling (1+ ) ICD10 Worksheet Patient Problems: Problems Problem Status Onset Acute blood loss anemia Acute CHF (congestive heart failure) Acute Cardiomegaly Acute Pleural effusion Acute S/P CABG x 4 Acute ~12/01/17 Shortness of breath Acute Status post mitral valve annuloplasty Acute ~12/01/17 CKD (chronic kidney disease) stage 4, GFR 15-29 ml/min Chronic Elevated troponin Acute Frequent PVCs Acute chronic disease mgmt/transitional care Acute
[2017-12-04] MEDS: NOREPINEPHRINE BITARTRATE 16 MG in NS 250 ML IV SCH (07:38)
[2017-12-04] MEDS: FUROSEMIDE 100 MG in D5W 100 ML IV SCH ×2 (07:39→20:30)
[2017-12-04] MEDS: SENNOSIDES/DOCUSATE SODIUM TAB PO SCH ×2 (09:22→21:54)
[2017-12-04] MEDS: HYDROCODONE/APAP 5/325 TAB PO PRN ×2 (09:22→14:58)
[2017-12-04] MEDS: FINASTERIDE 5 MG TAB PO SCH (09:22)
[2017-12-04] MEDS: PANTOPRAZOLE SODIUM 40 MG TAB PO SCH (09:22)
[2017-12-04] MEDS: ASPIRIN EC 81 MG TAB PO SCH (09:22)
[2017-12-04] MEDS: VENLAFAXINE HCL 75 MG TAB PO SCH (09:23)
[2017-12-04] MEDS: CALCITRIOL 0.25 MCG CAP PO SCH (09:23)
--- NOTE | 2017-12-04 09:23 | PDINTPN ---
Clearing Distribution Clerk Progress Note Assessment/Plan: Assessment/plan: * Coronary artery disease * Status post coronary bypass Jhonny and mitral ring annuloplasty -wean off pressors as tolerated * Respiratory-stable off mechanical ventilation -will wean FiO2 as tolerated * Congestive heart failure * History of syncope * Chronic renal insufficiency-creatinine up to 5.7, but potassium staying low -follow BUN and creatinine closely -per Nephrology * VT prophylaxis * Pain-well controlled -continue current pain medications * Stress ulcer prophylaxis * PT/OT * Speech to see Subjective: Complains of difficulty speaking secondary to weakness. Pain well tolerated. Objective: Vital Signs Temp Pulse Resp BP Pulse Ox 36.5 C 96 20 104/38 L 93 12/04/17 04:00 12/04/17 08:00 12/04/17 08:00 12/04/17 08:00 12/04/17 08:00 Laboratory Results 12/04/17 08:40 12/04/17 04:30 12/03/17 12/04/17 12/05/17 05:59 05:59 05:59 Intake Total 1587 1940.7 Output Total 1380 1045 Balance 207 895.7 PT 14.5 SEC (12.0-15.0) 12/04/17 04:45 INR 1.11 (0.83-1.16) 12/04/17 04:45 - Time Spent With Patient Time Spent With Patient: 35 min of time spent with patient, over 1/2 involved with coordination of care or counseling. Case discussed with surgery and nursing Physical Exam - Physical Exam General Appearance: alert, no apparent distress EENT: PERRL/EOMI Neck: non-tender, full range of motion, supple, normal inspection Respiratory: chest non-tender, lungs clear, normal breath sounds, prolonged expiration, No stridor Cardiac/Chest: normal peripheral pulses, regular rate, rhythm, systolic murmur Abdomen: normal bowel sounds, non-tender, soft Male Genitalia: deferred Rectal: deferred Skin: normal color, warm/dry Extremities: normal range of motion, non-tender, normal inspection, normal capillary refill Neuro/Psych: no motor/sensory deficits, alert, normal mood/affect, oriented x 3 ICD10 Worksheet Patient Problems: Problems Problem Status Onset Acute blood loss anemia Acute CHF (congestive heart failure) Acute Cardiomegaly Acute Pleural effusion Acute S/P CABG x 4 Acute ~12/01/17 Shortness of breath Acute Status post mitral valve annuloplasty Acute ~12/01/17 CKD (chronic kidney disease) stage 4, GFR 15-29 ml/min Chronic Elevated troponin Acute Frequent PVCs Acute chronic disease mgmt/transitional care Acute
[2017-12-04] MEDS: INSULIN LISPRO 100 UNIT/ML SC SCH ×3 (09:50→18:11)
--- NOTE | 2017-12-04 10:54 | HOSPPROG ---
Hospitalist Progress Note Assessment/Plan: # DM2, A1C 7.2% - will treat with insulin for now, consider changing to PO meds when taking better PO - start glargine 7 - cont SSI lispro Subjective: seen with his brother Objective: Vital Signs Temp Pulse Resp BP Pulse Ox 36.9 C 96 15 113/44 L 95 12/04/17 09:00 12/04/17 10:00 12/04/17 10:00 12/04/17 10:00 12/04/17 10:00 Laboratory Results 12/04/17 08:40 12/04/17 04:30 12/03/17 12/04/17 12/05/17 05:59 05:59 05:59 Intake Total 1587 1940.7 Output Total 1380 1045 Balance 207 895.7 PT 14.5 SEC (12.0-15.0) 12/04/17 04:45 INR 1.11 (0.83-1.16) 12/04/17 04:45 - Physical Exam Constitutional: other (resting comfortably) Cardiovascular: no murmur, rub, or gallop, systolic murmur Respiratory: no respiratory distress, no rales or rhonchi, clear to auscultation Gastrointestinal: soft, non-tender abdomen, no palpable masses, No guarding, No rebound, No distension ICD10 Worksheet Patient Problems: Problems Problem Status Onset CKD (chronic kidney disease) stage 4, GFR 15-29 ml/min Chronic Acute blood loss anemia Acute Status post mitral valve annuloplasty Acute ~12/01/17 S/P CABG x 4 Acute ~12/01/17 chronic disease mgmt/transitional care Acute Frequent PVCs Acute CHF (congestive heart failure) Acute Elevated troponin Acute Pleural effusion Acute Cardiomegaly Acute Shortness of breath Acute
--- NOTE | 2017-12-04 11:13 | SOAPPROG ---
SOAP Progress Note Assessment/Plan: Assessment/Plan: 77 y/o M with a known h/o CKD who presented with volume overload found to have new CM with severe CAD and MR on cardiac cath now POD#3 CABG and MV annuloplasty. 1. JENN on CKD -baseline Cr 2.7 going into surgery, now rising to >5 -monitor I/O's, 750cc yest -continue slow diuresis on lasix gtt per CT surgery -keep MAP>65 -no acute indication for dialysis, however appears to be heading in that direction -will continue to monitor 2. CAD and MR -had run of afib, now on amio -diuresis as above 3. Anemia -blood loss reported as minimal -Hb slowly drifting down -transfuse per crit care team -holding EPO 4. Hyperkalemia -ok today -s/p kayex dose 12/04/17 11:13 Subjective: Resting. Still making UO. Objective: Vital Signs Temp Pulse Resp BP Pulse Ox 36.9 C 96 15 113/44 L 95 12/04/17 09:00 12/04/17 10:00 12/04/17 10:00 12/04/17 10:00 12/04/17 10:00 Laboratory Results 12/04/17 08:40 12/04/17 04:30 12/03/17 12/04/17 12/05/17 05:59 05:59 05:59 Intake Total 1587 1940.7 Output Total 1380 1045 Balance 207 895.7 PT 14.5 SEC (12.0-15.0) 12/04/17 04:45 INR 1.11 (0.83-1.16) 12/04/17 04:45 Physical Exam - Physical Exam General Appearance: no apparent distress EENT: PERRL/EOMI, pharynx normal Neck: non-tender, supple Respiratory: decreased breath sounds Cardiac/Chest: irregularly irregular Abdomen: normal bowel sounds, soft, distended Skin: pallor Extremities: pedal edema ICD10 Worksheet Patient Problems: Problems Problem Status Onset Acute blood loss anemia Acute CHF (congestive heart failure) Acute Cardiomegaly Acute Pleural effusion Acute S/P CABG x 4 Acute ~12/01/17 Shortness of breath Acute Status post mitral valve annuloplasty Acute ~12/01/17 CKD (chronic kidney disease) stage 4, GFR 15-29 ml/min Chronic Elevated troponin Acute Frequent PVCs Acute chronic disease mgmt/transitional care Acute
--- NOTE | 2017-12-04 12:57 | ASMTCMCOM ---
CM Note CM Note Notes: Spoke with patient's son, Sam about recommendations for SNF rehab. He agrees his father is going to need to get stronger before returning home. Sam is going to have to return to [place] next week and his sister is in [place]. The patient has 2 brothers, Asad [phone]) and Shyla ([phone]) who do live in [place]. Sam thinks a facility in [place] might be good so the 2 brothers can get there more often to visit. Referrals have been made to [facility], [facility] and [facility] via [email or web address]. Patient himself lives in [place]. Sam states all family members are busy with their own families and jobs and will not be able to care for patient at d/c. Patient's daughter may have some input about facilities here in the [place] area as she used to live here before going to [place]. CM will follow. Date Signed: 12/04/2017 12:56 PM Electronically Signed By:Geneva Reis LCSW
--- NOTE | 2017-12-04 12:58 | ECHO ---
[email or web address] [address] Main: [phone] Fax: Transthoracic Echocardiogram Name: MELANIE COLLADO MR#: [id number] Study Date: 12/04/2017 Study Time: 10:55 AM Date of : 1940 Age: 77 year(s) Height: 177.8 cm (70 in.) Weight: 93.89 kg (207 lb.) BSA: 2.12 m2 Gender: Male Examination: Echo Indication: F/U valvular/EF/ hx DCM, LVEF 20%, TR/ s/p MV repair #30 Velazquez physio ring Image Quality: Contrast: Requested by: Xiomara Arriola BP: 113 mmHg/44 mmHg Heart Rate: Rhythm: Indication: F/U valvular/EF/ hx DCM, LVEF 20%, TR/ s/p MV repair #30 Velazquez physio ring Procedure Staff Land Survey Technician: Cinthia Chung [facility] Reading Physician: Iveth Daniels MD Requesting Provider: Jimbo Patel Conclusions: Normal size left ventricle. The ejection fraction is estimated to be 30-35 %. LV septal wall is consistent with post-op state (septal bounce noted). Interventricular septum is flattened consistent with RV pressure and volume overload. Normal size right ventricle. Mildly reduced RV function. The left atrium is moderately dilated. There is no significant mitral valve regurgitation. An annuloplasty ring is noted in the mitral valve position. MV mean PG is 4mmHG.. Mild to moderate tricuspid valve regurgitation. The pulmonary artery pressure is normal. Trivial to mild pulmonic valve regurgitation. No pericardial effusion. Compared with JOSEPH dated 11/29/2017 LV systolic function has improved slightly. Mitral valve has been repaired. Measurements: Chambers Valvular Assessment AV/MV Valvular Assessment TV/PV Normal Normal Normal Name Value Range Name Value Range Name Value Range Ao Meli (MM): 3.5 cm (2.2 cm-3.7 AV Vmax: 1.54 m/s (1 m/s-1.7 TR Vmax: 2.57 mm/s ( - ) cm) m/s) TR PGmax: 26 mmHg ( - ) IVSd (2D): 0.7 cm (0.6 cm-1.1 AV meanP mmHg ( - ) syst. PAP: 31 mmHg ( - ) cm) MV E Vmax: 1.32 m/s ( - ) LVDd (2D): 5.2 cm (4.2 cm-5.9 MV A Vmax: 0.60 m/s ( - ) cm) MV E/A: 2.20 ( - ) LVDs (2D): 4.7 cm (2.1 cm-4 MV meanP mmHg ( - ) cm) MV PHT: 0.076 s ( - ) Patient: MELANIE COLLADO Study Date: 12/04/2017 Page 1 of 2 10:55 AM LVPWd (2D): 1.0 cm (0.6 cm-1 MVA (PHT): 2.9 s ( - ) cm) EF Range: 30-35 % Continued Measurements: Chambers Valvular Assessment AV/MV Valvular Assessment TV/PV Name Value Name Value Name Value LADs: 4.1 cm MV DecTime: 454 m/s CVP (est.): 5 mmHg LADs Lon.8 cm MV E' Septal: 0.04 m/s LA Area: 25.5 cm2 MV E/E' Septal: 32.30 MV E/E' Lateral: 29.50 MV VTI: 37.80 cm Findings: Left Ventricle: Normal size left ventricle. The ejection fraction is estimated to be 30-35 %. Diastolic dysfunction is present. . LV septal wall is consistent with post-op state (septal bounce noted). Interventricular septum is flattened consistent with RV pressure and volume overload. Right Ventricle: Normal size right ventricle. Mildly reduced RV function. Left Atrium: The left atrium is moderately dilated. Right Atrium: The right atrium is mildly dilated. Mitral Valve: There is no significant mitral valve regurgitation. An annuloplasty ring is noted in the mitral valve position. MV mean PG is 4mmHG.. Aortic Valve: The aortic valve is tri-leaflet. Mild aortic cusp calcification is noted. Mild aortic valve regurgitation is present. Tricuspid Valve: The tricuspid valve is normal in appearance and function. Mild to moderate tricuspid valve regurgitation. The pulmonary artery pressure is normal. Pulmonic Valve: The pulmonic valve is normal in appearance and function. Trivial to mild pulmonic valve regurgitation. Aorta: The aorta is normal. Pericardium: No pericardial effusion. (No Signature Object) Patient: MELANIE COLLADO Study Date: 12/04/2017 Page 2 of 2 10:55 AM [id number]
[2017-12-04] MEDS ORDERED: WARFARIN SODIUM 5 MG TAB PO ONE (16:00)
[2017-12-05] MEDS: AMIODARONE HCL 200 ML IV SCH ×2 (03:02→12:44)
[2017-12-05 05:06] LABS: PLATELET COUNT 159 10^3/uL (150-400)
[2017-12-05 05:15] LABS: INR 1.34 (0.83-1.16); PROTIME(PATIENT) 16.8 SEC (12.0-15.0)
[2017-12-05] MEDS: HEPARIN 5,000 UNIT/0.5 ML INJ SC SCH ×3 (05:33→21:38)
[2017-12-05] MEDS: FUROSEMIDE 100 MG in D5W 100 ML IV SCH (07:00)
--- NOTE | 2017-12-05 07:21 | SOAPPROG ---
SOAP Progress Note Assessment/Plan: Assessment: POD#4 CABG x 4 (DOMINGUEZ-LAD, SV-D1, SV-OM1, SV-PDA), EVH LLE, MVA #30 physio ring, prophylactic AtriClip ligation left atrial appendage Severe CAD - Fully revascularized with CABG. Secondary prevention with baby ASA , BB as allowed by BP, and hypolipidemic as per cards (hx statin intolerance). Progressive MR - Annular dilatation amenable to ring annuloplasty. Antithrombotic prophylaxis with Coumadin, target INR 2-3, duration 3 mo. 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 Repair deferred. Surveillance per cards. Dilated cardiomyopathy with LVEF 15-20% and acute class IV sCHF - Improved BiV systolic fx (LVEF 30-35%) post revasc on inotropic support. Extubated evening of surgery without incident. Successfully weaned off epi POD#1. Levo wean in progress. TCPWs and 1 of 3 chest tubes out. Postop PAF - Hx NSVT. Postop rhythm sinus w freq PVCs and salvos of NSVT and PAF. Started on amio. [id number] score of 6. Antithrombotic prophylaxis with Coumadin as per MVA. Acute expected blood loss anemia with mild coagulopathy - Stable s/p 1u PRBC. No evidence active bleeding. VTE prophylaxis with SQ hep/SCDs pending INR > 1.7. JENN on CKD4 - Baseline Cr 2-2.3. Steady climb in Cr and K early postop. Adequate UOP on lasix gtt. K responsive to Kayexalate. Nephrology following. DM2 - New dx by preop A1c of 7.2%. Longstanding hx prediabetes. Postop hyperglycemia managed with insulin gtt. Transition to SSI +/- OHAs as per hospitalist. Plan: Wean Levo to SBP > 95. Stop lasix gtt. 1u PRBC prn CVP < 10. Cont IV amio at 0.5 mg/min. Consider transition to orals tonight. Consider removal pleural drains tomorrow. Cont coumadin 5 mg daily. Inc activity. 12/05/17 07:19 Subjective: Peppier and more talkative. Motivated to get better. No acute concerns. Objective: Vital Signs Temp Pulse Resp BP Pulse Ox 36.6 C 88 18 107/48 L 97 12/05/17 04:00 12/05/17 06:00 12/05/17 06:00 12/05/17 06:00 12/05/17 06:00 Laboratory Results 12/05/17 04:55 12/05/17 04:55 12/04/17 12/05/17 12/06/17 05:59 05:59 05:59 Intake Total 1940.7 1474 Output Total 1045 1325 Balance 895.7 149 PT 16.8 SEC (12.0-15.0) H 12/05/17 04:55 INR 1.34 (0.83-1.16) H 12/05/17 04:55 Levo down to 2 mcg. UOP picking up. Physical Exam - Physical Exam General Appearance: alert, no apparent distress Respiratory: crackles (bases), other (blakes x 2 to bulb suction, thin serosang drainage) Cardiac/Chest: regular rate, rhythm, other (Sternotomy and LLE venotomy CDI) Abdomen: non-tender, soft Skin: warm/dry Extremities: swelling (1-2+ dependent) ICD10 Worksheet Patient Problems: Problems Problem Status Onset Acute blood loss anemia Acute CHF (congestive heart failure) Acute Cardiomegaly Acute Pleural effusion Acute S/P CABG x 4 Acute ~12/01/17 Shortness of breath Acute Status post mitral valve annuloplasty Acute ~12/01/17 CKD (chronic kidney disease) stage 4, GFR 15-29 ml/min Chronic Elevated troponin Acute Frequent PVCs Acute chronic disease mgmt/transitional care Acute
[2017-12-05] MEDS: INSULIN LISPRO 100 UNIT/ML SC SCH ×3 (07:55→17:49)
[2017-12-05] MEDS: SENNOSIDES/DOCUSATE SODIUM TAB PO SCH ×2 (08:02→21:37)
[2017-12-05] MEDS: VENLAFAXINE HCL 75 MG TAB PO SCH (08:02)
[2017-12-05] MEDS: ASPIRIN EC 81 MG TAB PO SCH (08:02)
[2017-12-05] MEDS: CALCITRIOL 0.25 MCG CAP PO SCH (08:02)
[2017-12-05] MEDS: PANTOPRAZOLE SODIUM 40 MG TAB PO SCH (08:02)
[2017-12-05] MEDS: FINASTERIDE 5 MG TAB PO SCH (08:02)
--- NOTE | 2017-12-05 09:33 | PDINTPN ---
Human Resources Executive Assistant Progress Note Assessment/Plan: Assessment/plan: * Coronary artery disease * Status post coronary bypass Jhonny and mitral ring annuloplasty -wean off pressors as tolerated * Respiratory-stable off mechanical ventilation -will wean FiO2 as tolerated * Congestive heart failure * History of syncope * Chronic renal insufficiency-creatinine remains at 5.7, but BUN is high. Potassium staying low. Urine output picked up last night -follow BUN and creatinine closely -per Nephrology * VT prophylaxis * Pain-well controlled -continue current pain medications * Stress ulcer prophylaxis * PT/OT * Speech to see Subjective: Sitting up in chair. Resting comfortably. Voice is stronger this morning. Objective: Vital Signs Temp Pulse Resp BP Pulse Ox 36.8 C 95 23 H 109/86 H 97 12/05/17 08:00 12/05/17 08:00 12/05/17 08:00 12/05/17 08:00 12/05/17 08:00 Laboratory Results 12/05/17 04:55 12/05/17 04:55 12/04/17 12/05/17 12/06/17 05:59 05:59 05:59 Intake Total 1940.7 1474 Output Total 1045 1325 Balance 895.7 149 PT 16.8 SEC (12.0-15.0) H 12/05/17 04:55 INR 1.34 (0.83-1.16) H 12/05/17 04:55 - Time Spent With Patient Time Spent With Patient: 35 min of time spent with patient, over 1/2 involved coordination of care or counseling. Case discussed with nursing and cardiothoracic surgery Physical Exam - Physical Exam General Appearance: alert, no apparent distress EENT: PERRL/EOMI Neck: non-tender, full range of motion, supple, normal inspection Respiratory: prolonged expiration, No respiratory distress, No wheezing Cardiac/Chest: normal peripheral pulses, regular rate, rhythm, systolic murmur Peripheral Pulses: 2+: carotid (R), carotid (L), femoral (R), femoral (L), dorsalis-pedis (R), dorsalis-pedis (L) Abdomen: normal bowel sounds, non-tender, soft Male Genitalia: deferred Rectal: deferred Skin: normal color, warm/dry Extremities: non-tender Neuro/Psych: alert, normal mood/affect ICD10 Worksheet Patient Problems: Problems Problem Status Onset Acute blood loss anemia Acute CHF (congestive heart failure) Acute Cardiomegaly Acute Pleural effusion Acute S/P CABG x 4 Acute ~12/01/17 Shortness of breath Acute Status post mitral valve annuloplasty Acute ~12/01/17 CKD (chronic kidney disease) stage 4, GFR 15-29 ml/min Chronic Elevated troponin Acute Frequent PVCs Acute chronic disease mgmt/transitional care Acute
--- NOTE | 2017-12-05 11:25 | HOSPPROG ---
Hospitalist Progress Note Assessment/Plan: # DM2, A1C 7.2% - will treat with insulin for now, consider changing to PO meds when taking better PO - start glargine 4 - cont SSI lispro Subjective: ambulated - felt "disabled" Objective: Vital Signs Temp Pulse Resp BP Pulse Ox 36.8 C 89 19 106/51 L 95 12/05/17 08:00 12/05/17 10:00 12/05/17 10:00 12/05/17 10:00 12/05/17 10:00 Laboratory Results 12/05/17 04:55 12/05/17 04:55 12/04/17 12/05/17 12/06/17 05:59 05:59 05:59 Intake Total 1940.7 1474 Output Total 1045 1325 1020 Balance 895.7 149 -1020 PT 16.8 SEC (12.0-15.0) H 12/05/17 04:55 INR 1.34 (0.83-1.16) H 12/05/17 04:55 - Physical Exam Constitutional: uncomfortable Cardiovascular: no murmur, rub, or gallop, irregularly irregular, No tachycardia , No bradycardia Respiratory: no respiratory distress, no rales or rhonchi, clear to auscultation Gastrointestinal: soft, non-tender abdomen, no palpable masses, No guarding, No rebound, No distension ICD10 Worksheet Patient Problems: Problems Problem Status Onset CKD (chronic kidney disease) stage 4, GFR 15-29 ml/min Chronic Acute blood loss anemia Acute Status post mitral valve annuloplasty Acute ~12/01/17 S/P CABG x 4 Acute ~12/01/17 chronic disease mgmt/transitional care Acute Frequent PVCs Acute CHF (congestive heart failure) Acute Elevated troponin Acute Pleural effusion Acute Cardiomegaly Acute Shortness of breath Acute
[2017-12-05] MEDS: CANN-EASE 2 GM TUBE TP PRN (11:38)
[2017-12-05] MEDS: HYDROCODONE/APAP 5/325 TAB PO PRN (11:38)
--- NOTE | 2017-12-05 13:47 | SOAPPROG ---
MARIBEL Progress Note Assessment/Plan: Assessment/Plan: 77 y/o M with a known h/o CKD who presented with volume overload found to have new CM with severe CAD and MR on cardiac cath now POD#3 CABG and MV annuloplasty. 1. JENN on CKD -baseline Cr 2.7 going into surgery, now rising to 5.9 with BUN>100 -monitor I/O's, appears to be picking up -lasix gtt d/c'd by CTS, will likely need IV dosing tomorrow am but will monitor for now -keep MAP>65 -no acute indication for dialysis, however appears to be heading in that direction and will discuss line placement tomorrow -will continue to monitor 2. CAD and MR -had run of afib, now on amio -BB held -diuresis as above 3. Anemia -blood loss reported as minimal -Hb slowly drifting down -transfuse for low CVP per CTS -holding EPO 4. Hyperkalemia -ok today -s/p kayex dose -renal diet 12/05/17 13:45 Subjective: UO improving a little bit last night and this am. Patient hanging in there. Family at bedside. Objective: Vital Signs Temp Pulse Resp BP Pulse Ox 36.8 C 94 21 H 109/54 L 98 12/05/17 08:00 12/05/17 12:00 12/05/17 12:00 12/05/17 12:00 12/05/17 12:00 Laboratory Results 12/05/17 04:55 12/05/17 04:55 12/04/17 12/05/17 12/06/17 05:59 05:59 05:59 Intake Total 1940.7 1474 Output Total 1045 1325 1020 Balance 895.7 149 -1020 PT 16.8 SEC (12.0-15.0) H 12/05/17 04:55 INR 1.34 (0.83-1.16) H 12/05/17 04:55 Physical Exam - Physical Exam General Appearance: alert, mild distress EENT: PERRL/EOMI Neck: non-tender, supple Respiratory: decreased breath sounds, crackles Cardiac/Chest: edema, irregularly irregular Abdomen: normal bowel sounds, distended Skin: warm/dry Extremities: pedal edema Neuro/Psych: no motor/sensory deficits, alert, normal mood/affect ICD10 Worksheet Patient Problems: Problems Problem Status Onset Acute blood loss anemia Acute CHF (congestive heart failure) Acute Cardiomegaly Acute Pleural effusion Acute S/P CABG x 4 Acute ~12/01/17 Shortness of breath Acute Status post mitral valve annuloplasty Acute ~12/01/17 CKD (chronic kidney disease) stage 4, GFR 15-29 ml/min Chronic Elevated troponin Acute Frequent PVCs Acute chronic disease mgmt/transitional care Acute
[2017-12-05] MEDS ORDERED: WARFARIN SODIUM 5 MG TAB PO ONE (16:00)
[2017-12-05] MEDS: INSULIN GLARGINE 100 UNITS/ML UNIT SC SCH (21:38)
[2017-12-06] MEDS: AMIODARONE HCL 200 ML IV SCH (03:59)
[2017-12-06 05:02] LABS: PLATELET COUNT 187 10^3/uL (150-400)
[2017-12-06] MEDS: HEPARIN 5,000 UNIT/0.5 ML INJ SC SCH (05:49)
[2017-12-06 05:59] LABS: INR 2.84 (0.83-1.16); PROTIME(PATIENT) 29.7 SEC (12.0-15.0)
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
[2017-12-06] MEDS: INSULIN LISPRO 100 UNIT/ML SC SCH ×3 (08:31→19:44)
[2017-12-06] MEDS: PANTOPRAZOLE SODIUM 40 MG TAB PO SCH (08:36)
[2017-12-06] MEDS: FINASTERIDE 5 MG TAB PO SCH (08:37)
[2017-12-06] MEDS: VENLAFAXINE HCL 75 MG TAB PO SCH (08:39)
[2017-12-06] MEDS: AMIODARONE HCL 200 MG TAB PO SCH ×2 (08:41→21:04)
[2017-12-06] MEDS: CALCITRIOL 0.25 MCG CAP PO SCH (08:41)
[2017-12-06] MEDS: ASPIRIN EC 81 MG TAB PO SCH (08:41)
[2017-12-06] MEDS: SENNOSIDES/DOCUSATE SODIUM TAB PO SCH ×2 (08:42→21:04)
--- NOTE | 2017-12-06 08:46 | PDINTPN ---
[facility] Location Manager Progress Note Assessment/Plan: Assessment/plan: * Coronary artery disease * Status post coronary bypass graft and mitral ring annuloplasty -wean off pressors as tolerated * Respiratory-stable off mechanical ventilation -will wean FiO2 as tolerated * Congestive heart failure * History of syncope * Chronic renal insufficiency-creatinine remains at 5.7 high, BUN up. Potassium stable -per Nephrology * VT prophylaxis * Pain-well controlled -continue current pain medications * Stress ulcer prophylaxis * PT/OT Subjective: Up in chair. Resting comfortably. Ambulated today. Good appetite. Objective: Vital Signs Temp Pulse Resp BP Pulse Ox 36.4 C 94 16 91/57 L 96 12/06/17 04:00 12/06/17 06:00 12/06/17 06:00 12/06/17 06:00 12/06/17 06:00 Laboratory Results 12/06/17 04:45 12/06/17 04:45 12/05/17 12/06/17 12/07/17 05:59 05:59 05:59 Intake Total 1474 1174 Output Total 1325 2090 Balance 149 -916 PT 29.7 SEC (12.0-15.0) H 12/06/17 04:45 INR 2.84 (0.83-1.16) H 12/06/17 04:45 Laboratory Results 12/06/17 04:45 12/06/17 04:45 12/06/17 12/05/17 04:45 04:55 Potassium 3.7 mEq/L mEq/L 3.7 mEq/L mEq/L (3.3 - 5.0) (3.3 - 5.0) BUN 110 mg/dL H* mg/dL 104 mg/dL H* mg/dL (7 - 23) (7 - 23) Creatinine 6.2 mg/dL H mg/dL 5.7 mg/dL H mg/dL (0.7 - 1.3) (0.7 - 1.3) - Time Spent With Patient Time Spent With Patient: 35 min of time spent with patient, over 1/2 involved with coordination of care or counseling. Case discussed with thoracic surgery and nursing Physical Exam - Physical Exam General Appearance: alert, no apparent distress EENT: PERRL/EOMI Neck: non-tender, full range of motion, supple, normal inspection Respiratory: chest non-tender, lungs clear, normal breath sounds Cardiac/Chest: normal peripheral pulses, regular rate, rhythm Peripheral Pulses: 2+: carotid (R), carotid (L), femoral (R), femoral (L), dorsalis-pedis (R), dorsalis-pedis (L) Abdomen: normal bowel sounds, non-tender, soft Male Genitalia: deferred Rectal: deferred Skin: normal color, warm/dry Extremities: normal range of motion, non-tender, normal inspection, normal capillary refill Neuro/Psych: alert ICD10 Worksheet Patient Problems: Problems Problem Status Onset Acute blood loss anemia Acute CHF (congestive heart failure) Acute Cardiomegaly Acute Pleural effusion Acute S/P CABG x 4 Acute ~12/01/17 Shortness of breath Acute Status post mitral valve annuloplasty Acute ~12/01/17 CKD (chronic kidney disease) stage 4, GFR 15-29 ml/min Chronic Elevated troponin Acute Frequent PVCs Acute chronic disease mgmt/transitional care Acute
[2017-12-06] MEDS ORDERED: POTASSIUM Cl (KCl) 100 ML IV ONE (09:42)
[2017-12-06] MEDS: FUROSEMIDE 100 MG/10 ML VIAL IVP SCH ×2 (10:03→15:08)
[2017-12-06] MEDS: traMADol 50 MG TAB PO PRN ×2 (10:29→19:13)
--- NOTE | 2017-12-06 10:36 | HOSPPROG ---
Hospitalist Progress Note Assessment/Plan: # DM2, A1C 7.2% - will treat with insulin for now, consider changing to PO meds when taking better PO - glucs slightly better today - no change in insulin - start glargine 4 - cont SSI lispro Subjective: feels weak today Objective: Vital Signs Temp Pulse Resp BP Pulse Ox 36.9 C 99 28 H 114/58 L 92 12/06/17 08:00 12/06/17 08:00 12/06/17 08:00 12/06/17 08:00 12/06/17 08:00 Laboratory Results 12/06/17 04:45 12/06/17 04:45 12/05/17 12/06/17 12/07/17 05:59 05:59 05:59 Intake Total 1474 1174 54.4 Output Total 1325 2090 170 Balance 149 -916 -115.6 PT 29.7 SEC (12.0-15.0) H 12/06/17 04:45 INR 2.84 (0.83-1.16) H 12/06/17 04:45 - Physical Exam Constitutional: chronically ill appearing, uncomfortable Cardiovascular: regular rate and rhythym, no murmur, rub, or gallop Respiratory: no respiratory distress, no rales or rhonchi, clear to auscultation Gastrointestinal: soft, non-tender abdomen, no palpable masses, No guarding, No rebound, No distension ICD10 Worksheet Patient Problems: Problems Problem Status Onset CKD (chronic kidney disease) stage 4, GFR 15-29 ml/min Chronic Acute blood loss anemia Acute Status post mitral valve annuloplasty Acute ~12/01/17 S/P CABG x 4 Acute ~12/01/17 chronic disease mgmt/transitional care Acute Frequent PVCs Acute CHF (congestive heart failure) Acute Elevated troponin Acute Pleural effusion Acute Cardiomegaly Acute Shortness of breath Acute
[2017-12-06] MEDS: ONDANSETRON 4 MG/2 ML VIAL IVP PRN (10:46)
--- NOTE | 2017-12-06 14:57 | SOAPPROG ---
SOAP Progress Note Assessment/Plan: Assessment/Plan: 77 y/o M with a known h/o CKD who presented with volume overload found to have new CM with severe CAD and MR on cardiac cath now POD#3 CABG and MV annuloplasty. 1. JENN on CKD -baseline Cr 2.7 going into surgery, now >6 with BUN>100 -monitor I/O's, hold lasix for now -keep MAP>65 -given emesis and rising BUN/Cr concern for uremia and will discuss line placement and some gentle dialysis tomorrow with CTS -will continue to monitor 2. CAD and MR -had run of afib, now on amio -BB held -chest tube in place 3. Anemia -blood loss reported as minimal -Hb slowly drifting down -transfuse for low CVP per CTS -holding EPO 4. Hyperkalemia -ok today -s/p kayex dose -renal diet 5. BMD -phos>8 -will restart binder 12/06/17 14:57 Subjective: Had an episode of emesis today. Made 1L of UO off lasix gtt. Objective: Vital Signs Temp Pulse Resp BP Pulse Ox 36.3 C 96 11 L 107/46 L 95 12/06/17 12:14 12/06/17 12:14 12/06/17 12:14 12/06/17 12:14 12/06/17 12:14 Laboratory Results 12/06/17 04:45 12/06/17 12:05 12/05/17 12/06/17 12/07/17 05:59 05:59 05:59 Intake Total 1474 1174 414.4 Output Total 1325 2090 605 Balance 149 -916 -190.6 PT 29.7 SEC (12.0-15.0) H 12/06/17 04:45 INR 2.84 (0.83-1.16) H 12/06/17 04:45 Physical Exam - Physical Exam General Appearance: mild distress, cachetic EENT: PERRL/EOMI, normal ENT inspection Neck: non-tender, full range of motion, supple Respiratory: decreased breath sounds, crackles Cardiac/Chest: edema, irregularly irregular Abdomen: normal bowel sounds, non-tender, distended Skin: pallor Extremities: normal range of motion, pedal edema Neuro/Psych: alert, normal mood/affect, oriented x 3 ICD10 Worksheet Patient Problems: Problems Problem Status Onset Acute blood loss anemia Acute CHF (congestive heart failure) Acute Cardiomegaly Acute Pleural effusion Acute S/P CABG x 4 Acute ~12/01/17 Shortness of breath Acute Status post mitral valve annuloplasty Acute ~12/01/17 CKD (chronic kidney disease) stage 4, GFR 15-29 ml/min Chronic Elevated troponin Acute Frequent PVCs Acute chronic disease mgmt/transitional care Acute
[2017-12-06] MEDS ORDERED: FUROSEMIDE 100 MG/10 ML VIAL IVP SCH (15:00)
[2017-12-06] MEDS: CALCIUM ACETATE 667 MG CAP PO SCH (19:13)
[2017-12-06] MEDS: INSULIN GLARGINE 100 UNITS/ML UNIT SC SCH (21:12)
[2017-12-07 05:39] LABS: PLATELET COUNT 190 10^3/uL (150-400)
[2017-12-07 05:45] LABS: INR 2.89 (0.83-1.16); PROTIME(PATIENT) 30.1 SEC (12.0-15.0)
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
--- NOTE | 2017-12-07 08:20 | SOAPPROG ---
SOAP Progress Note Assessment/Plan: Assessment/Plan: 77 y/o M with a known h/o CKD who presented with volume overload found to have new CM with severe CAD and MR on cardiac cath now POD#3 CABG and MV annuloplasty. 1. JENN on CKD -baseline Cr 2.7 going into surgery, now >6 with BUN still rising -monitor I/O's, 1750 out yesterday -keep MAP>65 -patient having vomiting and likely uremic, while he is making adequate UO he is likely getting no clearance -will place line and dialyze gently later today 2. CAD and MR -had run of afib, now on amio -BB held -chest tube in place 3. Anemia -blood loss reported as minimal -transfuse for low CVP per CTS -holding EPO 4. Hyperkalemia -resolved -renal diet 5. BMD -phos>8 -started binder 12/0612/07/17 08:16 Subjective: Patient ate a couple of bites of food with daughter this am. No reported vomiting despite nursing documentation. Objective: Vital Signs Temp Pulse Resp BP Pulse Ox 36.7 C 105 H 18 108/63 94 12/07/17 07:55 12/07/17 07:55 12/07/17 07:55 12/07/17 07:55 12/07/17 07:55 Laboratory Results 12/07/17 04:40 12/07/17 04:40 12/06/17 12/07/17 12/08/17 05:59 05:59 05:59 Intake Total 1174 1164.4 Output Total 2090 2590 Balance -916 -1425.6 PT 30.1 SEC (12.0-15.0) H 12/07/17 04:40 INR 2.89 (0.83-1.16) H 12/07/17 04:40 Physical Exam - Physical Exam General Appearance: WD/WN, alert, mild distress EENT: PERRL/EOMI Neck: non-tender, full range of motion, supple Respiratory: decreased breath sounds, crackles Cardiac/Chest: irregularly irregular Abdomen: normal bowel sounds, non-tender, distended Skin: warm/dry, pallor Extremities: non-tender, pedal edema Neuro/Psych: no motor/sensory deficits, alert, normal mood/affect ICD10 Worksheet Patient Problems: Problems Problem Status Onset Acute blood loss anemia Acute CHF (congestive heart failure) Acute Cardiomegaly Acute Pleural effusion Acute S/P CABG x 4 Acute ~12/01/17 Shortness of breath Acute Status post mitral valve annuloplasty Acute ~12/01/17 CKD (chronic kidney disease) stage 4, GFR 15-29 ml/min Chronic Elevated troponin Acute Frequent PVCs Acute chronic disease mgmt/transitional care Acute
[2017-12-07] MEDS: ASPIRIN EC 81 MG TAB PO SCH (09:20)
[2017-12-07] MEDS: FINASTERIDE 5 MG TAB PO SCH (09:20)
[2017-12-07] MEDS: SENNOSIDES/DOCUSATE SODIUM TAB PO SCH ×2 (09:20→21:30)
[2017-12-07] MEDS: FUROSEMIDE 100 MG/10 ML VIAL IVP SCH ×2 (09:20→17:24)
[2017-12-07] MEDS: AMIODARONE HCL 200 MG TAB PO SCH ×2 (09:20→21:30)
[2017-12-07] MEDS: PANTOPRAZOLE SODIUM 40 MG TAB PO SCH (09:20)
[2017-12-07] MEDS ORDERED: HEPARIN 50,000 UNIT/10 ML VIAL ONE (09:45)
--- NOTE | 2017-12-07 11:02 | PDHPUP ---
History & Physical Update H&P update statement: This history and physical update is based on an assessment of the patient which was completed after admission or registration (within 24 hours), but prior to the surgery/procedure. CVC temp HD catheter for ARF H&P update: H&P reviewed & patient examined, no change in patient's condition since H&P completed
[2017-12-07] MEDS: INSULIN LISPRO 100 UNIT/ML SC SCH ×2 (11:03→18:07)
--- NOTE | 2017-12-07 11:03 | PDRADPN ---
Radiology Procedure Note Date of Procedure: 12/07/17 Radiologist: Tim Ann Anesthesia: Local (Specify) Pre-op Diagnosis: ARF Post-op Diagnosis: ARF Indication: ARF Procedure: Temp nontunneled CVC Inf/Abcess present in the surg proc area at time of surgery?: No
[2017-12-07] MEDS: CALCIUM ACETATE 667 MG CAP PO SCH ×3 (11:04→18:07)
[2017-12-07] MEDS: VENLAFAXINE HCL 75 MG TAB PO SCH (11:08)
[2017-12-07] MEDS: CALCITRIOL 0.25 MCG CAP PO SCH (11:08)
[2017-12-07] MEDS ORDERED: ALBUMIN 25% 100 ML IV PRN (12:48)
[2017-12-07] MEDS ORDERED: SODIUM CITRATE 4% 5 ML in SYRINGE 0 ML DIAL ONE (13:00)
--- NOTE | 2017-12-07 13:14 | HOSPPROG ---
Hospitalist Progress Note Assessment/Plan: # DM2, A1C 7.2% - will treat with insulin for now, consider changing to PO meds when taking better PO - cont glargine 4 - cont SSI lispro Subjective: s/p HD catheter today Objective: Vital Signs Temp Pulse Resp BP Pulse Ox 36.6 C 110 H 14 114/62 96 12/07/17 10:56 12/07/17 10:56 12/07/17 10:56 12/07/17 11:59 12/07/17 10:56 Laboratory Results 12/07/17 04:40 12/07/17 04:40 12/06/17 12/07/17 12/08/17 05:59 05:59 05:59 Intake Total 1174 1164.4 240 Output Total 2090 2590 835 Balance -916 -1425.6 -595 PT 30.1 SEC (12.0-15.0) H 12/07/17 04:40 INR 2.89 (0.83-1.16) H 12/07/17 04:40 - Physical Exam Constitutional: no apparent distress, appears nourished Ears, Nose, Mouth, Throat: other (R sided HD catheter and triple lumen) Cardiovascular: regular rate and rhythym, no murmur, rub, or gallop Respiratory: no respiratory distress, no rales or rhonchi Gastrointestinal: soft, non-tender abdomen, no palpable masses, No rebound, No distension ICD10 Worksheet Patient Problems: Problems Problem Status Onset CKD (chronic kidney disease) stage 4, GFR 15-29 ml/min Chronic Acute blood loss anemia Acute Status post mitral valve annuloplasty Acute ~12/01/17 S/P CABG x 4 Acute ~12/01/17 chronic disease mgmt/transitional care Acute Frequent PVCs Acute CHF (congestive heart failure) Acute Elevated troponin Acute Pleural effusion Acute Cardiomegaly Acute Shortness of breath Acute
--- NOTE | 2017-12-07 13:54 | ASMTCMCOM ---
CM Note CM Note Notes: Met with patient's family and per discussion they wish for him to go to [facility] over other potential facilities. Call to [employer] as they have questions regarding his insurance coverage. CM to follow. Plan: To SNF. Date Signed: 12/07/2017 12:41 PM Electronically Signed By:Clover Ellington RN
[2017-12-07] MEDS ORDERED: LIDOCAINE 2% JELLY 20 ML (UROJECT) UR PRN (17:30)
[2017-12-07] MEDS: METOPROLOL TARTRATE 25 MG TAB PO SCH (21:30)
[2017-12-07] MEDS: TAMSULOSIN HCL 0.4 MG CAP PO SCH (21:30)
[2017-12-07] MEDS: INSULIN GLARGINE 100 UNITS/ML UNIT SC SCH (21:33)
[2017-12-07] MEDS: traMADol 50 MG TAB PO PRN (23:30)
[2017-12-08 05:59] LABS: PLATELET COUNT 221 10^3/uL (150-400)
[2017-12-08 06:02] LABS: INR 2.1 (0.83-1.16); PROTIME(PATIENT) 23.6 SEC (12.0-15.0)
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
[2017-12-08] MEDS ORDERED: FUROSEMIDE 100 MG/10 ML VIAL IVP ONE (07:59)
[2017-12-08] MEDS: PANTOPRAZOLE SODIUM 40 MG TAB PO SCH (09:16)
[2017-12-08] MEDS: CALCITRIOL 0.25 MCG CAP PO SCH (09:16)
[2017-12-08] MEDS: SENNOSIDES/DOCUSATE SODIUM TAB PO SCH ×2 (09:16→21:20)
[2017-12-08] MEDS: METOPROLOL TARTRATE 25 MG TAB PO SCH ×2 (09:16→21:24)
[2017-12-08] MEDS: FINASTERIDE 5 MG TAB PO SCH (09:16)
[2017-12-08] MEDS: AMIODARONE HCL 200 MG TAB PO SCH ×2 (09:16→21:19)
[2017-12-08] MEDS: VENLAFAXINE HCL 75 MG TAB PO SCH (09:17)
[2017-12-08] MEDS: CALCIUM ACETATE 667 MG CAP PO SCH ×3 (09:17→18:20)
[2017-12-08] MEDS: INSULIN LISPRO 100 UNIT/ML SC SCH ×3 (09:17→17:44)
[2017-12-08] MEDS: ASPIRIN EC 81 MG TAB PO SCH (09:17)
[2017-12-08] MEDS: HYDROCODONE/APAP 5/325 TAB PO PRN (10:31)
--- NOTE | 2017-12-08 10:43 | SOAPPROG ---
[facility] Progress Note Assessment/Plan: Assessment: 1. crf: dialyzed yesterday for azotemia, BUN still quite high today and will hd again for clearance without uf. After today expect can follow several days without hd to monitor for recovery. Uo remains quite good, I suspect he will recover sufficient function to avoid esrd for now. 2. chf: now post-op from cabg/mv repair. Vol status looks good. No uf on hd today. 3. anemia: stable. Plan: 12/01/17 15:49 12/01/17 15:57 12/08/17 10:40 12/08/17 10:43 Subjective: Dialyzed yesterday, feeling better today. No further n/v. Up in chair, having some epistaxis. Objective: Vital Signs Temp Pulse Resp BP Pulse Ox 36.8 C 100 15 104/52 L 91 L 12/08/17 07:07 12/08/17 07:07 12/08/17 07:07 12/08/17 07:07 12/08/17 07:07 Laboratory Results 12/08/17 05:35 12/08/17 05:35 12/07/17 12/08/17 12/09/17 05:59 05:59 05:59 Intake Total 1164.4 1040 215 Output Total 2590 835 175 Balance -1425.6 205 40 PT 23.6 SEC (12.0-15.0) H 12/08/17 05:35 INR 2.10 (0.83-1.16) H 12/08/17 05:35 Physical Exam - Physical Exam General Appearance: no apparent distress Respiratory: decreased breath sounds (at bases) Cardiac/Chest: irregularly irregular Abdomen: soft Extremities: pedal edema (none) ICD10 Worksheet Patient Problems: Problems Problem Status Onset Acute blood loss anemia Acute CHF (congestive heart failure) Acute Cardiomegaly Acute Pleural effusion Acute S/P CABG x 4 Acute ~12/01/17 Shortness of breath Acute Status post mitral valve annuloplasty Acute ~12/01/17 CKD (chronic kidney disease) stage 4, GFR 15-29 ml/min Chronic Elevated troponin Acute Frequent PVCs Acute chronic disease mgmt/transitional care Acute
[2017-12-08] MEDS ORDERED: WARFARIN SODIUM 2.5 MG TAB PO ONE ×2 (16:00→18:15)
[2017-12-08] MEDS ORDERED: HEPARIN 50,000 UNIT/10 ML VIAL ONE (18:43)
--- NOTE | 2017-12-08 18:47 | HOSPPROG ---
Hospitalist Progress Note Assessment/Plan: Assessment: 77 yo M presents for CABG/MVR/TVR c/b JENN on CKD, acute systolic CHF , consulted for DM2 # DM2. A1C 7.2%, counseled patient that he will likely require lantus at discharge b/c his renal fxn won't safely tolerate PO agents -cont lantus 4 -cont ISS -FBG 122, no dose adjustments required today Hospital medicine will continue to consult. Subjective: patient w/o BM, does not want stool softener Objective: Vital Signs Temp Pulse Resp BP Pulse Ox 36.6 C 121 H 20 105/50 L 92 12/08/17 11:57 12/08/17 18:20 12/08/17 11:57 12/08/17 18:20 12/08/17 11:57 Laboratory Results 12/08/17 05:35 12/08/17 05:35 12/07/17 12/08/17 12/09/17 05:59 05:59 05:59 Intake Total 1164.4 1040 665 Output Total 2590 835 350 Balance -1425.6 205 315 PT 23.6 SEC (12.0-15.0) H 12/08/17 05:35 INR 2.10 (0.83-1.16) H 12/08/17 05:35 - Physical Exam Constitutional: no apparent distress, appears nourished, not in pain, No uncomfortable Cardiovascular: systolic murmur (I/ at base), irregularly irregular, edema ( trace, L>R LE), No tachycardia Respiratory: inspiratory crackles, No expiratory wheeze, No bronchial breath sounds, No respiratory distress Gastrointestinal: normoactive bowel sounds, soft, non-tender abdomen, no palpable masses, No distension Skin: other (ecchymoses LLE) Neurologic: AAOx3, sensation intact bilaterally, No weakness Psychiatric: interacting appropriately, not anxious, not encephalopathic, thought process linear ICD10 Worksheet Patient Problems: Problems Problem Status Onset Acute blood loss anemia Acute CHF (congestive heart failure) Acute Cardiomegaly Acute Pleural effusion Acute S/P CABG x 4 Acute ~12/01/17 Shortness of breath Acute Status post mitral valve annuloplasty Acute ~12/01/17 CKD (chronic kidney disease) stage 4, GFR 15-29 ml/min Chronic Elevated troponin Acute Frequent PVCs Acute chronic disease mgmt/transitional care Acute
[2017-12-08] MEDS ORDERED: AMIODARONE A.FIB-LOAD DOSE(ORDER 1/3) PREMIX IV ONE (19:00)
[2017-12-08] MEDS ORDERED: AMIODARONE A.FIB-6HR INFSN (ORDER 2/3) PREMIX IV ONE (19:00)
[2017-12-08] MEDS ORDERED: ALBUMIN 5% 250 ML IV ONE (20:08)
[2017-12-08] MEDS: TAMSULOSIN HCL 0.4 MG CAP PO SCH (21:19)
[2017-12-08] MEDS: INSULIN GLARGINE 100 UNITS/ML UNIT SC SCH (22:03)
[2017-12-09] MEDS ORDERED: AMIODARONE A.FIB-18HR INFSN (ORDER 3/3) IV ONE (01:30)
[2017-12-09] MEDS: traMADol 50 MG TAB PO PRN ×2 (02:23→21:46)
[2017-12-09 05:43] LABS: INR 1.82 (0.83-1.16); PROTIME(PATIENT) 21.2 SEC (12.0-15.0)
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
[2017-12-09] MEDS: CALCITRIOL 0.25 MCG CAP PO SCH (09:24)
[2017-12-09] MEDS: SENNOSIDES/DOCUSATE SODIUM TAB PO SCH ×2 (09:25→21:46)
[2017-12-09] MEDS: FINASTERIDE 5 MG TAB PO SCH (09:25)
[2017-12-09] MEDS: ASPIRIN EC 81 MG TAB PO SCH (09:25)
[2017-12-09] MEDS: AMIODARONE HCL 200 MG TAB PO SCH ×2 (09:29→21:46)
[2017-12-09] MEDS: CALCIUM ACETATE 667 MG CAP PO SCH ×3 (09:30→17:59)
[2017-12-09] MEDS: PANTOPRAZOLE SODIUM 40 MG TAB PO SCH (09:30)
[2017-12-09] MEDS: INSULIN LISPRO 100 UNIT/ML SC SCH ×3 (09:30→17:59)
[2017-12-09] MEDS: VENLAFAXINE HCL 75 MG TAB PO SCH (09:32)
--- NOTE | 2017-12-09 09:39 | SOAPPROG ---
SOAP Progress Note Assessment/Plan: Assessment/Plan: JENN on CKD 4: baseline Cr in 2 range. He was dialyzed on Wednesday and Wednesday for azotemia, which has improved with HD. Nonoliguric, lytes ok. - No HD today. - Will continue to monitor daily for HD needs and renal recovery. - Avoid hypotension and nephrotoxins. Hypervolemia: improved with diuresis, now diuretics on hold, will continue to monitor. Anemia: Hgb stable, will continue to monitor, no need for epo at this time. NORMA: will increase phos binder and continue to monitor. Subjective: No acute events overnight. Pt states that it is still difficult for him to breath, mostly because his nose feels dry. He has no chest pain, notes swelling in legs is improved. Objective: Vital Signs Temp Pulse Resp BP Pulse Ox 36.7 C 107 H 20 94/57 L 97 12/09/17 07:13 12/09/17 07:13 12/09/17 07:13 12/09/17 07:13 12/09/17 07:13 Laboratory Results 12/08/17 05:35 12/09/17 05:25 12/08/17 12/09/17 12/10/17 05:59 05:59 05:59 Intake Total 1040 1365 Output Total 835 675 Balance 205 690 PT 21.2 SEC (12.0-15.0) H 12/09/17 05:25 INR 1.82 (0.83-1.16) H 12/09/17 05:25 General: alert and oriented, no acute distress Eyes; EOMI, PERRL OP: Clear CV: RRR Resp: nonlabored respirations on NC Abd; Soft, NT/ND Ext: +1 edema BLE Neuro: CN II-XII grossly intact, no asterixis Psych: cooperative Access: RIJ temp cath ICD10 Worksheet Patient Problems: Problems Problem Status Onset Acute blood loss anemia Acute CHF (congestive heart failure) Acute Cardiomegaly Acute Pleural effusion Acute S/P CABG x 4 Acute ~12/01/17 Shortness of breath Acute Status post mitral valve annuloplasty Acute ~12/01/17 CKD (chronic kidney disease) stage 4, GFR 15-29 ml/min Chronic Elevated troponin Acute Frequent PVCs Acute chronic disease mgmt/transitional care Acute
[2017-12-09] MEDS: HYDROCODONE/APAP 5/325 TAB PO PRN (09:45)
[2017-12-09] MEDS ORDERED: FUROSEMIDE 100 MG/10 ML VIAL IVP ONE (11:16)
--- NOTE | 2017-12-09 14:20 | HOSPPROG ---
Hospitalist Progress Note Assessment/Plan: Assessment: 77 yo M presents for CABG/MVR/TVR c/b JENN on CKD, acute systolic CHF , consulted for DM2 # DM2. A1C 7.2%, d/w Dr. Carter, we agreed he will likely require lantus at discharge b/c his renal fxn won't safely tolerate PO agents -cont lantus 4 -cont ISS -FBG 103, no dose adjustments required today (range 90-179 w/ highs 2/2 refusal of ISS) -d/w transitional care, patient will have his outpt DM2 managed by Dr. Mueller # Atelectasis. Acute, present on CXR (personally interpreted), counseled patient re: IS use, patient pulling 1300mL at present Hospital medicine will continue to consult. Subjective: no BM, increased strength today Objective: Vital Signs Temp Pulse Resp BP Pulse Ox 36.6 C 102 H 19 105/58 L 93 12/09/17 12:00 12/09/17 12:00 12/09/17 12:00 12/09/17 12:00 12/09/17 12:00 Laboratory Results 12/08/17 05:35 12/09/17 05:25 12/08/17 12/09/17 12/10/17 05:59 05:59 05:59 Intake Total 1040 1365 350 Output Total 835 675 Balance 205 690 350 PT 21.2 SEC (12.0-15.0) H 12/09/17 05:25 INR 1.82 (0.83-1.16) H 12/09/17 05:25 - Physical Exam Constitutional: no apparent distress, appears nourished, not in pain, No uncomfortable Cardiovascular: systolic murmur (I/ at apex), irregularly irregular, edema ( trace bilat LE), No tachycardia Respiratory: inspiratory crackles, No expiratory wheeze, No bronchial breath sounds, No respiratory distress Gastrointestinal: normoactive bowel sounds, soft, non-tender abdomen, no palpable masses, No distension Skin: other (ecchymoses LLE, no erythema/induration/tenderness over sternal site ) Neurologic: AAOx3 Psychiatric: interacting appropriately, not anxious, not encephalopathic, thought process linear ICD10 Worksheet Patient Problems: Problems Problem Status Onset CKD (chronic kidney disease) stage 4, GFR 15-29 ml/min Chronic Acute blood loss anemia Acute Status post mitral valve annuloplasty Acute ~12/01/17 S/P CABG x 4 Acute ~12/01/17 chronic disease mgmt/transitional care Acute Frequent PVCs Acute CHF (congestive heart failure) Acute Elevated troponin Acute Pleural effusion Acute Cardiomegaly Acute Shortness of breath Acute
--- NOTE | 2017-12-09 14:26 | ASMTCMCOM ---
CM Note CM Note Notes: CAIO spoke to pts daughter Antonia. Her first choice is [facility]. CAIO spoke to JUN Witt. Eduar is anticipating d/c for early next week. He is hoping that pt can d/c without dialysis. Updates sent to [facility]. CM to follow. Plan: [facility] Date Signed: 12/09/2017 02:25 PM Electronically Signed By:MONIQUE Currie
[2017-12-09] MEDS ORDERED: WARFARIN SODIUM 5 MG TAB PO ONE (16:00)
[2017-12-09] MEDS: TAMSULOSIN HCL 0.4 MG CAP PO SCH (21:46)
[2017-12-09] MEDS: INSULIN GLARGINE 100 UNITS/ML UNIT SC SCH (21:47)
[2017-12-09] MEDS: SODIUM CL NASAL 45 ML BTL EACHNARE PRN (22:27)
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
[2017-12-10 06:36] LABS: INR 1.8 (0.83-1.16)
[2017-12-10] MEDS: CALCIUM ACETATE 667 MG CAP PO SCH ×3 (08:56→17:48)
[2017-12-10] MEDS: AMIODARONE HCL 200 MG TAB PO SCH ×2 (08:57→21:52)
[2017-12-10] MEDS: PANTOPRAZOLE SODIUM 40 MG TAB PO SCH (08:57)
[2017-12-10] MEDS: ASPIRIN EC 81 MG TAB PO SCH (08:57)
[2017-12-10] MEDS: VENLAFAXINE HCL 75 MG TAB PO SCH (08:57)
[2017-12-10] MEDS: FINASTERIDE 5 MG TAB PO SCH (08:57)
[2017-12-10] MEDS: CALCITRIOL 0.25 MCG CAP PO SCH (08:57)
[2017-12-10] MEDS: SENNOSIDES/DOCUSATE SODIUM TAB PO SCH ×2 (08:57→21:53)
[2017-12-10] MEDS: INSULIN LISPRO 100 UNIT/ML SC SCH ×3 (08:59→17:05)
--- NOTE | 2017-12-10 11:39 | SOAPPROG ---
SOAP Progress Note Assessment/Plan: Assessment: 1. crf: dialyzed /Wed for azotemia, creat increased today as expected. Would like to hold off on hd over weekend if possible to assess creat trend in effort to determine if any evidence of recovery. If remains hd-dependent Wednesday will likely need tunneled cath placed for outpt acute hd. Lives in [place], therefore could dialyze at [facility] [place]. Uo remains quite good, and I am cautiously optimistic that he will recover sufficient function to avoid esrd, though recovery could be prolonged. 2. chf: now post-op from cabg/mv repair. Vol status looks good. 3. anemia: stable, does not meet criteria for epo. 4. htn: controlled. Plan: 12/01/17 15:49 12/01/17 15:57 12/08/17 10:40 12/08/17 10:43 12/10/17 11:36 Subjective: Feeling well overall. Has been ambulating. Objective: Vital Signs Temp Pulse Resp BP Pulse Ox 36.7 C 102 H 19 109/60 93 12/10/17 07:23 12/10/17 07:23 12/10/17 07:23 12/10/17 07:23 12/10/17 07:23 Laboratory Results 12/10/17 06:15 12/10/17 06:15 12/09/17 12/10/17 12/11/17 05:59 05:59 05:59 Intake Total 1365 1420 Output Total 675 750 200 Balance 690 670 -200 PT 21.0 SEC (12.0-15.0) H 12/10/17 06:15 INR 1.80 (0.83-1.16) H 12/10/17 06:15 Physical Exam - Physical Exam General Appearance: no apparent distress Respiratory: decreased breath sounds (L base) Cardiac/Chest: regular rate, rhythm Abdomen: non-tender, soft Extremities: pedal edema (none) ICD10 Worksheet Patient Problems: Problems Problem Status Onset Acute blood loss anemia Acute CHF (congestive heart failure) Acute Cardiomegaly Acute Pleural effusion Acute S/P CABG x 4 Acute ~12/01/17 Shortness of breath Acute Status post mitral valve annuloplasty Acute ~12/01/17 CKD (chronic kidney disease) stage 4, GFR 15-29 ml/min Chronic Elevated troponin Acute Frequent PVCs Acute chronic disease mgmt/transitional care Acute
[2017-12-10] MEDS ORDERED: WARFARIN SODIUM 7.5 MG TAB PO ONE (16:00)
--- NOTE | 2017-12-10 16:29 | HOSPPROG ---
Hospitalist Progress Note Assessment/Plan: Assessment: 77 yo M presents for CABG/MVR/TVR c/b JENN on CKD, acute systolic CHF , consulted for DM2 # DM2. A1C 7.2%, he will likely require lantus at discharge b/c his renal fxn won't safely tolerate PO agents -cont lantus 4 -cont ISS -FBG 130, no dose adjustments required today (range 119-132) -d/w transitional care, patient will have his outpt DM2 managed by PCP Dr. Mueller # Atelectasis. Acute, present on CXR, cont encourage IS use Hospital medicine will continue to consult. Subjective: patient reports no BM, ambulating w/ walker Objective: Vital Signs Temp Pulse Resp BP Pulse Ox 37.0 C 106 H 20 128/55 H 91 L 12/10/17 11:42 12/10/17 11:42 12/10/17 11:42 12/10/17 11:42 12/10/17 11:42 Laboratory Results 12/10/17 06:15 12/10/17 06:15 12/09/17 12/10/17 12/11/17 05:59 05:59 05:59 Intake Total 1365 1420 600 Output Total 675 750 400 Balance 690 670 200 PT 21.0 SEC (12.0-15.0) H 12/10/17 06:15 INR 1.80 (0.83-1.16) H 12/10/17 06:15 - Physical Exam Constitutional: no apparent distress, not in pain, chronically ill appearing, No uncomfortable Cardiovascular: systolic murmur (I/ at sternum), tachycardia, edema (bilat LE , L>R), No irregularly irregular, No bradycardia Respiratory: inspiratory crackles (bilat bases), No reduced air movement, No expiratory wheeze, No bronchial breath sounds, No respiratory distress Gastrointestinal: No normoactive bowel sounds (hypoactive bowel sounds), No tenderness, No guarding, No distension Skin: other (ecchymoses LLE, no erythema/induration/tenderness sternal incision) Neurologic: AAOx3 Psychiatric: interacting appropriately, not anxious, not encephalopathic, thought process linear ICD10 Worksheet Patient Problems: Problems Problem Status Onset CKD (chronic kidney disease) stage 4, GFR 15-29 ml/min Chronic Acute blood loss anemia Acute Status post mitral valve annuloplasty Acute ~12/01/17 S/P CABG x 4 Acute ~12/01/17 chronic disease mgmt/transitional care Acute Frequent PVCs Acute CHF (congestive heart failure) Acute Elevated troponin Acute Pleural effusion Acute Cardiomegaly Acute Shortness of breath Acute
[2017-12-10] MEDS: HYDROCODONE/APAP 5/325 TAB PO PRN (17:50)
[2017-12-10] MEDS: INSULIN GLARGINE 100 UNITS/ML UNIT SC SCH (21:51)
[2017-12-10] MEDS: TAMSULOSIN HCL 0.4 MG CAP PO SCH (21:52)
[2017-12-11] MEDS: HYDROCODONE/APAP 5/325 TAB PO PRN (01:48)
[2017-12-11 05:52] LABS: INR 2.46 (0.83-1.16); PROTIME(PATIENT) 26.6 SEC (12.0-15.0)
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
[2017-12-11] MEDS: CALCITRIOL 0.25 MCG CAP PO SCH (08:05)
[2017-12-11] MEDS: PANTOPRAZOLE SODIUM 40 MG TAB PO SCH (08:05)
[2017-12-11] MEDS: FINASTERIDE 5 MG TAB PO SCH (08:05)
[2017-12-11] MEDS: CALCIUM ACETATE 667 MG CAP PO SCH ×3 (08:05→17:13)
[2017-12-11] MEDS: VENLAFAXINE HCL 75 MG TAB PO SCH (08:05)
[2017-12-11] MEDS: AMIODARONE HCL 200 MG TAB PO SCH ×2 (08:05→20:45)
[2017-12-11] MEDS: ASPIRIN EC 81 MG TAB PO SCH (08:05)
[2017-12-11] MEDS: INSULIN LISPRO 100 UNIT/ML SC SCH ×3 (08:11→19:57)
[2017-12-11] MEDS ORDERED: FUROSEMIDE 100 MG/10 ML VIAL IVP ONE (10:07)
--- NOTE | 2017-12-11 10:59 | SOAPPROG ---
SOAP Progress Note Assessment/Plan: Assessment: 1. CKD: Pt dialyzed /Wed for azotemia- Would like to hold off on hd over weekend if possible to assess creat trend in effort to determine if any evidence of recovery. If remains hd-dependent Wednesday will likely need tunneled cath placed for outpt acute hd (would go to [facility] CT surgery removed temp HD cath this am and giving lasix to augment UOP. No HD needs today-- I reviewed plan with pt and he understands he may still need HD at some point. Will change to renal diet to restrict K/Na/phos a bit more. 2. chf: now post-op from cabg/mv repair. Edema on exam today-- getting IV lasix. 3. anemia: stable, does not meet criteria for epo. Hb at goal. 4. mbd of ckd: continue Ca acteate binder with meals, renal diet. continue calcitriol I discussed with TJ Jacobs MD [facility] pager [phone] 12/11/17 11:55 Subjective: Feels ok- denies cp, sob. RN notes that CT surgery ordered HD cath removal this am and giving lasix. No n/v. Objective: Vital Signs Temp Pulse Resp BP Pulse Ox 36.7 C 111 H 20 109/51 L 94 12/11/17 08:00 12/11/17 08:00 12/11/17 08:00 12/11/17 08:00 12/11/17 08:00 Laboratory Results 12/10/17 06:15 12/11/17 05:30 12/10/17 12/11/17 12/12/17 05:59 05:59 05:59 Intake Total 1420 1800 Output Total 750 820 Balance 670 980 PT 26.6 SEC (12.0-15.0) H 12/11/17 05:30 INR 2.46 (0.83-1.16) H 12/11/17 05:30 Physical Exam - Physical Exam General Appearance: no apparent distress EENT: other (mmm) Neck: supple, other (ARJ HD cath site ok- cath out) Respiratory: lungs clear (ant bilat) Cardiac/Chest: regular rate, rhythm, other (sternal incision c/d/i) Abdomen: normal bowel sounds, non-tender, soft Skin: warm/dry Extremities: other (+edema bilat LE, warm) Neuro/Psych: alert, oriented x 3 ICD10 Worksheet Patient Problems: Problems Problem Status Onset Acute blood loss anemia Acute CHF (congestive heart failure) Acute Cardiomegaly Acute Pleural effusion Acute S/P CABG x 4 Acute ~12/01/17 Shortness of breath Acute Status post mitral valve annuloplasty Acute ~12/01/17 CKD (chronic kidney disease) stage 4, GFR 15-29 ml/min Chronic Elevated troponin Acute Frequent PVCs Acute chronic disease mgmt/transitional care Acute
[2017-12-11] MEDS: SENNOSIDES/DOCUSATE SODIUM TAB PO SCH ×2 (13:39→20:45)
--- NOTE | 2017-12-11 15:46 | HOSPPROG ---
Hospitalist Progress Note Assessment/Plan: Assessment: 77 yo M presents for CABG/MVR/TVR c/b JENN on CKD, acute systolic CHF , consulted for DM2 # DM2. A1C 7.2%, he will likely require lantus at discharge b/c his renal fxn won't safely tolerate PO agents, eating, had BM -cont lantus 4 -cont ISS -FBG 103, no dose adjustments required today (range 102-150) -patient will have his outpt DM2 managed by PCP Dr. Mueller # Atelectasis. Acute, present on CXR, cont encourage IS use Hospital medicine will continue to consult. Subjective: patient reports BM, no sig pain Objective: Vital Signs Temp Pulse Resp BP Pulse Ox 36.5 C 111 H 20 91/68 L 92 12/11/17 11:28 12/11/17 11:28 12/11/17 11:28 12/11/17 11:28 12/11/17 11:28 Laboratory Results 12/10/17 06:15 12/11/17 05:30 12/10/17 12/11/17 12/12/17 05:59 05:59 05:59 Intake Total 1420 1800 240 Output Total 750 820 350 Balance 670 980 -110 PT 26.6 SEC (12.0-15.0) H 12/11/17 05:30 INR 2.46 (0.83-1.16) H 12/11/17 05:30 - Physical Exam Constitutional: no apparent distress, appears nourished, not in pain, No uncomfortable Cardiovascular: systolic murmur (I/ at sternum), tachycardia, edema (1+ bilat LE), No irregularly irregular Respiratory: reduced air movement (bilat bases), No expiratory wheeze, No bronchial breath sounds, No respiratory distress Gastrointestinal: normoactive bowel sounds, soft, non-tender abdomen, no palpable masses, distension (mild) Skin: other (no erythema/induration/tenderness or separation at sternal surg site) Neurologic: AAOx3, No weakness (motor 5/5 bilat LE), No facial droop Psychiatric: interacting appropriately, not anxious, not encephalopathic, thought process linear ICD10 Worksheet Patient Problems: Problems Problem Status Onset CKD (chronic kidney disease) stage 4, GFR 15-29 ml/min Chronic Acute blood loss anemia Acute Status post mitral valve annuloplasty Acute ~12/01/17 S/P CABG x 4 Acute ~12/01/17 chronic disease mgmt/transitional care Acute Frequent PVCs Acute CHF (congestive heart failure) Acute Elevated troponin Acute Pleural effusion Acute Cardiomegaly Acute Shortness of breath Acute
[2017-12-11] MEDS ORDERED: WARFARIN SODIUM 5 MG TAB PO ONE (16:00)
[2017-12-11] MEDS: traMADol 50 MG TAB PO PRN (16:15)
[2017-12-11] MEDS: INSULIN GLARGINE 100 UNITS/ML UNIT SC SCH (20:44)
[2017-12-11] MEDS: TAMSULOSIN HCL 0.4 MG CAP PO SCH (20:45)
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
--- NOTE | 2017-12-12 07:47 | SOAPPROG ---
SOAP Progress Note Assessment/Plan: Assessment: 1. CKD: Pt dialyzed /Wed for azotemia- Would like to hold off on hd over weekend if possible to assess creat trend in effort to determine if any evidence of recovery. If remains hd-dependent Wednesday will need tunneled cath placed for outpt acute hd (would go to [facility])- temp HD cath removed Sat. No HD needs today. I discussed with his family in detail today-- tenatively will plan on TDC tomorrow and make NPO. Discussed it is too soon to declare ESRD and will need more time to see if sufficient recovery to come off HD for sure (pt and family ok with this plan). Discuss with CM placement at [facility]. 2. chf: now post-op from cabg/mv repair. Ok for prn lasix-- volume status better today but still up. Plans for SNF- I discussed with family. 3. anemia: stable, does not meet criteria for epo. Hb at goal. 4. mbd of ckd: continue Ca acteate binder with meals, renal diet. continue calcitriol I discussed with family and case management and CT surgery PA Hue Jacobs MD [facility] pager [phone] 12/12/17 08:56 12/12/17 08:56 Subjective: Eating breakfast when I came by. Feels ok- denies n/v, sob. Pain controlled. Discussed SNF and potential need for prolonged outpt HD in detail with pt and family today. Objective: Vital Signs Temp Pulse Resp BP Pulse Ox 36.8 C 106 H 20 112/54 L 93 12/12/17 04:00 12/12/17 04:00 12/12/17 04:00 12/12/17 04:00 12/12/17 04:00 Laboratory Results 12/10/17 06:15 12/12/17 03:59 12/11/17 12/12/17 12/13/17 05:59 05:59 05:59 Intake Total 1800 730 Output Total 820 1155 Balance 980 -425 PT 26.6 SEC (12.0-15.0) H 12/11/17 05:30 INR 2.46 (0.83-1.16) H 12/11/17 05:30 Physical Exam - Physical Exam EENT: other (mmm) Neck: supple Respiratory: lungs clear Cardiac/Chest: regular rate, rhythm, other (incision c/d/i) Abdomen: normal bowel sounds, non-tender, soft Skin: warm/dry Extremities: other (+edema (a bit better)) Neuro/Psych: alert, oriented x 3 ICD10 Worksheet Patient Problems: Problems Problem Status Onset Acute blood loss anemia Acute CHF (congestive heart failure) Acute Cardiomegaly Acute Pleural effusion Acute S/P CABG x 4 Acute ~12/01/17 Shortness of breath Acute Status post mitral valve annuloplasty Acute ~12/01/17 CKD (chronic kidney disease) stage 4, GFR 15-29 ml/min Chronic Elevated troponin Acute Frequent PVCs Acute chronic disease mgmt/transitional care Acute
[2017-12-12] MEDS: CALCIUM ACETATE 667 MG CAP PO SCH ×3 (08:27→18:12)
[2017-12-12] MEDS: INSULIN LISPRO 100 UNIT/ML SC SCH ×3 (08:31→17:43)
[2017-12-12] MEDS ORDERED: SODIUM POLY SULF 15 GM/60 ML BOTTLE PO ONE (09:19)
[2017-12-12] MEDS ORDERED: FUROSEMIDE 100 MG/10 ML VIAL IVP ONE (09:19)
[2017-12-12] MEDS: SENNOSIDES/DOCUSATE SODIUM TAB PO SCH ×2 (09:41→22:01)
[2017-12-12] MEDS: PANTOPRAZOLE SODIUM 40 MG TAB PO SCH (09:41)
[2017-12-12] MEDS: CALCITRIOL 0.25 MCG CAP PO SCH (09:41)
[2017-12-12] MEDS: ASPIRIN EC 81 MG TAB PO SCH (09:41)
[2017-12-12] MEDS: VENLAFAXINE HCL 75 MG TAB PO SCH (09:41)
[2017-12-12] MEDS: FINASTERIDE 5 MG TAB PO SCH (09:41)
[2017-12-12] MEDS: AMIODARONE HCL 200 MG TAB PO SCH ×2 (09:41→22:00)
[2017-12-12 11:13] LABS: INR 3.53 (0.83-1.16); PROTIME(PATIENT) 35.1 SEC (12.0-15.0)
[2017-12-12] MEDS ORDERED: oxyCODONE IR 5 MG TAB PO PRN (11:55)
[2017-12-12] MEDS: HYDROCORTISONE 1% CREAM TP SCH (15:49)
--- NOTE | 2017-12-12 16:18 | HOSPPROG ---
Hospitalist Progress Note Assessment/Plan: Assessment: 77 yo M presents for CABG/MVR/TVR c/b JENN on CKD, acute systolic CHF , consulted for DM2 # DM2. A1C 7.2%, he will likely require lantus at discharge b/c his renal fxn won't safely tolerate PO agents, eating, had BM -cont lantus 4, will require Rx at discharge -cont ISS -FBG 112, no dose adjustments required today (range 102-151) -patient will have his outpt DM2 managed by PCP Dr. Mueller # Atelectasis. Acute, present on CXR, cont encourage IS use and ambulation # Rash. 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 to ensure he's receiving application regularly, and spaced from his eucerin [facility] medicine will sign-off. Please connect with Dr. Travon Wilson if ongoing consultation is needed. Subjective: pruritic rash on back, uncomfortable at night b/c it gets on his sheets Objective: Vital Signs Temp Pulse Resp BP Pulse Ox 36.1 C 106 H 18 136/65 H 92 12/12/17 15:07 12/12/17 15:07 12/12/17 15:07 12/12/17 15:07 12/12/17 15:07 Laboratory Results 12/10/17 06:15 12/12/17 03:59 12/11/17 12/12/17 12/13/17 05:59 05:59 05:59 Intake Total 1800 730 220 Output Total 820 1155 750 Balance 980 -425 -530 PT 35.1 SEC (12.0-15.0) H 12/12/17 07:53 INR 3.53 (0.83-1.16) H 12/12/17 07:53 - Physical Exam Constitutional: no apparent distress, not in pain, chronically ill appearing, No uncomfortable Cardiovascular: systolic murmur (I. at apex), irregularly irregular, tachycardia, edema (trace RLE, 1+ LLE) Respiratory: reduced air movement (bilat bases), inspiratory crackles (bilat bases), No expiratory wheeze, No bronchial breath sounds, No respiratory distress Gastrointestinal: normoactive bowel sounds, soft, non-tender abdomen, no palpable masses, No distension Skin: other (papular, red lesions w/ some crusting, no confluent erythema, no induration) Neurologic: AAOx3 Psychiatric: interacting appropriately, not anxious, not encephalopathic, thought process linear ICD10 Worksheet Patient Problems: Problems Problem Status Onset CKD (chronic kidney disease) stage 4, GFR 15-29 ml/min Chronic Acute blood loss anemia Acute Status post mitral valve annuloplasty Acute ~12/01/17 S/P CABG x 4 Acute ~12/01/17 chronic disease mgmt/transitional care Acute Frequent PVCs Acute CHF (congestive heart failure) Acute Elevated troponin Acute Pleural effusion Acute Cardiomegaly Acute Shortness of breath Acute
[2017-12-12] MEDS: PHYTONADIONE 1 MG in NS 50 ML IV ONE ×2 (17:08→17:32)
[2017-12-12] MEDS: INSULIN GLARGINE 100 UNITS/ML UNIT SC SCH (22:00)
[2017-12-12] MEDS: TAMSULOSIN HCL 0.4 MG CAP PO SCH (22:00)
[2017-12-12] MEDS: SODIUM CL NASAL 45 ML BTL EACHNARE PRN (22:01)
[2017-12-13] MEDS: CANN-EASE 2 GM TUBE TP PRN (00:51)
[2017-12-13] MEDS: ACETAMINOPHEN 325 MG TAB PO PRN ×2 (00:51→19:59)
[2017-12-13 05:29] LABS: INR 1.82 (0.83-1.16); PROTIME(PATIENT) 21.2 SEC (12.0-15.0)
[2017-12-13] MEDS: CALCITRIOL 0.25 MCG CAP PO SCH (08:20)
[2017-12-13] MEDS: PANTOPRAZOLE SODIUM 40 MG TAB PO SCH (08:20)
[2017-12-13] MEDS: CALCIUM ACETATE 667 MG CAP PO SCH ×3 (08:20→17:14)
[2017-12-13] MEDS: ASPIRIN EC 81 MG TAB PO SCH (08:23)
[2017-12-13] MEDS: SENNOSIDES/DOCUSATE SODIUM TAB PO SCH ×2 (08:23→19:58)
[2017-12-13] MEDS: FINASTERIDE 5 MG TAB PO SCH (08:23)
[2017-12-13] MEDS: AMIODARONE HCL 200 MG TAB PO SCH ×2 (08:23→19:57)
[2017-12-13] MEDS: INSULIN LISPRO 100 UNIT/ML SC SCH ×3 (08:23→19:27)
[2017-12-13] MEDS: HYDROCORTISONE 1% CREAM TP SCH (09:00)
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
[2017-12-13] MEDS ORDERED: NALOXONE HCL 0.4 MG/ML INJ IVP PRN (10:29)
[2017-12-13] MEDS ORDERED: ceFAZolin 2 GM/DEXTROSE 100 ML IV ONE (10:29)
[2017-12-13] MEDS ORDERED: MEPERIDINE 25 MG/ML SYR IVP PRN (10:29)
[2017-12-13] MEDS ORDERED: GLUCAGON HCL 1 MG VIAL IVP PRN (10:29)
[2017-12-13] MEDS ORDERED: fentaNYL 100 MCG/2 ML INJ IVP PRN (10:29)
[2017-12-13] MEDS ORDERED: ALTEPLASE 2 MG VIAL IVP PRN (10:29)
[2017-12-13] MEDS ORDERED: MIDAZOLAM 2 MG/2 ML VIAL IVP PRN (10:29)
[2017-12-13] MEDS ORDERED: PROTAMINE SULFATE 50 MG/5 ML VIAL IVP PRN (10:29)
[2017-12-13] MEDS ORDERED: HEPARIN 10,000 UNIT/10 ML MDV (1,000 UNIT/ML) IVP PRN (10:29)
[2017-12-13] MEDS ORDERED: FLUMAZENIL 0.5 MG/5 ML MDV IVP PRN (10:29)
[2017-12-13] MEDS ORDERED: NS 1,000 ML IV SCH (10:30)
[2017-12-13] MEDS ORDERED: HEPARIN 50,000 UNIT/10 ML VIAL ONE (10:51)
--- NOTE | 2017-12-13 11:26 | PDPROPOC ---
Sedation Plan of Care Sedation Plan of Care: vital signs stable, mental status noted, patient educated of risks, benefits, alternatives, patient can tolerate sedation ASA Classification: ASA 4 Planned drugs: fentanyl, midazolam Mallampati Score: Class 1 Mallampati Reference Image: Patient passed 3-3-2 rule?: Yes
--- NOTE | 2017-12-13 11:54 | PDRADPN ---
Radiology Procedure Note Date of Procedure: 12/13/17 Radiologist: Britt Claire
--- NOTE | 2017-12-13 13:35 | SOAPPROG ---
SOAP Progress Note Assessment/Plan: Assessment: 1. crf: creat stable but bun climbing and now >100. Suspect will ultimately recover sufficient fxn to escape hd, but outpt hd until then would be prudent. Now s/p tunneled cath placement, working on placement [facility]. Anticipate these arrangements being completed by tomorrow, outpt schedule will be MWF on 1st shift. Will plan to dialyze here in am, hopefully pt can then d/c to snf and dialyze again Wed as outpt. 2. chf: now post-op from cabg/mv repair. Vol status looks good. 3. anemia: stable, can follow as outpt. 4. htn: controlled. Plan: 12/01/17 15:49 12/01/17 15:57 12/08/17 10:40 12/08/17 10:43 12/10/17 11:36 12/13/17 13:32 Subjective: S/p tunneled hd cath this am. Feeling well overall. Objective: Vital Signs Temp Pulse Resp BP Pulse Ox 36.5 C 100 22 H 125/64 H 100 12/13/17 13:14 12/13/17 13:14 12/13/17 13:14 12/13/17 13:14 12/13/17 13:14 Laboratory Results 12/10/17 06:15 12/13/17 04:30 12/12/17 12/13/17 12/14/17 05:59 05:59 05:59 Intake Total 730 1005 150 Output Total 1155 1550 200 Balance -425 -545 -50 PT 21.2 SEC (12.0-15.0) H 12/13/17 04:30 INR 1.82 (0.83-1.16) H 12/13/17 04:30 Physical Exam - Physical Exam General Appearance: no apparent distress Respiratory: decreased breath sounds (at bases) Cardiac/Chest: irregularly irregular Abdomen: soft Extremities: pedal edema (trace) ICD10 Worksheet Patient Problems: Problems Problem Status Onset Acute blood loss anemia Acute CHF (congestive heart failure) Acute Cardiomegaly Acute Pleural effusion Acute S/P CABG x 4 Acute ~12/01/17 Shortness of breath Acute Status post mitral valve annuloplasty Acute ~12/01/17 CKD (chronic kidney disease) stage 4, GFR 15-29 ml/min Chronic Elevated troponin Acute Frequent PVCs Acute chronic disease mgmt/transitional care Acute
[2017-12-13] MEDS ORDERED: WARFARIN SODIUM 5 MG TAB PO ONE (16:00)
[2017-12-13] MEDS: CARVEDILOL 3.125 MG TAB PO SCH (17:14)
[2017-12-13] MEDS: VENLAFAXINE HCL 75 MG TAB PO SCH (17:19)
[2017-12-13] MEDS: INSULIN GLARGINE 100 UNITS/ML UNIT SC SCH (19:57)
[2017-12-13] MEDS: TAMSULOSIN HCL 0.4 MG CAP PO SCH (19:58)
[2017-12-14] MEDS: ACETAMINOPHEN 325 MG TAB PO PRN ×2 (04:08→09:52)
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
[2017-12-14] MEDS: CALCIUM ACETATE 667 MG CAP PO SCH ×2 (08:47→12:13)
--- NOTE | 2017-12-14 09:07 | SOAPPROG ---
SOAP Progress Note Assessment/Plan: Assessment/Plan: 77 y/o M with a known h/o CKD who presented with volume overload found to have new CM with severe CAD and MR on cardiac cath now CABG and MV annuloplasty with JENN requiring dialysis. 1. JENN on CKD -baseline Cr 2.7 going into surgery -Cr appears to be plateauing, showing signs of recovery -monitor I/O's, 1500 UO yesterday -keep MAP>65, BP's 130's systolic today -patient getting dialysis today, has TDC and likely will continue to need acute dialysis at [facility] -august d/c today to go to HD tomorrow 2. CAD and MR -had run of afib, now on amio -CTS following 3. Anemia -blood loss reported as minimal -EPO as outpt 4. Hyperkalemia -resolved -renal diet 5. BMD -phos improved -started binder 12/06 -continue po calcitriol 12/14/17 09:08 Subjective: Currently on dialysis. Planning for SNF. Objective: Vital Signs Temp Pulse Resp BP Pulse Ox 36.5 C 81 23 H 130/67 H 90 L 12/14/17 03:10 12/14/17 03:10 12/14/17 03:10 12/14/17 03:10 12/14/17 03:10 Laboratory Results 12/14/17 07:35 12/14/17 07:35 12/13/17 12/14/17 12/15/17 05:59 05:59 05:59 Intake Total 1005 840 Output Total 1550 900 Balance -545 -60 PT REJ 12/14/17 07:35 INR TNP 12/14/17 07:35 Physical Exam - Physical Exam General Appearance: WD/WN, alert, no apparent distress EENT: PERRL/EOMI Neck: non-tender, full range of motion, supple Respiratory: decreased breath sounds, crackles Cardiac/Chest: edema, irregularly irregular Abdomen: normal bowel sounds, non-tender, soft Skin: warm/dry, pallor Extremities: normal range of motion, non-tender, pedal edema Neuro/Psych: normal mood/affect, oriented x 3 ICD10 Worksheet Patient Problems: Problems Problem Status Onset Acute blood loss anemia Acute CHF (congestive heart failure) Acute Cardiomegaly Acute Pleural effusion Acute S/P CABG x 4 Acute ~12/01/17 Shortness of breath Acute Status post mitral valve annuloplasty Acute ~12/01/17 CKD (chronic kidney disease) stage 4, GFR 15-29 ml/min Chronic Elevated troponin Acute Frequent PVCs Acute chronic disease mgmt/transitional care Acute
[2017-12-14] MEDS: traMADol 50 MG TAB PO PRN (09:52)
[2017-12-14] MEDS: INSULIN LISPRO 100 UNIT/ML SC SCH ×2 (12:09→12:10)
[2017-12-14] MEDS: CALCITRIOL 0.25 MCG CAP PO SCH (12:12)
[2017-12-14] MEDS: FINASTERIDE 5 MG TAB PO SCH (12:12)
[2017-12-14] MEDS: SENNOSIDES/DOCUSATE SODIUM TAB PO SCH (12:12)
[2017-12-14] MEDS: VENLAFAXINE HCL 75 MG TAB PO SCH (12:13)
[2017-12-14] MEDS: ASPIRIN EC 81 MG TAB PO SCH (12:13)
[2017-12-14] MEDS: PANTOPRAZOLE SODIUM 40 MG TAB PO SCH (12:13)
[2017-12-14] MEDS: AMIODARONE HCL 200 MG TAB PO SCH (12:13)
[2017-12-14] MEDS: HYDROCORTISONE 1% CREAM TP SCH (12:16)
[2017-12-14] MEDS: CARVEDILOL 3.125 MG TAB PO SCH (12:18)
[2017-12-14] MEDS ORDERED: HEPARIN 50,000 UNIT/10 ML VIAL ONE (12:55)
[2017-12-14 13:25] LABS: INR 1.94 (0.83-1.16); PROTIME(PATIENT) 22.2 SEC (12.0-15.0)
--- NOTE | 2017-12-14 15:06 | PDIAF ---
- Diagnosis Diagnosis: CAD, MR, ISCM, CKD, DM s/p CABG, MV rpr, dialysis cath Code Status: Full Code - Medication Management Discharge Medications: Medications to Continue on Transfer Allopurinol [Allopurinol 100 MG (*)] 200 mg PO DAILY 06/11/17 [Last Taken ] Finasteride [Proscar 5 MG (*)] 5 mg PO DAILY 06/11/17 [Last Taken 11/24/17] Venlafaxine HCl [Venlafaxine 75MG (*)] 75 mg PO DAILY 06/11/17 [Last Taken 11/24] Calcitriol [Calcitriol (*)] 0.25 mcg PO DAILY 11/24/17 [Last Taken 11/24/17] Cholecalciferol Vit D3 [Vitamin D3 (*)] 1,000 units PO DAILY 11/24/17 [Last Taken 11/24/17] Omeprazole 20 mg PO DAILY 11/24/17 [Last Taken 11/24/17] Acetaminophen [Tylenol 325mg (*)] 650 mg PO Q4HRS PRN tab 12/14/17 [Last Taken Unknown] Amiodarone HCl [Pacerone (*)] 200 mg PO DAILY tab 12/14/17 [Last Taken Unknown] Aspirin EC [Aspirin EC 81 mg (*)] 81 mg PO DAILY tab 12/14/17 [Last Taken Unknown] Benzocaine/Menthol 15/ [Cepacol Lozenge] 1 ea PO Q2HRS PRN lozenge 12/14/17 [ Last Taken Unknown] Calcium Acetate [Phoslo (*)] 1,334 mg PO TIDMEAL cap 12/14/17 [Last Taken Unknown] Carvedilol [Coreg (*)] 3.125 mg PO BIDMEAL tab 12/14/17 [Last Taken Unknown] Dextrose 50% Syringe 25 gm IVP PRN PRN syr 12/14/17 [Last Taken Unknown] Hydrocortisone 1% [Hydrocortisone 1% cream (*)] 1 clinton TP DAILY10 PRN cream 02/20 [Last Taken Unknown] Insulin Glargine [Lantus Syringe] 4 units SC HS unit 12/14/17 [Last Taken Unknown] Insulin Lispro [HumaLOG LISPRO] 0 unit SC TIDMEAL unit 12/14/17 [Last Taken Unknown] Ondansetron Odt [Zofran Odt 4 mg (*)] 4 mg PO Q4HRS PRN tab 12/14/17 [Last Taken Unknown] Polyethylene Glycol 3350 [Miralax 17 gm (*)] 17 gm PO DAILY PRN pkt 12/14/17 [ Last Taken Unknown] Sennosides/Docusate Sodium [Senokot-S] 1 - 2 tab PO BID PRN tab 12/14/17 [Last Taken Unknown] Tamsulosin HCl [Flomax 0.4 MG (*)] 0.4 mg PO HS cap 12/14/17 [Last Taken Unknown] Warfarin Sodium [Coumadin 2.5MG (*)] 2.5 mg PO DAILY AT 4PM tab 12/14/17 [Last Taken Unknown] traMADol [Ultram 50 mg (*)] 50 mg PO Q6HRS PRN tab 12/14/17 [Last Taken Unknown ] Additional Medication Instructions: Discontinue amiodarone after 12/28 dose. Hold aspirin for INR > 3. Nephrology/[facility] to order labs and manage fluid balance. Contact PCP for any concerns re insulin or accucheck results Discharge Medications: Refer to the Discharge Home Medication list for PRN reason. PICC Care - Routine: N/A - Orders Services needed: Registered Nurse (cardiorespiratory monitoring, dialysis catheter care, wound monitoring), Physical Therapy (2x daily; sternal precautions x 2 more weeks), Occupational Therapy (daily; sternal precautions x 2 more weeks) Isolation Type: None Oxygen: prn SpO2 < 90% Diet Recommendation: potassium restricted Diet Texture: Regular Texture Diet, Thin Liquids, Meds Whole in Puree Weigh Patient: daily Neumann: Not applicable Wound Care Instructions: Daily soap and water. Ok to leave all wounds open to air Activity/Weight Bearing Restrictions: Sternal precautions x 2 more weeks. Avoid push pull activities. Avoid lifting > 10 lbs with an outstretched arm Additional Instructions: Call [facility] cardiac rehab to enroll in phase 2 classes once released from [facility]. Sternal precautions x 2 more weeks. Avoid lifting > 10lbs with an outstretched arm. Avoid push/pull activities. Cleanse wounds once daily with soap and water. Avoid underwater immersion (pool , hot tub, bath) until scabs off. Ok to leave all wounds open to air. Avoid creams or ointments until scabs off. Elevate low legs at rest. Avoid prolonged standing or dangling. Log daily vital signs: weight, resting heart rate over 1 minute, blood pressure , +/- pulse oximetry. Call [facility] for overnight weight gain > 2lbs, weekly gain > 5lbs or worsening leg swelling. Call [facility] for resting heart rate > 120 or < 60 OR for systolic blood pressure consistently < 90 or > 150. Target oxygen saturation > 89%. Adjustments per rehab. Please obtain a chest xray prior to surgical appointment. Use requisition form attached to appointment card. Chest x-rays don't require an appointment. Go to the Emergency Room entrance at the [facility] location. Sign in at the computer kiosk in the entryway. You will be given a number & may sit in the waiting area until called. You will be registered and directed to Imaging on the 1st floor. This process can take up to an hour. Please allow at least 30 min before your appt to get x-ray taken. Ok to use [id number] medications for iron supplementation, bowel function or pain. Consider Tylenol 500-650 mg with meals and before bed. Max daily dose of Tylenol 3000 mg. Avoid nonsteroidal anti-inflammatories (ie. Ibuprofen, advil, motrin, aleve) for negative effect on kidney function. - Labs/Radiology PT/INR Date: 12/16/17 (check at least 2x weekly until INR stable in therapeutic range) Other Lab Name, Date and Time: Fingerstick blood glucose AC and HS. Call PCP with any questions/concerns. Imaging Orders: chest xray prior to surgical appointment - Follow Up Care Current Providers and Referrals: Shahriar Shah MD [Medical Doctor] - 12/24/17 9:30 am Jimbo Patel DO [Doctor of Osteopathy] - 12/21/17 11:30 am Bill Mueller DO [Primary Care Provider] - As per Instructions
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
--- NOTE | 2017-12-14 15:59 | ASMTDCNOTE ---
Case Management Discharge Discharge Order Complete? Answers: Yes Patient to Obtain Answers: Other Notes: Powerback Medications Transportation Arranged Answers: Other Notes: powerback arranged transport w/c Transport will Pick (Date 12/14/2017 05:00 PM & Time) Faxed Final Orders Answers: Yes Agency/Facility Transfer Answers: Yes Report Printed & Faxed to Receiving Agency Family Notified Answers: Yes Notes: ohone call to daughter Courtney Discharge Comments Notes: 12/14/2017 Case Management Note Pt to discharge to [facility]. Dialysis is scheduled for [facility] this week at 10:30. Next week dialysis MWF 1:00 chair time. Notified family. Faxed final orders. Powerback arranged transport. RN called report. Date Signed: 12/14/2017 03:58 PM Electronically Signed By:Meghan Barber RN
--- NOTE | 2017-12-14 15:59 | ASDISCHSUM ---
Discharge Information Plan Status:SNF Medically Cleared to Leave:12/14/2017 Discharge Date:12/14/2017 CM D/C Disposition:Group Home Facility ADT D/C Disposition:Group Home Facility Projected Discharge Date:12/07/2017 11:00 AM Transportation at D/C:Wheelchair Van Discharge Delay Reason: Follow-Up Date:12/07/2017 11:00 AM Discharge Slot: Final Diagnosis: Placement Information Referral Type:Palliative Care Referral ID:[id number] Provider Name:[facility] Address 1[address] [facility] Phone Number: Address 2: Fax Number: [facility]:[place] Selection Factors: State:[place] Referral Type:*Retirement/SNF Referral ID:[id number] [facility] Address 1[address] [facility] Phone Number: Address 2: Fax Number: [facility]:[place] Selection Factors: State:[place] Patient Contact Information Contact Name:MANI Relationship:Brothmaggie Address: Home Phone: City: Alternate Phone: State/Zip Code: Email: Financial Information Financial Class:Medicare Primary Plan Desc:MEDICARE INPATIENT Primary Plan Number:[id number] Secondary Plan Desc: Secondary Plan Number: Assessment Information LACE LACE Acuity / Level of Answers: Yes Care: Did the patient have an inpatient admission? Comorbidities - select Answers: Congestive heart failure all that apply Moderate or severe liver or renal disease Opioid dependence / Chronic pain Other Notes: HTN; TBI # of Emergency department Answers: 1-2 visits in the last 6 months Social determinants Answers: Mental health diagnosis (anxiety, depression, pers onality disorders, etc.) Score: 18 Date Signed: 11/25/2017 08:59 AM Electronically Signed By:Nery Buckley [facility] CM Progress Note CM Note CM Note Notes: 11/25/2017 Case Management Note Met w/pt during rounds. Pt admitted for CHF exacerbation with chronic renal insufficiency. Reviewed chart. Pt lives with a room mate in a condo. Pt brother Asad can be reached at [phone]. Transitional Care RN to follow at d/c. PT OT roland are pending. Case Management d/c poc: to be determined. Case Management to follow. Date Signed: 11/25/2017 04:16 PM Electronically Signed By:Meghan Barber RN [facility] CM Progress Note CM Note CM Note Notes: Pt admitted for CHF exacerbation with chronic renal insufficiency. Pt lives with a room mate in a condo. Pt brother Asad can be reached at [phone]. Introduced patient to concept of palliative care and explained that furniture technician would be by in next few days to discuss it further with him. Pt given handouts regarding Palliative care. Transitional Care RN to follow at d/c. PT OT roland are pending. Case Management d/c poc: to be determined. Case Management to follow. Date Signed: 11/26/2017 12:32 PM Electronically Signed By:Cara Tamayo [facility] CM Progress Note CM Note CM Note Notes: 11/26/2017 Case Management note Discussed palliative care. Pt requested referral to [facility]. Faxed via all scripts. Discussed w/ Johnathon to visit with pt prior to discharge. Date Signed: 11/26/2017 05:17 PM Electronically Signed By:Meghan Barber RN [facility] CM Progress Note CM Note CM Note Notes: [facility] came and met w/ pt. Pt would like to hold off on making a decision until surgery and after talking to his brother. Needs are TBD at this time. CM to follow. Plan: TBD Date Signed: 11/28/2017 02:19 PM Electronically Signed By:MONIQUE Currie [facility] CM Progress Note CM Note CM Note Notes: Pt is having valve surgery today w/ Dr. Patel. Needs are TBD at this time. CM will follow recommendations by Dr. Patel and his team. CM to follow. Plan: TBD Date Signed: 12/01/2017 02:34 PM Electronically Signed By:MONIQUE Currie [facility] CM Progress Note CM Note CM Note Notes: Spoke with patient's nurse who states patient has a son, Sam and daughter, Courtney and they will be back tomorrow. Still awaiting therapy evals as patient is not yet ready for PT due to femoral artery lines. Will begin discussion with patient's kids tomorrow to get their preferences regarding any rehab facilities. Also awaiting Dr. Patel's direction for d/c plan. CM will follow. Date Signed: 12/02/2017 04:33 PM Electronically Signed By:Geneva Reis LCSW [facility] Progress Note CM Note CM Note Notes: Spoke with patient's son, Sam about recommendations for SNF rehab. He agrees his father is going to need to get stronger before returning home. Sam is going to have to return to [place] next week and his sister is in [place]. The patient has 2 brothers, Asad ([phone]) and Shyla ([phone]) who do live in [place]. Sam thinks a facility in [place] might be good so the 2 brothers can get there more often to visit. Referrals have been made to [facility], [facility] and [facility] via [facility]. Patient himself lives in [place]. Sam states all family members are busy with their own families and jobs and will not be able to care for patient at d/c. Patient's daughter may have some input about facilities here in the [place] area as she used to live here before going to [facility]. CM will follow. Date Signed: 12/04/2017 12:56 PM Electronically Signed By:Geneva Reis LCSW [facility] Progress Note CM Note CM Note Notes: Met with patient's family and per discussion they wish for him to go to [facility] over other potential facilities. Call to Ava Yoo as they have questions regarding his insurance coverage. CM to follow. Plan: To [facility]. Date Signed: 12/07/2017 12:41 PM Electronically Signed By:Clover Ellington RN [facility] Progress Note CM Note CM Note Notes: CM spoke to pts ashlee Knight. Her first choice is [facility]. CM spoke to JUN Witt. Eduar is anticipating d/c for early next week. He is hoping that pt can d/c without dialysis. Updates sent to [facility]. CM to follow. Plan: [facility] Date Signed: 12/09/2017 02:25 PM Electronically Signed By:MONIQUE Currie Case Management Discharge Plan Note Case Management Discharge Discharge Order Complete? Answers: Yes Patient to Obtain Answers: Other Notes: Powerback Medications Transportation Arranged Answers: Other Notes: powerback arranged transport w/c Transport will Pick (Date 12/14/2017 05:00 PM & Time) Faxed Final Orders Answers: Yes Agency/Facility Transfer Answers: Yes Report Printed & Faxed to Receiving Agency Family Notified Answers: Yes Notes: ohone call to ashlee Valdez Discharge Comments Notes: 12/14/2017 Case Management Note Pt to discharge to [facility]. [facility] at 10:30. Next week dialysis MWF 1:00 chair time. Notified family. Faxed final orders. [facility] arranged transport. RN called report. Date Signed: 12/14/2017 03:58 PM Electronically Signed By:Meghan Barber RN Intervention Information Intervention Type:*IM-Signed Date of Service:12/14/2017 03:30 PM Patient Type:Inpatient Staff Member:Nery Buckley Hours: Discipline: Severity: Comment:
[2017-12-14] MEDS ORDERED: WARFARIN SODIUM 2.5 MG TAB PO SCH (16:00)
[2017-12-14 16:37] VITALS: BP 99/46
== END 2017-12-14 17:14 | DRG 216 ==
LOC: F2W 15:24 → F2N 12-01 10:07 → F2W 12-06 12:06
PROVIDERS: ADMIT Student in an Organized Health Care Education/Training Program; ATTEND Thoracic Surgery (Cardiothoracic Vascular Surgery)
PROC: 4A023N8 Measurement of Cardiac Sampling and Pressure, Bilateral, Percutaneous Approach (ICD-10-PCS; 2017-11-27)
PROC: 021209W Bypass Coronary Artery, Three Arteries from Aorta with Autologous Venous Tissue, Open Approach (ICD-10-PCS; principal; 2017-12-01 08:45)
PROC: 02L70CK Occlusion of Left Atrial Appendage with Extraluminal Device, Open Approach (ICD-10-PCS; principal; 2017-12-01 08:45)
PROC: 02100Z9 Bypass Coronary Artery, One Artery from Left Internal Mammary, Open Approach (ICD-10-PCS; principal; 2017-12-01 08:45)
PROC: 06BQ4ZZ Excision of Left Saphenous Vein, Percutaneous Endoscopic Approach (ICD-10-PCS; principal; 2017-12-01 08:45)
PROC: 02UG0JZ Supplement Mitral Valve with Synthetic Substitute, Open Approach (ICD-10-PCS; principal; 2017-12-01 08:45)
PROC: 5A1221Z Performance of Cardiac Output, Continuous (ICD-10-PCS; principal; 2017-12-01 08:45)
PROC: 30233N1 Transfusion of Nonautologous Red Blood Cells into Peripheral Vein, Percutaneous Approach (ICD-10-PCS; 2017-12-04)
PROC: 02H633Z Insertion of Infusion Device into Right Atrium, Percutaneous Approach (ICD-10-PCS; 2017-12-07)
PROC: 5A1D70Z Performance of Urinary Filtration, Intermittent, Less than 6 Hours Per Day (ICD-10-PCS; 2017-12-07)
PROC: 02HV33Z Insertion of Infusion Device into Superior Vena Cava, Percutaneous Approach (ICD-10-PCS; 2017-12-14)
DX: I13.0 Hypertensive heart and chronic kidney disease with heart failure and stage 1 through stage 4 chronic kidney disease, or unspecified chronic kidney disease (principal); I50.21 Acute systolic (congestive) heart failure; J96.01 Acute respiratory failure with hypoxia; N17.9 Acute kidney failure, unspecified; N18.4 Chronic kidney disease, stage 4 (severe); D62 Acute posthemorrhagic anemia; I25.10 Atherosclerotic heart disease of native coronary artery without angina pectoris; I42.0 Dilated cardiomyopathy; I08.1 Rheumatic disorders of both mitral and tricuspid valves; D53.9 Nutritional anemia, unspecified; R33.8 Other retention of urine; I48.0 Paroxysmal atrial fibrillation; E11.65 Type 2 diabetes mellitus with hyperglycemia; E66.9 Obesity, unspecified; Z87.891 Personal history of nicotine dependence; E78.5 Hyperlipidemia, unspecified; I65.23 Occlusion and stenosis of bilateral carotid arteries
CPT/HCPCS: 36415-PO; 82435-PO; 82565-PO; 82947-PO; 82947-QW; 83605-PO; 84132-PO; 84295-PO; 84484-PO; 84520-PO; 85014-PO; 86705-90; 92526-GN; 92610-GN; 96374; 97110-GO; 97116-GP; 97161-GP; 97164-GP; 97165-GO; 97168-GO; 97530-GO; 97530-GP; 97535-GO; C1750; C1760; G0472; G8978-GP-CI; G8978-GP-CK; G8978-GP-CM; G8979-GP-CI; G8979-GP-CJ; G8987-GO-CK; G8987-GO-CL; G8988-GO-CH; G8988-GO-CJ; G8996-GN-CI; G8997-GN-CH; G8998-GN-CH; J0153; J0171; J0282; J0461; J0690; J1265; J1644; J1815; J1940; J2001; J2150; J2250; J2260; J2270; J2370; J2405; J2440; J2704; J2720; J2765; J2930; J3010; J3430; J3475; J3480; J7060; P9016; P9041; Q9967

== ENCOUNTER → 2017-12-21 | Outpatient (CLI) | payer OTHER | LOC: FIMAGING 10:25 → EDSTATUS 10:27 | PROVIDERS: ATTEND Thoracic Surgery (Cardiothoracic Vascular Surgery) | DX: Z09 Encounter for follow-up examination after completed treatment for conditions other than malignant neoplasm (principal); Z95.1 Presence of aortocoronary bypass graft; Z95.2 Presence of prosthetic heart valve; Z98.890 Other specified postprocedural states ==

== ENCOUNTER 2018-01-04 17:38 | Emergency (ER) | payer OTHER ==
--- NOTE | 2018-01-04 17:50 | EDPHY ---
H & P Time Seen by Provider: 01/04/18 17:48 HPI/ROS: CHIEF COMPLAINT: Dizzy and standing HISTORY OF PRESENT ILLNESS: This 77-year-old man has history of cardiomyopathy and was discharged from the hospital recently as noted under past medical history. He was on dialysis until 7 days ago. He presents today with severe dizziness and lightheadedness on standing, his systolic blood pressure taken by his home health nurse was only 80 on standing today. He additionally has lost about 13 lb over the past week and feels dehydrated. He did not eat much over the past few days, only half a sandwich today, and has not been drinking enough water per his report. He does make urine. He has not had vomiting or diarrhea. He did not have chest pain or shortness of breath or actually have syncope or passing out. REVIEW OF SYSTEMS: Eye: no change in vision ENT: no sore throat Cardiac: no chest pain or syncope Pulmonary: 3 L nasal cannula, no change in Respiratory symptoms. Abdomen: no vomiting, diarrhea, abdominal pain Musculoskeletal: Chest incision still hurts from his recent surgery but unchanged. No peripheral edema. Skin: no rash Neuro: no headache Constitutional: no fever : no urinary symptoms A comprehensive 10 point review of systems is otherwise negative aside from elements mentioned in the history of present illness. PAST MEDICAL HISTORY: History and physical dated 11/24/2017 and discharge summary dated 12/14/2017 both reviewed personally. Includes congestive heart failure, mitral ring annuloplasty, coronary artery bypass grafting, chronic kidney disease with elevated creatinine, dilated cardiomyopathy, hypertension, diabetes Social history: Here with family including his brother General Appearance: Alert and conversant, cooperative. Eyes: No scleral icterus. ENT, Mouth: Slightly dry mucous membranes. Respiratory: Slightly decreased sounds at the bases but otherwise lungs are clear, no wheezing or rhonchi. Cardiovascular: Regular rate and rhythm. Gastrointestinal: Abdomen is soft and non tender. Neurological: Alert, face symmetric, normal motor and sensory in extremities. Skin: Warm and dry, no rashes. Musculoskeletal: No peripheral edema. Psychiatric: Not agitated. Emergency Department course/MDM: Plan for EKG, chest x-ray, labs to include electrolytes and creatinine. 1913: Feels better, not dizzy, road test at this time. Plan to discharge if is symptomatically improved and not hypotensive. Ambulatory, not dizzy at this time. Patient wants to go home which I think is reasonable. More likely orthostatic hypotension from dehydration evidence by dry mucous membranes, 13 lb weight loss. He still making urine and has a normal potassium, does not appear to acutely require dialysis. 1922: discussed with Sarath for [place]. Will follow up closely. Smoking Status: Former smoker Constitutional: Initial Vital Signs Temperature (C) 36.9 C 01/04/18 17:39 Heart Rate 90 01/04/18 17:39 Respiratory Rate 16 01/04/18 17:39 Blood Pressure 112/60 01/04/18 17:39 O2 Sat (%) 95 01/04/18 17:39 O2 Delivery Mode Room Air O2 (L/minute) 3 Allergies/Adverse Reactions: erythromycin base Allergy (Verified 11/24/17 14:14) Vomiting [id number] Reductase Inhibitor Allergy (Verified 12/13/17 10:52) Dizziness Home Medications: Medication Instructions Recorded Finasteride [Proscar 5 MG (*)] 5 mg PO DAILY 06/11/17 Venlafaxine HCl [Venlafaxine 75MG 75 mg PO DAILY 06/11/17 (*)] Calcitriol [Calcitriol (*)] 0.25 mcg PO DAILY 11/24/17 Cholecalciferol Vit D3 [Vitamin D3 1,000 units PO DAILY 11/24/17 (*)] Omeprazole 20 mg PO DAILY 11/24/17 Amiodarone HCl [Pacerone (*)] 200 mg PO DAILY tab 12/14/17 Carvedilol [Coreg (*)] 3.125 mg PO BIDMEAL tab 12/14/17 Warfarin Sodium [Coumadin 2.5MG 2.5 mg PO DAILY AT 4PM tab 12/14/17 (*)] traMADol [Ultram 50 mg (*)] 50 mg PO Q6HRS PRN tab 12/14/17 Lisinopril 01/04/18 Spironolactone 01/04/18 Medical Decision Making - Diagnostics EKG Interpretation: 12-lead EKG interpreted by me; official reading is in computer system. My interpretation is sinus rhythm with LVH and nonspecific lateral T-wave abnormalities. Imaging Results: Imaging Impressions Chest X-Ray 01/04/18 18:10 Impression: 1. Status post cardiac surgery with moderate cardiac enlargement. 2. Small right pleural effusion. Left pleural effusion is nearly completely resolved.. Imaging: I viewed and interpreted images myself Differential Diagnosis: Differential considered including but not limited to cardiomyopathy, dysrhythmia , dehydration, other metabolic abnormality, acute neurologic event - Data Points Laboratory Results: Laboratory Results 01/04/18 17:57 01/04/18 17:57 01/04/18 01/04/18 01/04/18 17:58 17:57 17:57 WBC RBC Hgb Hct MCV MCH MCHC RDW Plt Count MPV Neut % (Auto) Lymph % (Auto) [place] % (Auto) Eos % (Auto) Baso % (Auto) Nucleat RBC Rel Count Absolute Neuts (auto) Absolute Lymphs (auto) Absolute Monos (auto) Absolute Eos (auto) Absolute Basos (auto) Absolute Nucleated RBC Immature Gran % Immature Gran # PT 16.7 SEC H SEC (12.0-15.0) INR 1.33 H (0.83-1.16) Sodium 136 mEq/L mEq/L (135-145) Potassium 4.6 mEq/L mEq/L (3.3-5.0) Chloride 95 mEq/L L mEq/L (97-110) Carbon Dioxide 29 mEq/l mEq/l (22-31) Anion Gap 12 mEq/L mEq/L (8-16) BUN 70 mg/dL H mg/dL (7-23) Creatinine 3.6 mg/dL H mg/dL (0.7-1.3) Estimated GFR 16 Glucose 115 mg/dL H mg/dL (70-100) Calcium 9.4 mg/dL mg/dL (8.5-10.4) POC Troponin I 0.04 ng/mL ng/mL (0.00-0.08) NT-Pro-B Natriuret Pep 38494 pg/mL H pg/mL (0-450) 01/04/18 17:57 WBC 8.14 10^3/uL 10^3/uL (3.80-9.50) RBC 3.33 10^6/uL L 10^6/uL (4.40-6.38) Hgb 9.9 g/dL L g/dL (13.7-17.5) Hct 31.2 % L % (40.0-51.0) MCV 93.7 fL fL (81.5-99.8) MCH 29.7 pg pg (27.9-34.1) MCHC 31.7 g/dL L g/dL (32.4-36.7) RDW 15.6 % H % (11.5-15.2) Plt Count 339 10^3/uL 10^3/uL (150-400) MPV 10.0 fL fL (8.7-11.7) Neut % (Auto) 50.8 % % (39.3-74.2) Lymph % (Auto) 24.2 % % (15.0-45.0) [place] % (Auto) 10.4 % % (4.5-13.0) Eos % (Auto) 13.6 % H % (0.6-7.6) Baso % (Auto) 0.6 % % (0.3-1.7) Nucleat RBC Rel Count 0.0 % % (0.0-0.2) Absolute Neuts (auto) 4.13 10^3/uL 10^3/uL (1.70-6.50) Absolute Lymphs (auto) 1.97 10^3/uL 10^3/uL (1.00-3.00) Absolute Monos (auto) 0.85 10^3/uL H 10^3/uL (0.30-0.80) Absolute Eos (auto) 1.11 10^3/uL H 10^3/uL (0.03-0.40) Absolute Basos (auto) 0.05 10^3/uL 10^3/uL (0.02-0.10) Absolute Nucleated RBC 0.00 10^3/uL 10^3/uL (0-0.01) Immature Gran % 0.4 % % (0.0-1.1) Immature Gran # 0.03 10^3/uL 10^3/uL (0.00-0.10) PT INR Sodium Potassium Chloride Carbon Dioxide Anion Gap BUN Creatinine Estimated GFR Glucose Calcium POC Troponin I NT-Pro-B Natriuret Pep Medications Given: Discontinued Medications Sodium Chloride (Ns) 500 mls @ 1,000 mls/hr IV EDNOW ONE PRN Reason: Protocol Stop: 01/04/18 19:11 Last Admin: 01/04/18 18:46 Dose: 500 mls Point of Care Test Results: Chemistry 01/04/18 17:58 POC Troponin I 0.04 ng/mL ng/mL (0.00-0.08) Departure - Departure Disposition: Home, Routine, Self-Care Clinical Impression: Orthostatic hypotension Condition: Good Instructions: Dehydration (ED), Hypotension (ED) Referrals: Bill Mueller DO [Primary Care Provider] - As per Instructions Shahriar Shah MD [Medical Doctor] - As per Instructions
--- NOTE | 2018-01-04 18:11 | CPEKG ---
Test Reason : OPEN Blood Pressure : / mmHG Vent. Rate : 089 BPM Atrial Rate : 089 BPM P-R Int : 204 ms QRS Dur : 089 ms QT Int : 386 ms P-R-T Axes : 059 053 131 degrees QTc Int : 470 ms Sinus rhythm Probable LVH with secondary repol abnrm Confirmed by Daniel Cabezas ([id number]) on 01/04/2018 6:10:53 PM Referred By: Confirmed By:Daniel Cabezas
[2018-01-04 18:33] LABS: PLATELET COUNT 339 10^3/uL (150-400)
[2018-01-04] MEDS ORDERED: NS 500 ML IV ONE (18:42)
[2018-01-04 18:58] LABS: INR 1.33 (0.83-1.16)
[2018-01-04 19:30] LABS: PROTIME(PATIENT) 16.7 SEC (12.0-15.0)
[2018-01-04 19:46] VITALS: BP 137/67
--- NOTE | 2018-01-04 20:43 | ASMTCMCOM ---
CM Note CM Note Notes: Pt presented to the ED for low blood pressure and dizziness. Pt was recently admitted 11/24 - 12/14/17 for CHF exacerbation and severe CAD; pt had right and left cardiac cath on 11/27 and had CABG w/Dr Patel on 12/01. Pt also had right subclavian tunneled dialysis catheter placed on 12/13 (pt is [facility]). On 12/14 pt was discharged to [facility]. Pt states he returned home last week w/Bernard ; this CM sent ED visit notes/updates via [employer] Pt states an RN is visiting tomorrow to go over his medications, etc and that PT/OT have been visiting. Pt also has home oxygen and reports no issues. Pt is followed by [facility] and pt states he spoke w/Velma Pascual ([phone]) today. Pt states he has an appt on 01/13 w/Dr Shah. Pt accompanied to the ED by his brother, Asad, who will transport pt home. CM available for further assistance if needed. Date Signed: 01/04/2018 08:43 PM Electronically Signed By:Mamie Ely RN
--- NOTE | 2018-01-04 20:49 | ASDISCHSUM ---
Discharge Information Plan Status:Home with Home Health Medically Cleared to Leave: Discharge Date:01/04/2018 07:45 PM CM D/C Disposition:Home Health Service ADT D/C Disposition:Home, Routine, Self-Care Projected Discharge Date:01/04/2018 09:00 PM Transportation at D/C:Family Discharge Delay Reason: Follow-Up Date:01/04/2018 09:00 PM Discharge Slot: Final Diagnosis: Placement Information Referral Type:*Home Health Care Services Referral ID:[id number] Provider [facility] Address 1:[address] Address 2: City:[place] Selection Factors: State:[place] Patient Contact Information Contact Name:MANI Relationship: Address: Home Phone: City: [facility] Phone: [facility] Code: Email: Financial Information Financial Class:Medicare Primary Plan Desc:MEDICARE OUTPATIENT Primary Plan Number:[id number] Secondary Plan Desc:[facility] Secondary Plan Number:[id number] Assessment Information [facility] CM Progress Note CM Note CM Note Notes: Pt presented to the ED for low blood pressure and dizziness. Pt was recently admitted 11/24 - 12/14/17 for CHF exacerbation and severe CAD; pt had right and left cardiac cath on 11/27 and had CABG w/Dr Patel on 12/01. Pt also had right subclavian tunneled dialysis catheter placed on 12/13 (pt is followed at [facility]). On 12/14 pt was discharged to [facility]. Pt states he returned home last week w/Bernard ; this CM sent ED visit notes/updates via [employer]. Pt states an RN is visiting tomorrow to go over his medications, etc and that PT/OT have been visiting. Pt also has home oxygen and reports no issues. Pt is followed by [facility] and pt states he spoke w/Velma Pascual ([phone]) today. Pt states he has an appt on 01/13 w/Dr Shah. Pt accompanied to the ED by his brother, Asad, who will transport pt home. CM available for further assistance if needed. Date Signed: 01/04/2018 08:43 PM Electronically Signed By:Mamie Ely RN Intervention Information
== END 2018-01-04 19:45 | disposition home or self-care (01) ==
DX: I95.1 Orthostatic hypotension (principal); J90 Pleural effusion, not elsewhere classified; I51.7 Cardiomegaly; I50.9 Heart failure, unspecified; E11.9 Type 2 diabetes mellitus without complications; Z95.1 Presence of aortocoronary bypass graft; Z79.4 Long term (current) use of insulin
CPT/HCPCS: 36415-PO; 84484-PO

== ENCOUNTER 2018-03-11 06:51 | Day surgery (SDC) | payer OTHER ==
[2018-03-11] MEDS ORDERED: ceFAZolin 2 GM/DEXTROSE 100 ML IV ONE (07:05)
[2018-03-11] MEDS ORDERED: LR 1,000 ML IV ONE (07:10)
[2018-03-11] MEDS ORDERED: PROTAMINE SULFATE 50 MG/5 ML VIAL IVP ONE ×2 (07:26→09:04)
[2018-03-11] MEDS ORDERED: THROMBIN (BOVINE) 20,000 UNIT SPRAY TP ONE (07:26)
[2018-03-11] MEDS ORDERED: THROMBIN (BOVINE) 5,000 UNIT VIAL TP ONE ×3 (07:26→09:04)
[2018-03-11] MEDS ORDERED: BUPIVACAINE 0.5% 30 ML SDV ONE ×2 (07:27→09:04)
[2018-03-11 07:45] LABS: PLATELET COUNT 397 10^3/uL (150-400)
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
[2018-03-11 07:53] LABS: INR 1.3 (0.83-1.16); PROTIME(PATIENT) 16.4 SEC (12.0-15.0)
[2018-03-11] MEDS ORDERED: PROPOFOL 200 MG/20 ML VIAL ONE (08:15)
[2018-03-11] MEDS ORDERED: fentaNYL 100 MCG/2 ML INJ ONE (08:15)
[2018-03-11] MEDS ORDERED: LIDOCAINE 2% 5 ML SDV ONE (08:16)
[2018-03-11] MEDS ORDERED: DEXAMETHASONE 4 MG/ML VIAL ONE (08:48)
[2018-03-11] MEDS ORDERED: ONDANSETRON 4 MG/2 ML VIAL ONE (08:49)
[2018-03-11] MEDS ORDERED: fentaNYL 100 MCG/2 ML INJ IVP PRN (08:51)
[2018-03-11] MEDS ORDERED: NALOXONE HCL 0.4 MG/ML INJ IVP PRN (08:51)
[2018-03-11] MEDS ORDERED: MEPERIDINE 25 MG/0.5 ML AMP IVP PRN (08:51)
[2018-03-11] MEDS ORDERED: PROMETHAZINE HCL 25 MG/ML INJ IVP PRN (08:51)
[2018-03-11] MEDS ORDERED: HYDROmorphONE/DILAUDID 2 MG/ML INJ IVP PRN (08:51)
--- NOTE | 2018-03-11 08:52 | POSTANESTH ---
Post Anesthetic Evaluation Cardiovascular Status: Normal, Stable Respiratory Status: Normal, Stable Level of Consciousness/Mental Status: Can Participate in Eval, Moderately Sleepy Pain Control: Adequate, Prn Tx Ordered Nausea/Vomiting Control: Adequate, Prn Tx Ordered Complications Possibly Related to Anesthesia: None Noted
[2018-03-11] MEDS ORDERED: ePHEDrine SULFATE 25 MG/5 ML SYR ONE (08:55)
[2018-03-11] MEDS ORDERED: THROMBIN (BOVINE) 20,000 UNIT VIAL TP ONE (09:03)
[2018-03-11] MEDS ORDERED: PAPAVERINE HCL 60 MG/2 ML SDV ONE (09:04)
--- NOTE | 2018-03-11 10:18 | POSTOPPROG ---
Post Op Note Date of Operation: 03/11/18 Surgeon: Neymar Dsouza Manager Sign: Dai Anesthesiologist: Liz Anesthesia: GET(General Endotracheal) Pre-op Diagnosis: ESRD Post-op Diagnosis: same Indication: same, need for dialysis access Procedure: LUE radiocephalic AVF Findings: good thrill Inf/Abcess present in the surg proc area at time of surgery?: No Depth: Superfical (Skin SQ) EBL: Minimal
[2018-03-11] MEDS ORDERED: oxyCODONE IR 5 MG TAB ONE (10:43)
[2018-03-11] MEDS ORDERED: HYDROCODONE/APAP 5/325 TAB PO ONE (10:45)
[2018-03-11] MEDS ORDERED: HYDROCODONE/APAP 5/325 TAB ONE (10:52)
[2018-03-11 11:20] VITALS: BP 140/67
--- NOTE | 2018-03-12 20:30 | GOP ---
DATE OF OPERATION: SURGEON: Neymar Dsouza MD SOILED LINEN DISTRIBUTOR: Ana Lala NP. PREOPERATIVE DIAGNOSIS: Renal failure. POSTOPERATIVE DIAGNOSIS: Renal failure. PROCEDURE PERFORMED: 1. Ultrasound vein mapping, left arm. 2. Radiocephalic arteriovenous fistula. FINDINGS: Patient was found to have a good radial artery and a good cephalic vein in the forearm as well as a good cephalic vein in the upper arm. A radiocephalic fistula was selected. DESCRIPTION OF PROCEDURE: The patient was taken to the operating room where he received satisfactory general endotracheal anesthesia by Dr. Hill, placed in supine position with the left arm outstretche d on an arm board, prepped and draped in the usual sterile fashion. An ultrasound was used to map th e veins in the arm with the above-noted findings. The cephalic vein at the wrist was quite adequate. It was a fair distance away from the radial artery. Incision was made over the radial artery which was then dissected free and encircled with vessel loops. A 2nd counterincision was made over the ce phalic vein and more on the dorsum of the wrist. It was dissected free and mobilized for several hailey timeters so that it could be transposed over to the radial artery. It was ligated distally and then passed over to the radial artery in a subcutaneous tunnel. An end-to-side anastomosis was then made after the patient had been heparinized. This was done with a running 6-0 Prolene suture creating an 8 mm anastomosis. Flow was first established through the fistula and then back down the hand, mainta ined a good distal radial pulse and capillary filling as well as good flow in the fistula. Suture li ne appeared to be hemostatic. Heparin was reversed with protamine. Both wounds were infiltrated wit h 0.5% Marcaine and closed with 3-0 Vicryl for the subcu, 4-0 Monocryl subcuticular stitch for the sk in. He tolerated the procedure well. Blood loss negligible. No complications. Taken to the recover y room in good condition. /[id number]/MODL
== END 2018-03-11 11:37 | disposition home or self-care (01) ==
LOC: FSGY 06:51
PROVIDERS: ATTEND Surgery
DX: N18.6 End stage renal disease (principal); R21 Rash and other nonspecific skin eruption; I50.22 Chronic systolic (congestive) heart failure; I25.810 Atherosclerosis of coronary artery bypass graft(s) without angina pectoris; I34.0 Nonrheumatic mitral (valve) insufficiency; I11.0 Hypertensive heart disease with heart failure; Z95.1 Presence of aortocoronary bypass graft; Z95.2 Presence of prosthetic heart valve; Z87.820 Personal history of traumatic brain injury; Z87.891 Personal history of nicotine dependence
CPT/HCPCS: J0690; J1100; J1644; J2405; J2440; J2704; J2720; J3010